=== PATIENT | female | born 1995 | race African-American/Black ===

== ENCOUNTER → 2016-09-18 | Outpatient (CLI) | payer OTHER ==
[~2016-09-18] MED LIST: ARIP1.3I INJ
[2016-09-18 14:09] LABS: PROLACTIN 14.59 ng/mL
== END | disposition home or self-care (01) ==
LOC: C.LAB1850 12:07
PROVIDERS: ATTEND Family Medicine
DX: N64.3 Galactorrhea not associated with childbirth (principal); Z20.2 Contact with and (suspected) exposure to infections with a predominantly sexual mode of transmission; F19.10 Other psychoactive substance abuse, uncomplicated

== ENCOUNTER → 2016-09-21 | Outpatient (CLI) | payer OTHER ==
[2016-09-25 12:10] LABS: CHLAMYDIA TRACH RNA*** NOT DETECTED (NOT DETECTED); GC (NEIS GONORRHOEAE)RNA** NOT DETECTED (NOT DETECTED)
== END | disposition home or self-care (01) ==
LOC: C.LABSPEC 11:08
PROVIDERS: ATTEND Family Medicine
DX: Z20.2 Contact with and (suspected) exposure to infections with a predominantly sexual mode of transmission (principal)

== ENCOUNTER → 2016-11-28 | Outpatient (CLI) | payer OTHER ==
[2016-11-28 13:26] LABS: BASO % 0.6 %; BASO ABS # 0.04 K/uL (0-0.2); COMPLETE YES; EOS % 1.7 %; HEMATOCRIT 43.1 % (37-47); IG% 0.2 %; LYMPH % 33.5 %; LYMPH ABS # 2.15 K/uL (1.2-3.4); MEAN CELL VOLUME 93.9 fL (80-100); MEAN CORPUSCULAR HEMOGLOBIN 32.2 pg (25-34); MEAN CORPUSCULAR HGB CONC 34.3 g/dl (32-36); MEAN PLATELET VOLUME 10.6 fL (7.4-10.4); MONO % 8.9 %; NEUT % 55.1 %; PLATELET COUNT 305 K/uL (130-400); RED BLOOD COUNT 4.59 M/uL (4.2-5.4); WHITE BLOOD COUNT 6.42 K/uL (4.8-10.8)
[2016-11-28 13:51] LABS: ALT/SGPT 20 U/L (12-78); AST/SGOT 12 U/L (15-37); BLOOD UREA NITROGEN 13 mg/dl (7-18); BUN/CREATININE RATIO 15.2 (10-20); CALCIUM 9.3 mg/dl (8.5-10.1); CARBON DIOXIDE 29 mmol/L (21-32); CHLORIDE 106 mmol/L (98-107); CREATININE 0.86 mg/dl (0.60-1.20); GLUCOSE 85 mg/dl (70-99); POTASSIUM 3.8 mmol/L (3.5-5.1); SODIUM 138 mmol/L (136-145)
[2016-11-28 13:54] LABS: ALB/GLOB RATIO 1.1 (0.9-2); ALKALINE PHOSPHATASE 78 U/L (45-117)
== END | disposition home or self-care (01) ==
LOC: C.LAB1850 12:27
PROVIDERS: ATTEND Student in an Organized Health Care Education/Training Program
DX: Z79.899 Other long term (current) drug therapy (principal)

== ENCOUNTER → 2017-01-26 | Outpatient (CLI) | payer OTHER ==
[2017-01-26 14:53] LABS: HEMATOCRIT 40.3 % (37-47); MEAN CELL VOLUME 95.7 fL (80-100); MEAN CORPUSCULAR HEMOGLOBIN 31.8 pg (25-34); MEAN CORPUSCULAR HGB CONC 33.3 g/dl (32-36); MEAN PLATELET VOLUME 11.1 fL (7.4-10.4); PLATELET COUNT 247 K/uL (130-400); RED BLOOD COUNT 4.21 M/uL (4.2-5.4); WHITE BLOOD COUNT 11.12 K/uL (4.8-10.8)
== END | disposition home or self-care (01) ==
LOC: C.LAB1850 13:26
PROVIDERS: ATTEND Student in an Organized Health Care Education/Training Program
DX: Z79.899 Other long term (current) drug therapy (principal)

== ENCOUNTER → 2017-04-10 | Outpatient (CLI) | payer OTHER ==
[~2017-04-10] MED LIST changes: +AMOX875T3 PO; +BCPILLS PO; +DIVA500T3 PO; +FLUT0.15 NAE; +NAPR1TAB48 PO; +ONDA4TAB10 SL; +OXYC1CAP5 PO
== END | disposition home or self-care (01) ==
LOC: C.LAB1850 14:17
PROVIDERS: ATTEND Student in an Organized Health Care Education/Training Program
DX: Z51.81 Encounter for therapeutic drug level monitoring (principal); Z79.899 Other long term (current) drug therapy

== ENCOUNTER → 2017-04-18 | Outpatient (CLI) | payer OTHER ==
[~2017-04-18] MED LIST changes: -AMOX875T3 PO; -BCPILLS PO; -DIVA500T3 PO; -FLUT0.15 NAE; -NAPR1TAB48 PO; -ONDA4TAB10 SL; -OXYC1CAP5 PO
[2017-04-18 17:15] LABS: FOLLICLE STIMULAT HORMONE 7.45 IU/L; LUTEINIZING HORMONE 12.09 IU/L
== END | disposition home or self-care (01) ==
LOC: C.LAB1850 15:07
PROVIDERS: ATTEND Neuromusculoskeletal Medicine & OMM
DX: N91.2 Amenorrhea, unspecified (principal); R63.5 Abnormal weight gain

== ENCOUNTER → 2017-04-27 | Outpatient (CLI) | payer OTHER | END | disposition home or self-care (01) | LOC: C.LABSPEC 13:41 | PROVIDERS: ATTEND Physician Assistant | DX: Z01.419 Encounter for gynecological examination (general) (routine) without abnormal findings (principal); N76.6 Ulceration of vulva ==

== ENCOUNTER → 2017-04-27 | Outpatient (CLI) | payer OTHER | END | disposition home or self-care (01) | LOC: C.PAPS 16:32 | PROVIDERS: ATTEND Physician Assistant | DX: Z01.419 Encounter for gynecological examination (general) (routine) without abnormal findings (principal) ==

== ENCOUNTER → 2017-05-17 | Outpatient (CLI) | payer OTHER | END | disposition home or self-care (01) | LOC: C.LABSPEC 15:58 | PROVIDERS: ATTEND Physician Assistant | DX: N91.2 Amenorrhea, unspecified (principal) ==

== ENCOUNTER → 2017-06-21 | Outpatient (CLI) | payer OTHER | END | disposition home or self-care (01) | LOC: C.LABSPEC 13:43 | PROVIDERS: ATTEND Physician Assistant | DX: Z20.2 Contact with and (suspected) exposure to infections with a predominantly sexual mode of transmission (principal); N91.2 Amenorrhea, unspecified ==

== ENCOUNTER → 2017-07-17 | Outpatient (CLI) | payer OTHER ==
[2017-07-17 15:14] LABS: ALBUMIN 3.5 gm/dl (3.4-5.0); ALKALINE PHOSPHATASE 66 U/L (45-117); ALT/SGPT 14 U/L (12-78); AST/SGOT 9 U/L (15-37); TOTAL PROTEIN 7.2 gm/dl (6.4-8.2)
== END | disposition home or self-care (01) ==
LOC: C.LAB1850 13:39
PROVIDERS: ATTEND Student in an Organized Health Care Education/Training Program
DX: Z51.81 Encounter for therapeutic drug level monitoring (principal); Z79.899 Other long term (current) drug therapy

== ENCOUNTER → 2017-11-19 | Outpatient (CLI) | payer OTHER ==
[~2017-11-19] MED LIST changes: -ARIP1.3I INJ; +BCPILLS PO; +DIVA500T3 PO; +FLUT0.15 NAE
== END | disposition home or self-care (01) ==
LOC: C.LABBC 14:55
PROVIDERS: ATTEND Neuromusculoskeletal Medicine & OMM
DX: Z72.51 High risk heterosexual behavior (principal); Z20.2 Contact with and (suspected) exposure to infections with a predominantly sexual mode of transmission

== ENCOUNTER 2019-06-05 19:20 | Inpatient (IN) ==
[2019-06-05] MEDS ORDERED: LORazepam 2 MG/ML VIAL (IM USE) IM STA (19:47)
[2019-06-05] MEDS ORDERED: HALOPERIDOL LACTATE 5 MG/ML 1 ML VIAL IM STA (19:47)
[2019-06-05] MEDS ORDERED: DiphenhydrAMINE HCL 50 MG/ML VIAL IM STA (19:47)
[2019-06-05] MEDS ORDERED: HALOPERIDOL LACTATE 5 MG/ML 1 ML VIAL IM PRN (20:11)
[2019-06-05] MEDS ORDERED: DiphenhydrAMINE HCL 50 MG/ML VIAL IM PRN (20:11)
[2019-06-05] MEDS ORDERED: LORazepam 2 MG/ML VIAL (IM USE) IM PRN (20:11)
[2019-06-05 21:10] LABS: Basophils # (auto) 0.02 K/uL (0-0.2); Basophils % (auto) 0.2 %; Eosinophils # (auto) 0.01 K/uL (0-0.5); Eosinophils % (auto) 0.1 %; Hematocrit (blood only) 41.6 % (37-47); Hemoglobin 14.2 g/dL (12.0-16.0); Immature Granulocytes # (auto) 0.02 K/uL (0.00-0.02); Immature Granulocytes % (auto) 0.2 %; Lymphocytes # (auto) 1.14 K/uL (1.2-3.4); Lymphocytes % (auto) 10.9 %; Mean Corpuscular Hemoglobin 32.9 pg (25-34); Mean Corpuscular Hgb Conc 34.1 g/dL (32-36); Mean Corpuscular Volume 96.3 fL (80-100); Mean Platelet Volume 10.4 fL (7.4-10.4); Monocytes # (auto) 0.74 K/uL (0.11-0.59); Monocytes % (auto) 7.1 %; Neutrophils # (auto) 8.55 K/uL (1.4-6.5); Neutrophils % (auto) 81.5 %; Platelet Count 296 K/uL (130-400); RDW Coefficient of Variation 12.6 % (11.5-14.5); Red Blood Count 4.32 M/uL (4.2-5.4); White Blood Count 10.48 K/uL (4.8-10.8)
[2019-06-05 21:26] LABS: Albumin Level 4.3 gm/dl (3.4-5.0); BUN Creatinine Ratio 7.1 (10-20); Calcium 9.8 mg/dl (8.5-10.1); Creatinine Clr Calc Pharmacy 62.4 ml/min; Est GFR (African American) 77.4; Est GFR (Non-African American) 66.8; Potassium 3.1 mmol/L (3.5-5.1)
[2019-06-05 21:37] LABS: Albumin Globulin Ratio 1.2 (0.9-2); Bilirubin,Total 0.4 mg/dl (0.2-1); Globulin 3.5 gm/dl (2.5-4.0); Thyroid Stimulating Hormone 0.515 uIu/ml (0.300-4.500); Total Protein 7.8 gm/dl (6.4-8.2)
[2019-06-05 21:42] LABS: Pregnancy Test, Serum Negative (Negative)
[2019-06-05 23:07] LABS: Appearance Urine Clear (Clear); Bacteria Urine Automated 1+ (Negative); Bilirubin Urine Negative (Negative); Blood Urine Trace (Negative); Color Urine Yellow; Epithelial Cell Urine Auto >30 /lpf (0-5); Glucose Urine UA Negative (Negative); Ketones Urine Trace (Negative); Leukocyte Esterase Urine Trace (Negative); Nitrite Urine Negative (Negative); Protein Urine Negative (Negative); RBC Urine Automated 0-4 /hpf (0-4); Specific Gravity Urine 1.012 (1.000-1.030); Urobilinogen Urine Negative (Negative); pH Urine 5.5 (4.5-7.5)
[2019-06-05 23:25] LABS: Amphetamines+Metham, Urine Neg (Neg); Barbiturates, Urine Neg (Neg); Benzodiazepine, Urine Neg (Neg); Cocaine, Urine Neg (Neg); MDMA (Ecstacy), Urine Neg (Neg); Methadone, Urine Neg (Neg); Opiate, Urine Neg (Neg); Phencyclidine, Urine Neg (Neg)
--- NOTE | 2019-06-06 01:31 | Emergency Department Note ---
Entered by Ny Negron acting as a scribe for Bob Rushing MD History of Present Illness General Chief complaint: Mental Health Evaluation Stated complaint: MENTAL HEALTH EVAL Time Seen by Provider: 06/05/19 19:30 Source: family (mom) History of Present Illness Onset (ago): week(s) (1) Location: head (general) Pain Consistency: + other (episodes) Quality: + other (paranoia) Associated symptoms: + other (christin, marijuana and methamphetamine use) The patient is a 24 year old female who presents to the Emergency Room for a mental health evaluation for episodes of paranoia occurring for the past week. The patient eloped prior to be seen. She was running without clothing through the parking lot. The [place] police department was called. The patient's mom reports the patient has had mental health problems including bipolar disorder since she was a child. She states the patient has been hospitalized numerous times. She notes the patient has been on a variety of medications, and notes Lamictal seemed to work best while she was compliant with it. The patient's mom reports the patient is currently off her medication, is not seeing a psychiatrist, and is using both marijuana and methamphetamines. She notes she went to crisis with the patient at the beginning of this week however the patient refused to sign the papers and ripped them up instead and walked out. The patient's mom states the patient has a history of cutting. She states she went to the patient's apartment [facility] to bring her her TV back which the patient had been paranoid about the previous night. She states there was blood all over the patient's sheets. She states she said she was not going to talk with the patient until the patient decided to get help. The patient's mom reports the patient stated she wanted to go to the [facility]. She states the patient then became manic on the way to the ER. Home Medications Home Medications Medication Instructions Recorded Confirmed Type trazodone 50 mg tablet 50 mg PO DAILY #30 tab 06/02/19 06/05/19 Rx Allergies Allergy/AdvReac Type Severity Reaction Status Date / Time No Known Allergies Allergy Unverified 06/05/19 23:26 Past Med/Surg History Medical History Bipolar disorder Lung nodule, solitary Surgical History No history of previous surgery Family History Aunt Breast cancer Mother Myocardial infarction Other Ovarian cancer Denies family history of Prostate cancer Colorectal cancer Social History Preferred Language: Singaporean Communication Ability: Effective Visual Impairment: No Limitations Hearing Ability: Normal marital status: Current Living Situation: Alone current occupational status: employed current occupation: [email or web address] Feels Safe at Home: Yes Smoking Status: Current every day smoker Cigarettes Per Day: 20 ; Hx Alcohol Use: Yes Alcohol type: beer Alcohol Intake Frequency: Daily Hx Substance Use: Yes substance use type: marijuana Last Used Substance: Hours (ago) Childhood Exposure to Second-Hand Smoke: Yes Dental Care, Regularly: Yes Physical Activity Frequency: Daily Seatbelt Use: always Sunscreen Use: No Review of Systems See HPI for pertinent positives & negatives. and A total of 10 systems reviewed and were otherwise negative Physical Exam Vital Signs Vital Signs - 24 hr 06/05/19 19:24 06/05/19 21:57 06/05/19 23:54 Temperature 36.9 C Temperature Source Oral Pulse Rate 141 H Pulse Rate [Finger] 73 Respiratory Rate 24 18 18 Respiratory Effort / Characteristics Non-Labored Spontaneous Respiratory Depth Normal Blood Pressure 150/85 H Blood Pressure [Right Arm] Blood Pressure Mean 106 Blood Pressure Mean [Right Arm] Pulse Oximetry 99 96 Oxygen Delivery Method Room Air Room Air Sepsis Action Taken by Nursing No Action Required 06/06/19 00:38 Temperature Temperature Source Pulse Rate Pulse Rate [Finger] Respiratory Rate Respiratory Effort / Characteristics Respiratory Depth Blood Pressure Blood Pressure [Right Arm] 123/70 Blood Pressure Mean Blood Pressure Mean [Right Arm] 87 Pulse Oximetry Oxygen Delivery Method Sepsis Action Taken by Nursing GENERAL: Sleeping comfortably. EYE EXAM: Normal conjunctiva. PERRL, no anisocoria and EOM's grossly intact w/o pain. OROPHARYNX: Moist mucous membranes. Grossly normal dentition. NECK: Supple, no nuchal rigidity, no adenopathy. No signs of meningismus. LUNGS: Bilateral wheezes. Normal chest wall mechanics. HEART: NSR, no MRG. ABDOMEN: Abdomen soft, normo-active bowel sounds, no masses, no rebound or guarding. BACK: No bruising, no obvious step-offs. SKIN: No rashes and no bruising. UPPER EXTREMITIES: Upper extremities are grossly normal. LOWER EXTREMITIES: No pitting edema. NEURO EXAM: Cranial nerves II-XII grossly intact, moves all 4 extremities on command w/o issue. Course Course 1944: Past medical records reviewed. The patient was evaluated in room A04B. The patient was combative and needed to be restrained. 2119: Upon reevaluation, the patient was prone and sleeping. 0130: The patient was signed out to Dr. Bliss. Administered Medications Discontinued Medications Diphenhydramine HCl (Benadryl) 25 mg IM NOW STA Stop: 06/05/19 19:48 Last Admin: 06/05/19 20:20 Dose: 25 mg Documented by: [id number] Haloperidol Lactate (Haldol) 10 mg IM NOW STA Stop: 06/05/19 19:48 Last Admin: 06/05/19 20:20 Dose: 10 mg Documented by: [id number] Lorazepam (Ativan) 1 mg IM NOW STA Stop: 06/05/19 19:48 Last Admin: 06/05/19 20:20 Dose: 1 mg Documented by: [id number] Critical Care Time Critical Care Time: Yes Total Critical Care Time: 35 I have personally spent 35 minutes of critical care time in the direct management of this patient. This includes bedside care, interpretation of diagnostic studies, and testing, discussion with consultants, patient, and family members, and other required patient management activities. This 35 minut es is in excess of all separately billable procedures. Medical Decision Making Differential Diagnosis Differential diagnoses considered include mood disorder, infection, hypoglycemia, electrolyte abnormalities, cardiac sources, intracerebral event, toxicologic, neurologic, as well as others. Medical Records Attestation: I reviewed the patient's medical records. Home Medications Current Medication List: was personally reviewed by me Laboratory Data Attestation: I reviewed the patient's lab results. Result diagrams: 06/05/19 20:53 06/05/19 20:53 Lab Results 06/05/19 06/05/19 06/05/19 Range/Units 20:53 20:53 20:53 WBC 10.48 (4.8-10.8) K/uL RBC 4.32 (4.2-5.4) M/uL Hgb 14.2 (12.0-16.0) g/dL Hct 41.6 (37-47) % MCV 96.3 (80-100) fL MCH 32.9 (25-34) pg MCHC 34.1 (32-36) g/dL RDW Std Deviation 44.0 (36.4-46.3) fL RDW Coeff of Conner 12.6 (11.5-14.5) % Plt Count 296 (130-400) K/uL MPV 10.4 (7.4-10.4) fL Immature Gran % (Auto) 0.2 % Neut % (Auto) 81.5 % Lymph % (Auto) 10.9 % [place] % (Auto) 7.1 % Eos % (Auto) 0.1 % Baso % (Auto) 0.2 % Immature Gran # (Auto) 0.02 (0.00-0.02) K/uL Neut # (Auto) 8.55 H (1.4-6.5) K/uL Lymph # (Auto) 1.14 L (1.2-3.4) K/uL [place] # (Auto) 0.74 H (0.11-0.59) K/uL Eos # (Auto) 0.01 (0-0.5) K/uL Baso # (Auto) 0.02 (0-0.2) K/uL Sodium 140 (136-145) mmol/L Potassium 3.1 L (3.5-5.1) mmol/L Chloride 108 H (98-107) mmol/L Carbon Dioxide 18 L (21-32) mmol/L Anion Gap 14.0 H (3-11) BUN 8 (7-18) mg/dl Creatinine 1.14 (0.6-1.2) mg/dl Est Cr Clr Drug Dosing 62.4 ml/min Est GFR ( Amer) 77.4 Est GFR (Non-Af Amer) 66.8 BUN/Creatinine Ratio 7.1 L (10-20) Glucose 146 H (70-99) mg/dl Calcium 9.8 (8.5-10.1) mg/dl Total Bilirubin 0.4 (0.2-1) mg/dl AST 16 (15-37) U/L ALT 20 (12-78) U/L Alkaline Phosphatase 80 (45-117) U/L Total Protein 7.8 (6.4-8.2) gm/dl Albumin 4.3 (3.4-5.0) gm/dl Globulin 3.5 (2.5-4.0) gm/dl Albumin/Globulin Ratio 1.2 (0.9-2) TSH 0.515 (0.300-4.500) uIu/ml HCG, Qual (Negative) Urine Color Urine Appearance (Clear) Urine pH (4.5-7.5) Ur Specific [place] (1.000-1.030) Urine Protein (Negative) Urine Glucose (UA) (Negative) Urine Ketones (Negative) Urine Blood (Negative) Urine Nitrite (Negative) Urine Bilirubin (Negative) Urine Urobilinogen (Negative) Ur Leukocyte Esterase (Negative) Urine WBC (Auto) (0-5) /hpf Urine RBC (Auto) (0-4) /hpf U Hyaline Cast (Auto) (0-5) /lpf U Epithel Cells (Auto) (0-5) /lpf Urine Bacteria (Auto) (Negative) Salicylates 5.0 (2.8-20) mg/dl Urine Opiates Screen (Neg) Ur Methadone, Qual (Neg) Acetaminophen 17 (10-30) ug/ml Urine Barbiturates (Neg) Ur Phencyclidine (PCP) (Neg) U Amphetamin/Meth Scrn (Neg) MDMA (Ecstasy) Screen (Neg) U Benzodiazepines Scrn (Neg) Ur Cocaine Metabolite (Neg) U Marijuana (THC) Screen (Neg) Ethyl Alcohol mg/dL (0-3) mg/dl 06/05/19 06/05/19 06/05/19 Range/Units 20:53 20:53 22:55 WBC (4.8-10.8) K/uL RBC (4.2-5.4) M/uL Hgb (12.0-16.0) g/dL Hct (37-47) % MCV (80-100) fL MCH (25-34) pg MCHC (32-36) g/dL RDW Std Deviation (36.4-46.3) fL RDW Coeff of Conner (11.5-14.5) % Plt Count (130-400) K/uL MPV (7.4-10.4) fL Immature Gran % (Auto) % Neut % (Auto) % Lymph % (Auto) % [place] % (Auto) % Eos % (Auto) % Baso % (Auto) % Immature Gran # (Auto) (0.00-0.02) K/uL Neut # (Auto) (1.4-6.5) K/uL Lymph # (Auto) (1.2-3.4) K/uL [place] # (Auto) (0.11-0.59) K/uL Eos # (Auto) (0-0.5) K/uL Baso # (Auto) (0-0.2) K/uL Sodium (136-145) mmol/L Potassium (3.5-5.1) mmol/L Chloride (98-107) mmol/L Carbon Dioxide (21-32) mmol/L Anion Gap (3-11) BUN (7-18) mg/dl Creatinine (0.6-1.2) mg/dl Est Cr Clr Drug Dosing ml/min Est GFR ( Amer) Est GFR (Non-Af Amer) BUN/Creatinine Ratio (10-20) Glucose (70-99) mg/dl Calcium (8.5-10.1) mg/dl Total Bilirubin (0.2-1) mg/dl AST (15-37) U/L ALT (12-78) U/L Alkaline Phosphatase (45-117) U/L Total Protein (6.4-8.2) gm/dl Albumin (3.4-5.0) gm/dl Globulin (2.5-4.0) gm/dl Albumin/Globulin Ratio (0.9-2) TSH (0.300-4.500) uIu/ml HCG, Qual Negative (Negative) Urine Color Urine Appearance (Clear) Urine pH (4.5-7.5) Ur Specific [place] (1.000-1.030) Urine Protein (Negative) Urine Glucose (UA) (Negative) Urine Ketones (Negative) Urine Blood (Negative) Urine Nitrite (Negative) Urine Bilirubin (Negative) Urine Urobilinogen (Negative) Ur Leukocyte Esterase (Negative) Urine WBC (Auto) (0-5) /hpf Urine RBC (Auto) (0-4) /hpf U Hyaline Cast (Auto) (0-5) /lpf U Epithel Cells (Auto) (0-5) /lpf Urine Bacteria (Auto) (Negative) Salicylates (2.8-20) mg/dl Urine Opiates Screen Neg (Neg) Ur Methadone, Qual Neg (Neg) Acetaminophen (10-30) ug/ml Urine Barbiturates Neg (Neg) Ur Phencyclidine (PCP) Neg (Neg) U Amphetamin/Meth Scrn Neg (Neg) MDMA (Ecstasy) Screen Neg (Neg) U Benzodiazepines Scrn Neg (Neg) Ur Cocaine Metabolite Neg (Neg) U Marijuana (THC) Screen Pos H (Neg) Ethyl Alcohol mg/dL < 3.0 (0-3) mg/dl 06/05/19 Range/Units 22:55 WBC (4.8-10.8) K/uL RBC (4.2-5.4) M/uL Hgb (12.0-16.0) g/dL Hct (37-47) % MCV (80-100) fL MCH (25-34) pg MCHC (32-36) g/dL RDW Std Deviation (36.4-46.3) fL RDW Coeff of Conner (11.5-14.5) % Plt Count (130-400) K/uL MPV (7.4-10.4) fL Immature Gran % (Auto) % Neut % (Auto) % Lymph % (Auto) % [place] % (Auto) % Eos % (Auto) % Baso % (Auto) % Immature Gran # (Auto) (0.00-0.02) K/uL Neut # (Auto) (1.4-6.5) K/uL Lymph # (Auto) (1.2-3.4) K/uL [place] # (Auto) (0.11-0.59) K/uL Eos # (Auto) (0-0.5) K/uL Baso # (Auto) (0-0.2) K/uL Sodium (136-145) mmol/L Potassium (3.5-5.1) mmol/L Chloride (98-107) mmol/L Carbon Dioxide (21-32) mmol/L Anion Gap (3-11) BUN (7-18) mg/dl Creatinine (0.6-1.2) mg/dl Est Cr Clr Drug Dosing ml/min Est GFR ( Amer) Est GFR (Non-Af Amer) BUN/Creatinine Ratio (10-20) Glucose (70-99) mg/dl Calcium (8.5-10.1) mg/dl Total Bilirubin (0.2-1) mg/dl AST (15-37) U/L ALT (12-78) U/L Alkaline Phosphatase (45-117) U/L Total Protein (6.4-8.2) gm/dl Albumin (3.4-5.0) gm/dl Globulin (2.5-4.0) gm/dl Albumin/Globulin Ratio (0.9-2) TSH (0.300-4.500) uIu/ml HCG, Qual (Negative) Urine Color Yellow Urine Appearance Clear (Clear) Urine pH 5.5 (4.5-7.5) Ur Specific [place] 1.012 (1.000-1.030) Urine Protein Negative (Negative) Urine Glucose (UA) Negative (Negative) Urine Ketones Trace H (Negative) Urine Blood Trace H (Negative) Urine Nitrite Negative (Negative) Urine Bilirubin Negative (Negative) Urine Urobilinogen Negative (Negative) Ur Leukocyte Esterase Trace H (Negative) Urine WBC (Auto) 1-5 (0-5) /hpf Urine RBC (Auto) 0-4 (0-4) /hpf U Hyaline Cast (Auto) 1-5 (0-5) /lpf U Epithel Cells (Auto) >30 H (0-5) /lpf Urine Bacteria (Auto) 1+ H (Negative) Salicylates (2.8-20) mg/dl Urine Opiates Screen (Neg) Ur Methadone, Qual (Neg) Acetaminophen (10-30) ug/ml Urine Barbiturates (Neg) Ur Phencyclidine (PCP) (Neg) U Amphetamin/Meth Scrn (Neg) MDMA (Ecstasy) Screen (Neg) U Benzodiazepines Scrn (Neg) Ur Cocaine Metabolite (Neg) U Marijuana (THC) Screen (Neg) Ethyl Alcohol mg/dL (0-3) mg/dl MDM Narrative The patient is a 24 year old female who presents to the Emergency Room for a mental health evaluation for episodes of paranoia occurring for the past week Prior to being seen the patient had eloped and was unclothed running around the parking lot. Please were called and the patient was brought back to the emergency department. Patient was seen and evaluated at the bedside. The patient was initially very combative and aggressive and after attempts to de-escalate the situation the patient would not respond to verbal de-escalation but the patient had to be physically restrained and chemically sedated for the safety of patient as well as staff. Once the patient was was agitated the patient's exam was completed. Patient did have some scant wheezes may be related to her chronic methamphetamine use which she did report using inhaled. His blood work does show a mild anion gap and slightly lower bicarb but I believe this is likely related to dehydration. Patient does have a normal white count H&H. The patient's potassium slightly low. This may be repleted in the diet with the patient is more awake and able to tolerate by mouth. The patient's urinalysis shows bacteria but does have epithelial cells. Do not believe she has a UTI. UDS does show positive for THC. Alcohol is negative. The patient does have positive but not elevated Tylenol and salicylates. PCP and meth are negative. Patient has normal LFTs. The patient's initial tachycardia did resolve with sedation. I believe her tachycardia was secondary to her agitation. Patient was signed out pending reevaluation and disposition. Impression & Plan Paranoia, Aggressive behavior, Dehydration, Hypokalemia Discharge Plan Visit Data Chief Complaint: Mental Health Evaluation Stated Complaint: MENTAL HEALTH EVAL ED Provider: Bob Rushing Discharge Problem: Paranoia, Aggressive behavior, Dehydration, Hypokalemia Forms Stand Alone Forms: My [facility], Suicide Prevention Resources Prescriptions Prescriptions: No Action trazodone 50 mg tablet 50 mg PO DAILY Qty: 30 RF: 5 Referrals Referrals: Jesse Pruett III, CRNP [Primary Care Provider] - The pauloibe's documentation has been prepared under my direction and personally reviewed by me in its entirety. I confirm that the note above accurately reflects all work, treatment, procedures, and medical decision making performed by me.
--- NOTE | 2019-06-06 03:13 | Emergency Department Note ---
ED Visit Note This case was signed out to me at change of shift awaiting mental health evaluation. 0230: The ED psychiatric pillowcase turner attempted to evaluate the patient around 2 AM but could not arouse her. 0405: The patient is hemodynamically stable at this time. She is sleeping. 0800: The case will be signed out to Dr. Gilbert at change of shift for further psychiatric evaluation. .
--- NOTE | 2019-06-06 12:26 | Emergency Department Note ---
ED Visit Note The patient was accepted to the [facility]. Secure transport arranged. .
--- NOTE | 2019-06-06 15:17 | Emergency Department Note ---
ED Visit Note Correction to the last note. The patient was accepted to [facility] [address] .
[2019-06-06] MEDS ORDERED: BISMUTH SUBSALICYLATE PER ML OMNICELL CHARGE PO PRN ×2 (16:23→17:02)
[2019-06-06] MEDS ORDERED: MAGNESIUM HYDROXIDE SUSP 30 ML UDC PO PRN ×2 (16:23→17:02)
[2019-06-06] MEDS ORDERED: ALUMINUM/MAGNESIUM SUSP 30 ML UDC PO PRN ×2 (16:23→17:02)
[2019-06-06] MEDS ORDERED: SODIUM CHLORIDE 0.65% NA SOLN 45 ML (OCEAN) PRN ×2 (16:23→17:02)
[2019-06-06] MEDS ORDERED: ACETAMINOPHEN 325 MG TAB PO PRN (16:23)
[2019-06-06] MEDS ORDERED: POTASSIUM CHLORIDE 20 MEQ TABCR PO STA (16:32)
--- NOTE | 2019-06-06 16:42 | History & Physical ---
Date of Service June 06, 2019 Impression / Recommendations Impression This 24-year-old woman was brought to the emergency room by her mother after she contacted her mother and reported that she felt that she was "spiraling" out of control. The patient's mother indicates that the patient has been "paranoid" and generally disturbed for much of the past week. 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 By the patient's family's report, as well as by the patient's own report, she has been nonadherent with psychiatric medications, and has not recently participated in any form of psychiatric treatment. She tells us that she has a known diagnosis of bipolar disorder, as well as a history of attention deficit hyperactivity disorder (although she has trouble telling us what the symptoms of that are in her case), and obsessive-compulsive disorder. As to obsessive-compulsive disorder, she says that she feels compelled to arrange objects in certain order and in certain ways, and often finds that she has to count or check items in a ritualized fashion as a way of avoiding increased anxiety. She notes that previously she had engaged in excessive handwashing, but notes that recently that behavior has been under fairly good control. The patient's behavior in the emergency room prior to her admission to the behavioral health unit, and prior to receiving a fairly large dose of haloperidol and lorazepam, was quite just controlled and agitated. Mechanical restraints were reportedly required in order to secure the patient's safety and the safety of others in the area. Currently, the patient is much more calm, but continues to tell us that she feels "paranoid" and very anxious. She reports that she does not have a history of suicide attempts (this will need to be verified through collateral information), but she does acknowledge a history of intentional self-injurious behaviors that include self cutting, superficially, such as on her forearm. Within this context, the patient's mother reports that when she recently went to the patient's residence she found evidence of blood on the patient's sheets, and the patient has several superficial abrasions on her forearm. According to the patient, she has not responded favorably to a number of psychiatric medications, including, but not limited to, lithium carbonate and Depakote. However, her mother reports that she seems to have done best on lamotrigine, and the patient agrees that this medication was helpful. She also tells us that she feels that aripiprazole was helpful in addressing her paranoia, reducing her anxiety, and stabilizing her mood. (1) Paranoia: 06/06/19 -The patient describes herself as being "paranoid." Although she has dif ficulty explaining what she means by the use of the word "paranoia," and while she does not reveal any tracie delusional believes, she does say that she has difficulty trusting other people, and often doubts the veracity and intentions of other people. -The patient adds that she feels that her paranoia is brought on by a chronic feeling of anxiety, which she describes as a sense that "something bad is about to happen," even though she is unable to recognize what that might be. -Because the patient has reported that her paranoia has responded favorably to aripiprazole in the past, we will begin the aripiprazole 10 mg daily and titrate as indicated. -The patient is also been referred for individual, group and activity therapies and will be encouraged to attend as a way of developing improved individual coping strategies. Present on Admission?: Yes (2) Aggressive behavior: 06/06 -The patient's behavior in the emergency room was extremely agitated and largely [id number]. At one point she required mechanical restraints in order to preserve her safety and the safety of others around her. She also acknowledges that, in the past, she has "defended herself" [physically] when necessary when threatened, and this is within the context of her telling us that she feels "paranoid." However, the patient also tells us that she is having no thoughts currently of causing physical harm to anyone and that she will let us know if she begins to feel unsafe or threatened on the unit. Present on Admission?: Yes (3) Dehydration: 06/06 -Patient acknowledges that her oral intake has been poor recently. We will encourage fluids and adequate nutrition during the stay. (4) Hypokalemia: 06/06 -We will encourage adequate nutrition during the stay. -Potassium chloride supplement 20 mEq has been ordered, and her serum potassium will be rechecked on 06/07/2019. -The patient is not exhibiting any symptoms of hypokalemia at present. Present on Admission?: Yes (5) Bipolar disorder: 06/06 -Both the patient and her mother report that she has a history of responding favorably to lamotrigine as a mood stabilizer, as well as to aripiprazole, also has a mood stabilizer and is an antipsychotic. The issue, as noted above has been that the patient is often nonadherent with her outpatient medications and other forms of treatment. -Lamotrigine 25 mg daily has been ordered. Material risks and anticipated benefits of lamotrigine have been reviewed with the patient. Specific risks reviewed with the patient included, but were not limited to, risk of Nicolas- Ismael syndrome and a rash. The patient tells us that she has no history of having any difficulty or side effects associated with lamotrigine in the past. The plan will be to titrate lamotrigine at the standard rate. -Aripiprazole 10 mg daily has been ordered and will be titrated as indicated. The patient reports that she has previously taken aripiprazole. Material risks and anticipated benefits of aripiprazole reviewed with the patient, and she indicates that she has had no problem or side effects with aripiprazole in the past. -Patient reports that she has difficulty sleeping, possibly as the result of her bipolar disorder or as a result of her anxiety. In the past, she has responded favorably to trazodone 50 mg at bedtime as needed for sleep, and this medication at this dose has been ordered. Present on Admission?: Yes Inventory Assets Strengths: Supportive family. Willing to accept treatment. Able to correctly state her given diagnoses. History of favorable response to psychiatric medications and other forms of treatment Needs: Improved adherence with medications. Improved mood regulation. Resolution of paranoia. Avoidance of dyscontrolled, agitated behaviors. Risk Factors Assessment History of multiple psychiatric hospitalizations. History of intentional self- harm. History of impulsive behaviors. Poorly regulated mood. Nonadherence with psychiatric treatment. Substance use disorders. Male: No : No Do You Have Access To A Gun?: No Mental Health Diagnoses: Yes Substance Use Disorders: Yes Previous Attempt: No (The patient tells us that she does not have any history of previous suicide attempts, but she does acknowledge a history of intentional self-injurious behaviors in the form of superficial self cutting.) Previous Psychiatric Hospitalization: Yes Hopelessness: No Smoker: Yes Protective Factors Assessment : No (The patient tells us that she is technically still , but is and in the process of filing for divorce. She lives alone.) Responsible for Young Children: No (The patient reports that she has never had children.) Employed: No (fired from job at [employer] yesterday) Stable Relationships: Yes Supportive Family: Yes Good Rapport with Provider: No Absence of Any Risk Factors Above: No Psychiatric History Identifying Data GARY YANES is a 24-year-old F who currently lives in alone in [place]. She reports that she has a history of bipolar disorder, ADHD, and OCD. There is also history of stimulant abuse. She was admitted on 06/06/19 12:59 on a 302 involuntary commitment because of agitated, dyscontrolled, and physically aggressive behavior coupled with reports of severe depression and paranoia. Chief Complaint "I got paranoid". History of Present Illness The patient is a 24 year old female who presented to the Emergency Room for a mental health evaluation for episodes of paranoia occurring for the past week. 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 The patient was brought to the emergency department, but eloped prior to be seen. Reportedly, was running without clothing through the parking lot in below freezing temperatures. The [place] police department was called and the patient was returned to the emergency department. Information provided by the patient's mother includes a report the patient has had mental health problems including bipolar disorder since she was a child. The mother states the patient has been hospitalized numerous times, most recently and most often at [facility]. The patient mother also notes that the patient has been on a variety of medications, and, of these, lamotrigine seemed to be the most effective, although adherence with medications reportedly has always been an issue. The patient, herself, says that she feels that lamotrigine was helpful, and that she also feels that aripiprazole was helpful in stabilizing her mood and addressing what she refers to as her "paranoia." The patient also acknowledges that she does stop taking her psychiatric medications and further acknowledges that she had been off her psychiatric medications for some time. She notes that she had been taking Depakote, but felt that it did not help and s he would prefer not to go back on that medication. The patient acknowledges that she is not currently seeing a mental health professional has not been in treatment recently. She also acknowledges that she has been using, and is using both marijuana and methamphetamines. She has variously reported her last use of methamphetamine is being 2 days ago, 4 days ago, and during her psychiatric admission assessment she said it had been 3 days ago. She has trouble estimating the use amount, and says that she usually uses it "when someone gives it to me or when I can afford it." The patient's mother adds that she went to a crisis center with the patient at the beginning of this week, but the patient refused to sign the patient not only refused to sign the necessary papers, she went on to rip them up and walked out. The patient's mom states the patient has a history of cutting, and the patient acknowledges that she sometimes superficially cuts herself with a sharp object in order to relieve stress. Very superficial abrasions on the patient's forearm are noted.. She states [facility] to [facility] her her TV back which the patient had been paranoid about the previous night. She states there was blood all over the patient's sheets. Past Psychiatric History Previous Psych History: Patient acknowledges that she has had multiple previous psychiatric hospitalizations, most often at [facility]. She tells us that she had originally expected to go to the [facility], but then decided that it might be best to "try a different place this time." Current Psychiatric Diagnosis: Bipolar Disorder Outpatient Services: None currently Previous Psych Admissions: History of multiple psychiatric hospitalizations, most often to [facility] in [place] Do You Have Access To A Gun?: No History of Previous Suicide Attempt: No (Patient had, "suicide attempts is not an issue for me.") Describe Attempts in the Past: Denies prior attempts Past Medication Trials: Patient reports that she has been on multiple different medications including lithium and Depakote. She reports that neither of these medications were particularly helpful. However, she agrees that lamotrigine and aripiprazole have been helpful in the past and indicates that they tend to help with her paranoia and help stabilize her mood. Patient also indicates that she feels the trazodone 50 mg at bedtime has been helpful with sleep. Nonadherence with medications has been an ongoing issue for the patient. Past Head Trauma/Neuro History History of Concussion/Seizure: No (The patient was not fully cooperative with the admission assessment, but does nonverbally indicate that she does not have a history of concussions or seizures.) Allergies Allergy/AdvReac Type Severity Reaction Status Date / Time No Known Allergies Allergy Unverified 06/05/19 23:26 Home Medications Home Medications Medication Instructions Recorded Confirmed Type trazodone 50 mg tablet 50 mg PO DAILY #30 tab 06/02/19 06/05/19 Rx Family History Family History of: Doesn't Know Family Mental Health History Comment: The patient reportedly was adopted at the age of 2. There is at least a suspicion that the patient's biological mother may have been abusing alcohol and/or other drugs during the , and the patient's mother says that she suspects that the patient may suffer from alcohol syndrome Alcohol History Hx of Alcohol Use Over the Past 12 Months: Yes (some) The patient is not particularly cooperative with her substance use history, but says that she drinks "not often" and that "alcohol is not my thing." Smoking Use Have You Smoked or Used Tobacco Products in the Last 30 Days: Yes tobacco type: cigarettes Smoking Status: Current every day smoker Smoking packs per day: 0.5 Substance History Hx of Prescription Med Misuse Over the Past 12 Months: No Hx of Over the Counter Med Misuse Over the Past 12 Months: No Hx of Inhalent Misuse Over the Past 12 Months: No Hx of Organic Substance Use Over the Past 12 Months: Yes (THC - occassional use) Hx of Illegal Substances/Street Drug Use Over Past 12 Months: Yes (Meth - occassional use - last use 2 days ago) Problems as a Result of Past Substance Use: Job Loss and Sustained Bodily Harm Personal History Living Arrangements: [employer] Beliefs That Will Affect Care: None Patient History Medical History Bipolar disorder Lung nodule, solitary Surgical History No history of previous surgery Family History Aunt Breast cancer Mother Myocardial infarction Other Ovarian cancer Denies family history of Prostate cancer Colorectal cancer Social History Preferred Language: Wolof Communication Ability: Effective Visual Impairment: No Limitations Hearing Ability: Normal Basic Sciences Professor Required: No Beliefs That Will Affect Care: None marital status: Current Living Situation: Alone current occupational status: employed current occupation: Assistant Guest Services Manager- [employer] Feels Safe at Home: Yes Smoking Status: Current every day smoker Tobacco Type: cigarettes ; Cigarettes Per Day: 20 ; Hx Alcohol Use: Yes Alcohol type: beer Alcohol Intake Frequency: Daily Hx Substance Use: Yes substance use type: marijuana Last Used Substance: Hours (ago) Childhood Exposure to Second-Hand Smoke: Yes Dental Care, Regularly: Yes Physical Activity Frequency: Daily Seatbelt Use: always Sunscreen Use: No Review of Systems Review of Systems: All systems reviewed & are unremarkable except as noted in HPI & below The admission somatic history, review of systems, and physical exam as approved by Dr. Bob Rushing MD of the emergency department has been reviewed and is excepted for purposes of medical clearance to the behavioral health unit. Physical Exam Psychiatric: Orientation: oriented x 3 The patient is not fully alert. She received haloperidol and lorazepam in the emergency department on an emergency basis, and she is able to cooperate with the interview, but acknowledges that she feels "pretty sleepy." Her behavior on the unit has been substantially more appropriate than that behavior which occurred in the emergency room prior to admission. Apperance: + disheveled and appeared stated age Eye Contact: + poor eye contact Motor Behavior: + psychomotor retardation The patient's speech is somewhat slow and sparse. She offers little information spontaneously Affect: + irritable affect The patient periodically responded to questions by snapping "that is not relevant," or "that does not have anything to do with why I am here." Mood: + depressed mood and + anxious mood Patient tells me that she feels that her anxiety is often overwhelming. Interferes with her s leep and causes her to have great difficulty trusting the motives of other people. Thought Process: + concrete thought process No systematized delus ional beliefs were elicited. The patient regularly refers to herself as being "paranoid," and has some difficulty explaining what she means by the use of this term. She does say, however, that she has difficulty trusting the motives of other people and often does not feel safe. Suicidal Thoughts: denies suicidal thoughts Homicidal Thoughts: denies homicidal thoughts Although she denies homicidal thoughts, she says that she has a history of "defending herself" [physically] when she needs to. Hallucinations: no auditory hallucinations, no visual hallucinations and no tactile hallucinations It was somewhat difficult to assess the patient's memory. As noted above, she was still somewhat sedated during the admission assessment, and was not cooperative with formal cognitive testing. Estimated Intelligence: average estimated intelligence The patient says that she is a high school graduate and briefly attended college, but was not able to keep up with the work and dropped out. Insight: + limited insight Judgement: + poor judgement Vital Signs (Past 24 Hours): Last Vital Signs Temp 36.9 C 06/06/19 14:00 Pulse 58 L 06/06/19 14:00 Resp 18 06/06/19 14:00 BP 118/85 06/06/19 14:00 Pulse Ox 99 06/06/19 13:29 Results & Data ([facility]) Laboratory Results Laboratory Results - last 24 hr 06/05/19 06/05/19 06/05/19 20:53 20:53 20:53 WBC 10.48 RBC 4.32 Hgb 14.2 Hct 41.6 MCV 96.3 MCH 32.9 MCHC 34.1 RDW Std Deviation 44.0 RDW Coeff of Conner 12.6 Plt Count 296 MPV 10.4 Immature Gran % (Auto) 0.2 Neut % (Auto) 81.5 Lymph % (Auto) 10.9 Ripley % (Auto) 7.1 Eos % (Auto) 0.1 Baso % (Auto) 0.2 Immature Gran # (Auto) 0.02 Neut # (Auto) 8.55 H Lymph # (Auto) 1.14 L Ripley # (Auto) 0.74 H Eos # (Auto) 0.01 Baso # (Auto) 0.02 Sodium 140 Potassium 3.1 L Chloride 108 H Carbon Dioxide 18 L Anion Gap 14.0 H BUN 8 Creatinine 1.14 Est Cr Clr Drug Dosing 62.4 Est GFR ( Amer) 77.4 Est GFR (Non-Af Amer) 66.8 BUN/Creatinine Ratio 7.1 L Glucose 146 H Calcium 9.8 Total Bilirubin 0.4 AST 16 ALT 20 Alkaline Phosphatase 80 Total Protein 7.8 Albumin 4.3 Globulin 3.5 Albumin/Globulin Ratio 1.2 TSH 0.515 HCG, Qual Urine Color Urine Appearance Urine pH Ur Specific [place] Urine Protein Urine Glucose (UA) Urine Ketones Urine Blood Urine Nitrite Urine Bilirubin Urine Urobilinogen Ur Leukocyte Esterase Urine WBC (Auto) Urine RBC (Auto) U Hyaline Cast (Auto) U Epithel Cells (Auto) Urine Bacteria (Auto) Salicylates 5.0 Urine Opiates Screen Ur Methadone, Qual Acetaminophen 17 Urine Barbiturates Ur Phencyclidine (PCP) U Amphetamin/Meth Scrn MDMA (Ecstasy) Screen U Benzodiazepines Scrn Ur Cocaine Metabolite U Marijuana (THC) Screen U Marijuana THC Carboxy Drug Screen Comment Ethyl Alcohol mg/dL 06/05/19 06/05/19 06/05/19 20:53 20:53 22:55 WBC RBC Hgb Hct MCV MCH MCHC RDW Std Deviation RDW Coeff of Conner Plt Count MPV Immature Gran % (Auto) Neut % (Auto) Lymph % (Auto) [place] % (Auto) Eos % (Auto) Baso % (Auto) Immature Gran # (Auto) Neut # (Auto) Lymph # (Auto) [place] # (Auto) Eos # (Auto) Baso # (Auto) Sodium Potassium Chloride Carbon Dioxide Anion Gap BUN Creatinine Est Cr Clr Drug Dosing Est GFR ( Amer) Est GFR (Non-Af Amer) BUN/Creatinine Ratio Glucose Calcium Total Bilirubin AST ALT Alkaline Phosphatase Total Protein Albumin Globulin Albumin/Globulin Ratio TSH HCG, Qual Negative Urine Color Urine Appearance Urine pH Ur Specific [place] Urine Protein Urine Glucose (UA) Urine Ketones Urine Blood Urine Nitrite Urine Bilirubin Urine Urobilinogen Ur Leukocyte Esterase Urine WBC (Auto) Urine RBC (Auto) U Hyaline Cast (Auto) U Epithel Cells (Auto) Urine Bacteria (Auto) Salicylates Urine Opiates Screen Neg Ur Methadone, Qual Neg Acetaminophen Urine Barbiturates Neg Ur Phencyclidine (PCP) Neg U Amphetamin/Meth Scrn Neg MDMA (Ecstasy) Screen Neg U Benzodiazepines Scrn Neg Ur Cocaine Metabolite Neg U Marijuana (THC) Screen Pos H U Marijuana THC Carboxy Drug Screen Comment Ethyl Alcohol mg/dL < 3.0 06/05/19 06/05/19 22:55 22:55 WBC RBC Hgb Hct MCV MCH MCHC RDW Std Deviation RDW Coeff of Conner Plt Count MPV Immature Gran % (Auto) Neut % (Auto) Lymph % (Auto) [place] % (Auto) Eos % (Auto) Baso % (Auto) Immature Gran # (Auto) Neut # (Auto) Lymph # (Auto) [place] # (Auto) Eos # (Auto) Baso # (Auto) Sodium Potassium Chloride Carbon Dioxide Anion Gap BUN Creatinine Est Cr Clr Drug Dosing Est GFR ( Amer) Est GFR (Non-Af Amer) BUN/Creatinine Ratio Glucose Calcium Total Bilirubin AST ALT Alkaline Phosphatase Total Protein Albumin Globulin Albumin/Globulin Ratio TSH HCG, Qual Urine Color Yellow Urine Appearance Clear Urine pH 5.5 Ur Specific [place] 1.012 Urine Protein Negative Urine Glucose (UA) Negative Urine Ketones Trace H Urine Blood Trace H Urine Nitrite Negative Urine Bilirubin Negative Urine Urobilinogen Negative Ur Leukocyte Esterase Trace H Urine WBC (Auto) 1-5 Urine RBC (Auto) 0-4 U Hyaline Cast (Auto) 1-5 U Epithel Cells (Auto) >30 H Urine Bacteria (Auto) 1+ H Salicylates Urine Opiates Screen Ur Methadone, Qual Acetaminophen Urine Barbiturates Ur Phencyclidine (PCP) U Amphetamin/Meth Scrn MDMA (Ecstasy) Screen U Benzodiazepines Scrn Ur Cocaine Metabolite U Marijuana (THC) Screen U Marijuana THC Carboxy Pending Drug Screen Comment Pending Ethyl Alcohol mg/dL Current Inpatient Medications Current Inpatient Medications: Current Inpatient Medications Acetaminophen (Tylenol) 650 mg PO Q4H PRN PRN Reason: Headache or Minor Fever Stop: 07/06/19 16:22 Al Hydrox/Mg Hydrox/Simethicone (Maalox) 30 ml PO Q4H PRN PRN Reason: GI Upset Stop: 07/06/19 16:22 Aripiprazole (Abilify) 10 mg PO QAM JENNIFER Stop: 07/07/19 08:59 Bismuth Subsalicylate (Kaopectate) 15 ml PO PRN PRN PRN Reason: Loose Stool Stop: 07/06/19 16:22 Diphenhydramine HCl (Benadryl) 25 mg IM ONE PRN PRN Reason: Agitation Stop: 07/05/19 20:10 Haloperidol Lactate (Haldol) 5 mg IM NOW PRN PRN Reason: Agitation Stop: 07/05/19 20:10 Hydroxyzine HCl (Vistaril) 50 mg PO HSZ PRN PRN Reason: Insomnia Stop: 07/06/19 16:22 Hydroxyzine HCl (Vistaril) 25 mg PO Q4H PRN PRN Reason: Anxiety Stop: 07/06/19 16:22 Lamotrigine (Lamictal) 25 mg PO QAM JENNIFER Stop: 07/07/19 08:59 Lorazepam (Ativan) 1 mg IM NOW PRN PRN Reason: Agitation Stop: 07/05/19 20:10 Magnesium Hydroxide (Milk Of Magnesia) 30 ml PO DAILY PRN PRN Reason: Constipation Stop: 07/06/19 16:22 Potassium Chloride (Klor-Con M20) 20 meq PO NOW STA Stop: 06/06/19 16:33 Sodium Chloride ([place] Nasal) 1 - 2 sprays NA PRN PRN PRN Reason: Nasal Dryness/Congestion Stop: 07/06/19 16:22
[2019-06-06] MEDS ORDERED: BENZTROPINE MESYLATE 1 MG TAB PO PRN (16:44)
[2019-06-06] MEDS ORDERED: BENZTROPINE MESYLATE 1 MG/ML 2 ML AMP IM PRN (16:45)
[2019-06-06] MEDS ORDERED: NICOTINE POLACRILEX 2 MG GUM MT PRN (17:02)
[2019-06-06] MEDS ORDERED: TRAZODONE HCL 50 MG TAB PO PRN (17:05)
[2019-06-06] MEDS: NICOTINE 14 MG/24 HR PATCH TD SCH (19:29)
[2019-06-07] MEDS: ARIPiprazole 10 MG TAB PO SCH (08:52)
[2019-06-07] MEDS ORDERED: lamoTRIgine 25 MG TAB PO SCH (09:00)
--- NOTE | 2019-06-07 16:06 | Psychiatric Progress Note ---
Date of Service June 07, 2019 Impression / Recommendations Impression 24-year-old woman brought to the emergency room by her mother for paranoid and disorganized behavior due to presumed med non compliance for bipolar disorder. She has denied SI but mother reports that when she recently went to the patient's residence she found evidence of blood on the patient's sheets, and the patient has several superficial abrasions on her forearm. A retrial of Abilify and Lamictal was recommended, only agreeable to Abihayleyfy at this time. (1) Paranoia: 06/06/19 -The patient describes herself as being "paranoid." Although she has difficulty explaining what she means by the use of the word "paranoia," and while she does not reveal any tracie delusional believes, she does say that she has difficulty trusting other people, and often doubts the veracity and intentions of other people. -The patient adds that she feels that her paranoia is brought on by a chronic feeling of anxiety, which she describes as a sense that "something bad is about to happen," even though she is unable to recognize what that might be. -Because the patient has reported that her paranoia has responded favorably to aripiprazole in the past, we will begin the aripiprazole 10 mg daily and titrate as indicated. -The patient is also been referred for individual, group and activity therapies and will be encouraged to attend as a way of developing improved individual coping strategies. 06/07/19--continue Abilify 10 mg today, may require additional Haldol prn. Consider MCCLAIN. (2) Aggressive behavior: 06/06 -The patient's behavior in the emergency room was extremely agitated and largely oan-eu-soxeutd. At one point she required mechanical restraints in order to preserve her safety and the safety of others around her. She also acknowledges that, in the past, she has "defended herself" [physically] when necessary when threatened, and this is within the context of her telling us that she feels "paranoid." However, the patient also tells us that she is having no thoughts currently of causing physical harm to anyone and that she will let us know if she begins to feel unsafe or threatened on the unit. --continue medically necessary private room due to lability. (3) Dehydration: 06/06 -Patient acknowledges that her oral intake has been poor recently. We will encourage fluids and adequate nutrition during the stay. --resolved. (4) Hypokalemia: 06/06 -We will encourage adequate nutrition during the stay. -Potassium chloride supplement 20 mEq has been ordered, and her serum potassium will be rechecked on 06/07/2019. -The patient is not exhibiting any symptoms of hypokalemia at present. resolved (5) Bipolar disorder: 06/06 -Both the patient and her mother report that she has a history of responding favorably to lamotrigine as a mood stabilizer, as well as to aripiprazole, also has a mood stabilizer and is an antipsychotic. The issue, as noted above has been that the patient is often nonadherent with her outpatient medications and other forms of treatment. -Lamotrigine 25 mg daily has been ordered. Material risks and anticipated benefits of lamotrigine have been reviewed with the patient. Specific risks reviewed with the patient included, but were not limited to, risk of Nicolas- Ismael syndrome and a rash. The patient tells us that she has no history of having any difficulty or side effects associated with lamotrigine in the past. The plan will be to titrate lamotrigine at the standard rate. -Aripiprazole 10 mg daily has been ordered and will be titrated as indicated. The patient reports that she has previously taken aripiprazole. Material risks and anticipated benefits of aripiprazole reviewed with the patient, and she indicates that she has had no problem or side effects with aripiprazole in the past. -Patient reports that she has difficulty sleeping, possibly as the result of her bipolar disorder or as a result of her anxiety. In the past, she has responded favorably to trazodone 50 mg at bedtime as needed for sleep, and this medication at this dose has been ordered. Inventory Assets Strengths: Supportive family. Willing to accept treatment. Able to correctly state her given diagnoses. History of favorable response to psychiatric medications and other forms of treatment Needs: Improved adherence with medications. Improved mood regulation. Resolution of paranoia. Avoidance of dyscontrolled, agitated behaviors. Risk Factors Assessment Male: No : No Do You Have Access To A Gun?: No Mental Health Diagnoses: Yes Substance Use Disorders: Yes Previous Attempt: No (The patient tells us that she does not have any history of previous suicide attempts, but she does acknowledge a history of intentional self-injurious behaviors in the form of superficial self cutting.) Previous Psychiatric Hospitalization: Yes Hopelessness: No Smoker: Yes Protective Factors Assessment : No (The patient tells us that she is technically still , but is and in the process of filing for divorce. She lives alone.) Responsible for Young Children: No (The patient reports that she has never had children.) Employed: No (fired from job at [employer] yesterday) Stable Relationships: Yes Supportive Family: Yes Good Rapport with Provider: No Absence of Any Risk Factors Above: No Interval History Chief Complaint "Of course I remember what brought me here but I'll do what I have to but I'm not taking anything but Abilify". Review of Systems Sleep Information Total Hours of Sleep: 8 Meal Information Percent Meal Consumed - Breakfast: 100 Percent Meal Consumed - Lunch: 20 Percent Meal Consumed - Dinner: 0 Nutrition Comment: allowed to rest Subjective Subjective Patient was seen & assessed and interval progress reviewed with nursing and social work. Patient was somewhat sedated from prns in ED yesterday around meeting with MD and family visits. She is now retracking her consent for Lamictal, refused it this am. Family report and her report of med benefit don't align as well as on initial H&P. She was not willing to discuss/own symptoms that brought to ED and unclear how much was memory related vs resistance. Staff later contacted me that seemed increasingly paranoid during family visit, made some comment about staff trying to give her HIV. Physical Exam Psychiatric Orientation: oriented x 3 Apperance: + disheveled and appeared stated age Eye Contact: + poor eye contact Affect: + irritable affect Mood: + depressed mood Thought Process: + concrete thought process Suicidal Thoughts: denies suicidal thoughts Homicidal Thoughts: denies homicidal thoughts Hallucinations: no auditory hallucinations, no visual hallucinations and no tactile hallucinations Estimated Intelligence: average estimated intelligence Insight: + poor insight Judgement: + poor judgement Vital Signs (Past 24 Hours) Last Vital Signs Temp 37.1 C 06/07/19 06:53 Pulse 71 06/07/19 06:53 Resp 16 06/07/19 06:53 BP 119/45 L 06/07/19 06:53 Pulse Ox 99 06/06/19 13:29 Results & Data ([facility]) Laboratory Results Laboratory Results - last 24 hr 06/07/19 07:00 Potassium 3.6 D Current Inpatient Medications Current Inpatient Medications: Current Inpatient Medications Acetaminophen (Tylenol) 650 mg PO Q4H PRN PRN Reason: Headache or Minor Fever Stop: 07/06/19 17:01 Al Hydrox/Mg Hydrox/Simethicone (Maalox) 30 ml PO Q4H PRN PRN Reason: GI Upset Stop: 07/06/19 17:01 Aripiprazole (Abilify) 10 mg PO QAM JENNIFER Stop: 07/07/19 08:59 Last Admin: 06/07/19 08:52 Dose: 10 mg Documented by: Benztropine Mesylate (Cogentin) 2 mg PO BID PRN PRN Reason: EPS Stop: 07/06/19 16:43 Benztropine Mesylate (Cogentin) 2 mg IM BID PRN PRN Reason: dystonic Reaction Stop: 07/06/19 16:44 Bismuth Subsalicylate (Kaopectate) 15 ml PO PRN PRN PRN Reason: Loose Stool Stop: 07/06/19 17:01 Hydroxyzine HCl (Vistaril) 50 mg PO HSZ PRN PRN Reason: Insomnia Stop: 07/06/19 17:01 Hydroxyzine HCl (Vistaril) 25 mg PO Q4H PRN PRN Reason: Anxiety Stop: 07/06/19 17:01 Magnesium Hydroxide (Milk Of Magnesia) 30 ml PO DAILY PRN PRN Reason: Constipation Stop: 07/06/19 17:01 Miscellaneous (Remove Nicoderm Patch) 1 ea N/A DAILY@1759 [facility] Stop: 07/07/19 17:58 Nicotine (Nicoderm Cq) 14 mg TD DAILY@1800 [facility] Stop: 07/06/19 17:59 Last Admin: 06/06/19 19:29 Dose: Not Given Documented by: Nicotine Polacrilex (Nicorette 2mg) 1 piece MT PRN PRN PRN Reason: Nicotine Withdrawal Stop: 07/06/19 17:01 Sodium Chloride ([place] Nasal) 1 - 2 sprays NA PRN PRN PRN Reason: Nasal Dryness/Congestion Stop: 07/06/19 17:01 Trazodone HCl (Desyrel) 50 mg PO HS PRN PRN Reason: Sleep Stop: 07/06/19 17:04 Mental Health & Subst Abuse Tx Therapist Name of Therapist: None Spray Mixer Name of Spray Mixer: None Post Discharge Appointments Primary Care Physician Name Of Family Doctor: DEJAN Pruett Primary Care Provider Appointment Comment: [address], [address], [place] Contact Information Discharge Discharge Address: [address] [place] [address], [facility], [place], [place] [address]
[2019-06-07] MEDS ORDERED: haloperidoL 1 MG TAB PO PRN (16:07)
[2019-06-07] MEDS ORDERED: OLANZAPINE ZYDIS 5 MG ORALLY DIS. TAB PO PRN (16:08)
[2019-06-07] MEDS: NICOTINE 14 MG/24 HR PATCH TD SCH (19:26)
[2019-06-08] MEDS: ARIPiprazole 10 MG TAB PO SCH (08:02)
--- NOTE | 2019-06-08 10:22 | Psychiatric Progress Note ---
Date of Service June 08, 2019 Impression / Recommendations Impression 24-year-old woman brought to the emergency room by her mother for paranoid and disorganized behavior due to presumed med non compliance for bipolar disorder. Initially agreed to retrial of Abilify (hx of maintenna) and Lamcital, now only wanting hs mood stabilizer and starting Seroquel trial 06/07. Patient is disorganized and underreporting, mainly expressing paranoid thoughts to mother during visits. (1) Paranoia: 06/06/19 -The patient describes herself as being "paranoid." Although she has difficulty explaining what she means by the use of the word "paranoia," and w zaira she does not reveal any tracie delusional believes, she does say that she has difficulty trusting other people, and often doubts the veracity and intentions of other people. -The patient adds that she feels that her paranoia is brought on by a chronic feeling of anxiety, which she describes as a sense that "something bad is about to happen," even though she is unable to recognize what that might be. -Because the patient has reported that her paranoia has responded favorably to aripiprazole in the past, we will begin the aripiprazole 10 mg daily and titrate as indicated. -The patient is also been referred for individual, group and activity therapies and will be encouraged to attend as a way of developing improved individual coping strategies. 06/07/19--continue Abilify 10 mg today, may require additional Haldol prn. Consider MCCLAIN. 06/07--d/c Abilify, Seroquel 50 mg po qhs with plan to titrate, Zyprexa prn as ordered in interim. (2) Aggressive behavior: 06/06 -The patient's behavior in the emergency room was extremely agitated and largely [id number]. At one point she required mechanical restraints in order to preserve her safety and the safety of others around her. She also acknowledges that, in the past, she has "defended herself" [physically] when necessary when threatened, and this is within the context of her telling us that she feels "paranoid." However, the patient also tells us that she is having no thoughts currently of causing physical harm to anyone and that she will let us know if she begins to feel unsafe or threatened on the unit. --continue medically necessary private room due to lability. (3) Dehydration: 06/06 -Patient acknowledges that her oral intake has been poor recently. We will encourage fluids and adequate nutrition during the stay. --resolved. (4) Hypokalemia: 06/06 -We will encourage adequate nutrition during the stay. -Potassium chloride supplement 20 mEq has been ordered, and her serum potassium will be rechecked on 06/07/2019. -The patient is not exhibiting any symptoms of hypokalemia at present. resolved (5) Bipolar disorder: 06/06 -Both the patient and her mother report that she has a history of responding favorably to lamotrigine as a mood stabilizer, as well as to aripiprazole, also has a mood stabilizer and is an antipsychotic. The issue, as noted above has been that the patient is often nonadherent with her outpatient medications and other forms of treatment. -Lamotrigine 25 mg daily has been ordered. Material risks and anticipated benefits of lamotrigine have been reviewed with the patient. Specific risks reviewed with the patient included, but were not limited to, risk of Nicolas- Ismael syndrome and a rash. The patient tells us that she has no history of having any difficulty or side effects associated with lamotrigine in the past. The plan will be to titrate lamotrigine at the standard rate. -Aripiprazole 10 mg daily has been ordered and will be titrated as indicated. The patient reports that she has previously taken aripiprazole. Material risks and anticipated benefits of aripiprazole reviewed with the patient, and she indicates that she has had no problem or side effects with aripiprazole in the past. -Patient reports that she has difficulty sleeping, possibly as the result of her bipolar disorder or as a result of her anxiety. In the past, she has responded favorably to trazodone 50 mg at bedtime as needed for sleep, and this medication at this dose has been ordered. Inventory Assets Strengths: Supportive family. Willing to accept treatment. Able to correctly state her given diagnoses. History of favorable response to psychiatric medications and other forms of treatment Needs: Improved adherence with medications. Improved mood regulation. Resolution of paranoia. Avoidance of dyscontrolled, agitated behaviors. Risk Factors Assessment Male: No : No Do You Have Access To A Gun?: No Mental Health Diagnoses: Yes Substance Use Disorders: Yes Previous Attempt: No (The patient tells us that she does not have any history of previous suicide attempts, but she does acknowledge a history of intentional self-injurious behaviors in the form of superficial self cutting.) Previous Psychiatric Hospitalization: Yes Hopelessness: No Smoker: Yes Protective Factors Assessment : No (The patient tells us that she is technically still , but is and in the process of filing for divorce. She lives alone.) Responsible for Young Children: No (The patient reports that she has never had children.) Employed: No (fired from job at [employer] yesterday) Stable Relationships: Yes Supportive Family: Yes Good Rapport with Provider: No Absence of Any Risk Factors Above: No Interval History Chief Complaint "wanna get my meds right". Review of Systems Sleep Information Total Hours of Sleep: 9 Meal Information Percent Meal Consumed - Breakfast: 10 Percent Meal Consumed - Lunch: 20 Percent Meal Consumed - Dinner: 20 Nutrition Comment: allowed to rest Subjective Subjective Patient was seen & assessed and interval progress reviewed with nursing and social work. She has been irritable, seemingly paranoid about staff. Denies that this today even when asked about her comments re: HIV. She appears have racing thoughts and then deny. Again reversing her wishes with regards to medication, initially refusing Abilify. Has used prn Zyprexa zydis effectively soon after 1-on-1 session. Is described as irritable, paranoid, labile per staff but denies all symptoms to MD. States she is willing to take a mood stabilizer at bedtime. 20+ min spent on phone with mother to review progress and treatment plan as very inconsistent reports about med trials, shifting med consent, and limited availability of records though did sign release for [facility] this am. Mother relayed additional info re: course of treatment with [facility] (Dr. Corrales), mother confirmed scheduled with [place] as reportedly declined by multiple clinics given dual diagnosis. Her wish is that patient would agree to a longer term residential dual dx program but admits has no idea quantity or quality of drug use leading up to stay and not currently in any D&A services. Patient denies D&A use today. She does admit to cutting self, denies it was a suicide attempt. Mother expressed concerns that patient cannot process number of prns and would like them limited, specifically trazodone as antidepressant and manic. Reviewed dosing ranges for trazodone for sleep vs depression but also that prns are often given as options for PO vs dissolvable as paranoid patients sometimes more likely to take one over another but agreed that since plan for tonight is Seroquel trial and has Zyprexa prn would d/c Vistaril and trazadone prn orders. Risks/benefits/alternatives reviewed re: Seroquel with patient and mother separately, patient voiced understanding same class of Abilify so similar risk TD/metabolic, being chosen over Zyprexa as lower longer term metabolic risk through Zyprexa remains option as some response to prn. Mother added that best patient did was 1.5 years after return home from [facility] when taking lamictal consistently and once off of that she started using drugs which "complicated picture". Family supports filing for 303 hearing. Mother related a biological sister who has similar symptoms to patient responded well to Seroquel but also had some affective blunting. Physical Exam Psychiatric Orientation: oriented x 3 and + guarded Apperance: + disheveled and appeared stated age Eye Contact: + poor eye contact speech not fully spontaneous Affect: + irritable affect Mood: + depressed mood and + anxious mood Thought Process: + concrete thought process; + thought process not linear or logical Thought Content: no delusions Suicidal Thoughts: denies suicidal thoughts Homicidal Thoughts: denies homicidal thoughts Hallucinations: no auditory hallucinations and no visual hallucinations Estimated Intelligence: average estimated intelligence Insight: + poor insight Judgement: + poor judgement Vital Signs (Past 24 Hours) Last Vital Signs Temp 36.9 C 06/08/19 07:06 Pulse 80 06/08/19 07:06 Resp 16 06/08/19 07:06 BP 122/70 06/08/19 07:06 Pulse Ox 99 06/06/19 13:29 Results & Data ([facility]) Current Inpatient Medications Current Inpatient Medications: Current Inpatient Medications Acetaminophen (Tylenol) 650 mg PO Q4H PRN PRN Reason: Headache or Minor Fever Stop: 07/06/19 17:01 Al Hydrox/Mg Hydrox/Simethicone (Maalox) 30 ml PO Q4H PRN PRN Reason: GI Upset Stop: 07/06/19 17:01 Aripiprazole (Abilify) 10 mg PO QAM [facility] Stop: 07/07/19 08:59 Last Admin: 06/08/19 08:02 Dose: 10 mg Documented by: Benztropine Mesylate (Cogentin) 2 mg PO BID PRN PRN Reason: EPS Stop: 07/06/19 16:43 Benztropine Mesylate (Cogentin) 2 mg IM BID PRN PRN Reason: dystonic Reaction Stop: 07/06/19 16:44 Benztropine Mesylate (Cogentin) 0.5 mg PO Q4 PRN PRN Reason: Muscle Spasm Stop: 07/07/19 16:06 Bismuth Subsalicylate (Kaopectate) 15 ml PO PRN PRN PRN Reason: Loose Stool Stop: 07/06/19 17:01 Haloperidol (Haldol) 2 mg PO Q4 PRN PRN Reason: Anxiety/Agitation Stop: 07/07/19 16:06 Hydroxyzine HCl (Vistaril) 50 mg PO HSZ PRN PRN Reason: Insomnia Stop: 07/06/19 17:01 Hydroxyzine HCl (Vistaril) 25 mg PO Q4H PRN PRN Reason: Anxiety Stop: 07/06/19 17:01 Magnesium Hydroxide (Milk Of Magnesia) 30 ml PO DAILY PRN PRN Reason: Constipation Stop: 07/06/19 17:01 Miscellaneous (Remove Nicoderm Patch) 1 ea N/A DAILY@1759 [facility] Stop: 07/07/19 17:58 Last Admin: 06/07/19 16:57 Dose: Not Given Documented by: Nicotine (Nicoderm Cq) 14 mg TD DAILY@1800 [facility] Stop: 07/06/19 17:59 Last Admin: 06/07/19 19:26 Dose: Not Given Documented by: Nicotine Polacrilex (Nicorette 2mg) 1 piece MT PRN PRN PRN Reason: Nicotine Withdrawal Stop: 07/06/19 17:01 Olanzapine (Zyprexa Zydis Od) 5 mg PO BID PRN PRN Reason: Agitation Stop: 07/07/19 20:59 Sodium Chloride ([place] Nasal) 1 - 2 sprays NA PRN PRN PRN Reason: Nasal Dryness/Congestion Stop: 07/06/19 17:01 Trazodone HCl (Desyrel) 50 mg PO HS PRN PRN Reason: Sleep Stop: 07/06/19 17:04 Last Admin: 06/07/19 19:12 Dose: 50 mg Documented by: Mental Health & Subst Abuse Tx Therapist Name of Therapist: None Retail Equipment Associate Name of Retail Equipment Associate: None Post Discharge Appointments Primary Care Physician Name Of Family Doctor: DEJAN Pruett Primary Care Provider Appointment Comment: [address] [facility], [address], [place] Contact Information Discharge Discharge Address: [address] [place] [address], [facility], [place] [address]
[2019-06-08] MEDS: NICOTINE 14 MG/24 HR PATCH TD SCH (18:27)
[2019-06-08] MEDS ORDERED: QUETIAPINE FUMARATE 25 MG TABLET PO SCH (22:00)
[2019-06-08 23:40] LABS: Marijuana Quant, GCMS Urine 448 ng/mL (<5)
[2019-06-09] MEDS ORDERED: OLANZapine 10 MG/2.1 ML SDV IM PRN (12:46)
--- NOTE | 2019-06-09 13:02 | Psychiatric Progress Note ---
Date of Service June 09, 2019 Impression / Recommendations Impression 24-year-old woman brought to the emergency room by her mother for paranoid and disorganized behavior due to presumed med non compliance for bipolar disorder. Initially agreed to retrial of Abilify (hx of maintenna) and Lamcital, now only wanting hs mood stabilizer and started Seroquel trial 06/07. Patient appears worse 06/08 likely due to amount IM's got in ED wearing off and her resistant to consistently engage in any medication plan for her current stay. 303 hearing 06/09. (1) Paranoia: 06/06/19 -The patient describes herself as being "paranoid." Although she has difficu lty explaining what she means by the use of the word "paranoia," and while she does not reveal any tracie delusional believes, she does say that she has difficulty trusting other people, and often doubts the veracity and intentions of other people. -The patient adds that she feels that her paranoia is brought on by a chronic feeling of anxiety, which she describes as a sense that "something bad is about to happen," even though she is unable to recognize what that might be. -Because the patient has reported that her paranoia has responded favorably to aripiprazole in the past, we will begin the aripiprazole 10 mg daily and titrate as indicated. -The patient is also been referred for individual, group and activity therapies and will be encouraged to attend as a way of developing improved i ndividual coping strategies. 06/07/19--continue Abilify 10 mg today, may require additional Haldol prn. Consider MCCLAIN. 06/07--d/c Abilify, Seroquel 50 mg po qhs with plan to titrate, Zyprexa prn as ordered in interim. 06/08--Seroquel to 100 mg this hs, currently states she will refuse, Zyprexa dissolvable PO prn as ordered. Given level of agitation this am feel elopement precautions are warranted and will order Zyprexa 10 mg IM in case of emergency restraint and ultimately this may need to be given in place of PO meds if starts refusing consistently. Given presentation to ED and hospital course thus far, it is my medical opinion that she will fail to show improvement without forced antipsychotic medication for mood stabilization. She is unable to care for basic needs and has exhibited significant level of impulsivity that or serious physical disability would likely occur within 30 days without these interventions. Case discussed with insulation power unit tender Dr. Murray who will do second opinion as needed. (2) Aggressive behavior: 06/06 -The patient's behavior in the emergency room was extremely agitated and largely [id number]. At one point she required mechanical restraints in order to preserve her safety and the safety of others around her. She also acknowledges that, in the past, she has "defended herself" [physically] when necessary when threatened, and this is within the context of her telling us that she feels "paranoid." However, the patient also tells us that she is having no thoughts currently of causing physical harm to anyone and that she will let us know if she begins to feel unsafe or threatened on the unit. --continue medically necessary private room due to lability. 06/08--elopement precautions and MNPR (3) Dehydration: 06/06 -Patient acknowledges that her oral intake has been poor recently. We will encourage fluids and adequate nutrition during the stay. --resolved. (4) Hypokalemia: 06/06 -We will encourage adequate nutrition during the stay. -Potassium chloride supplement 20 mEq has been ordered, and her serum pot assium will be rechecked on 06/07/2019. -The patient is not exhibiting any symptoms of hypokalemia at present. resolved (5) Bipolar disorder: 06/06 -Both the patient and her mother report that she has a history of responding favorably to lamotrigine as a mood stabilizer, as well as to aripiprazole, also has a mood stabilizer and is an antipsychotic. The issue, as noted above has been that the patient is often nonadherent with her outpatient medications and other forms of treatment. -Lamotrigine 25 mg daily has been ordered. Material risks and anticipated benefits of lamotrigine have been reviewed with the patient. Specific risks reviewed with the patient included, but were not limited to, risk of Nicolas- Ismael syndrome and a rash. The patient tells us that she has no history of having any difficulty or side effects associated with lamotrigine in the past. The plan will be to titrate lamotrigine at the standard rate. -Aripiprazole 10 mg daily has been ordered and will be titrated as indicated. The patient reports that she has previously taken aripiprazole. Material risks and anticipated benefits of aripiprazole reviewed with the patient, and she indicates that she has had no problem or side effects with aripiprazole in the past. -Patient reports that she has difficulty sleeping, possibly as the result of her bipolar disorder or as a result of her anxiety. In the past, she has responded favorably to trazodone 50 mg at bedtime as needed for sleep, and this medication at this dose has been ordered. Inventory Assets Strengths: Supportive family. Willing to accept treatment. Able to correctly state her given diagnoses. History of favorable response to psychiatric medications and other forms of treatment Needs: Improved adherence with medications. Improved mood regulation. Resolution of paranoia. Avoidance of dyscontrolled, agitated behaviors. Risk Factors Assessment Male: No : No Do You Have Access To A Gun?: No Mental Health Diagnoses: Yes Substance Use Disorders: Yes Previous Attempt: No (The patient tells us that she does not have any history of previous suicide attempts, but she does acknowledge a history of intentional self-injurious behaviors in the form of superficial self cutting.) Previous Psychiatric Hospitalization: Yes Hopelessness: No Smoker: Yes Protective Factors Assessment : No (The patient tells us that she is technically still , but is and in the process of filing for divorce. She lives alone.) Responsible for Young Children: No (The patient reports that she has never had children.) Employed: No (fired from job at [employer] yesterday) Stable Relationships: Yes Supportive Family: Yes Good Rapport with Provider: No Absence of Any Risk Factors Above: No Interval History Chief Complaint "I signed those papers, what you going to do about that light Android". Review of Systems Sleep Information Total Hours of Sleep: 7 Meal Information Percent Meal Consumed - Breakfast: 80 Percent Meal Consumed - Lunch: 70 Percent Meal Consumed - Dinner: 50 Nutrition Comment: allowed to rest Subjective Subjective Patient was seen & assessed and interval progress reviewed with treatment team. Patient denied that Zyprexa prns are helpful but staff note significantly less restless, less intrussive after. Did accept Seroquel as ordered last pm but today seems more agitated, mother somewhat predicted given history of honeymooning. We also needed to discuss plan for ongoing care as currently on 302. She was not able to engage is discussion around commitments as disorganized, tangential, paranoid with regards to prescribers and nursing. "I'm here for not taking meds but not going to take meds from you guys, only my mom." when tried to reality focus she just said "exactly" and became distracted by the light. Refused labs this am. Refusing to discuss Seroquel dosing range for treatment of Bipolar disorder. Got up and lunged forward during interview as if to leave then settled, then repeatedly pacing halls and knocking on door to be seen and walking off. Did not tolerate reading of rights due to short attention span due to christin/psychosis. Physical Exam Psychiatric Orientation: alert; + uncooperative Apperance: + disheveled Eye Contact: + poor eye contact Motor Behavior: + psychomotor agitation Speech: + pressured speech Affect: + labile affect Mood: + irritable mood Thought Process: + tangential thought process Thought Content: + paranoid Suicidal Thoughts: denies suicidal thoughts Homicidal Thoughts: denies homicidal thoughts Hallucinations: no auditory hallucinations and no visual hallucinations Cognition: + attention not intact Estimated Intelligence: + below average estimated intelligence Insight: + severely impaired insight Judgement: + severely impaired judgement Vital Signs (Past 24 Hours) Last Vital Signs Temp 36.8 C 06/09/19 06:00 Pulse 111 H 06/09/19 06:00 Resp 14 06/09/19 06:00 BP 136/69 06/09/19 06:00 Pulse Ox 99 06/06/19 13:29 Results & Data ([facility]) Laboratory Results Laboratory Results - last 24 hr 06/05/19 22:55 U Marijuana THC Carboxy 448 H Drug Screen Comment SEE NOTE Current Inpatient Medications Current Inpatient Medications: Current Inpatient Medications Acetaminophen (Tylenol) 650 mg PO Q4H PRN PRN Reason: Headache or Minor Fever Stop: 07/06/19 17:01 Al Hydrox/Mg Hydrox/Simethicone (Maalox) 30 ml PO Q4H PRN PRN Reason: GI Upset Stop: 07/06/19 17:01 Benztropine Mesylate (Cogentin) 0.5 mg PO Q4 PRN PRN Reason: Muscle Spasm Stop: 07/07/19 16:06 Bismuth Subsalicylate (Kaopectate) 15 ml PO PRN PRN PRN Reason: Loose Stool Stop: 07/06/19 17:01 Magnesium Hydroxide (Milk Of Magnesia) 30 ml PO DAILY PRN PRN Reason: Constipation Stop: 07/06/19 17:01 Miscellaneous (Remove Nicoderm Patch) 1 ea N/A DAILY@1759 [facility] Stop: 07/07/19 17:58 Last Admin: 06/08/19 17:05 Dose: Not Given Documented by: Nicotine (Nicoderm Cq) 14 mg TD DAILY@1800 JENNIFER Stop: 07/06/19 17:59 Last Admin: 06/08/19 18:27 Dose: Not Given Documented by: Nicotine Polacrilex (Nicorette 2mg) 1 piece MT PRN PRN PRN Reason: Nicotine Withdrawal Stop: 07/06/19 17:01 Olanzapine (Zyprexa Zydis Od) 5 mg PO Q6 PRN PRN Reason: Anxiety/Agitation Stop: 07/07/19 16:07 Quetiapine Fumarate (Seroquel) 100 mg PO HS [facility] Stop: 07/09/19 21:59 Sodium Chloride ([place] Nasal) 1 - 2 sprays NA PRN PRN PRN Reason: Nasal Dryness/Congestion Stop: 07/06/19 17:01 Mental Health & Subst Abuse Tx Therapist Name of Therapist: None Planning Coordinator Name of Planning Coordinator: None Post Discharge Appointments Primary Care Physician Name Of Family Doctor: DEJAN Pruett Primary Care Provider Appointment Comment: [address] [facility], [address], [place] Contact Information Discharge Discharge Address: [address] [place] [address], [facility], [place] [address]
[2019-06-09] MEDS: NICOTINE 14 MG/24 HR PATCH TD SCH (18:35)
[2019-06-09] MEDS ORDERED: QUETIAPINE FUMARATE 100 MG TABLET PO SCH (22:00)
[2019-06-10 05:53] LABS: Glucose Fasting 91 mg/dl (70-99)
[2019-06-10 05:59] LABS: Chol HDL Ratio 2; Cholesterol 144 mg/dl (0-200); HDL Cholesterol 67 mg/dl; LDL Cholesterol Calculated 63 mg/dl; Triglycerides 72 mg/dl (0-150); VLDL Cholesterol 14 mg/dl
--- NOTE | 2019-06-10 07:46 | Psychiatric Progress Note ---
Date of Service June 10, 2019 Impression / Recommendations Impression 24-year-old single female with a history of bipolar disorder, borderline personality disorder, substance abuse (methamphetamine and cannabis), treatment noncompliance, and remote history of ODD, IED, and ADHD who was brought to the emergency room by her mother for paranoid and disorganized behavior and self injury, having cut both wrists on the day of presentation. She eloped from the ER, was running in the parking lot naked, and was so agitated that she required restraints and IM medications. She is disorganized, paranoid, and hallucinating, has been extremely restless and unable to tolerate groups or assessments, and although she initially agreed to retrial of Abilify (hx of Maintena) and Lamictal, she only accepted 2 doses before refusing to continue, then agreed to a Seroquel trial 06/07, but is still refusing medication on a regular basis. She had a 303 hearing today which was granted, and we will initiate medications over objection due to the severity of her symptoms and inability to maintain behavioral control or participate in treatment. (1) Psychosis: 06/06/19 -The patient describes herself as being "paranoid." Although she has difficulty explaining what she means by the use of the word "paranoia," and while she does not reveal any tracie delusional believes, she does say that she has difficulty trusting other people, and often doubts the veracity and intentions of other people. -The patient adds that she feels that her paranoia is brought on by a chronic feeling of anxiety, which she describes as a sense that "something bad is about to happen," even though she is unable to recognize what that might be. -Because the patient has reported that her paranoia has responded favorably to aripiprazole in the past, we will begin the aripiprazole 10 mg daily and titrate as indicated. -The patient is also been referred for individual, group and activity therapies and will be encouraged to attend as a way of developing improved individual coping strategies. 06/07/19--continue Abilify 10 mg today, may require additional Haldol prn. Consider MCCLAIN. 06/07--d/c Abilify, Seroquel 50 mg po qhs with plan to titrate, Zyprexa prn as ordered in interim. 06/08--Seroquel to 100 mg this hs, currently states she will refuse, Zyprexa dissolvable PO prn as ordered. Given level of agitation this am feel elopement precautions are warranted and will order Zyprexa 10 mg IM in case of emergency restraint and ultimately this may need to be given in place of PO meds if starts refusing consistently. Given presentation to ED and hospital course thus far, it is my medical opinion that she will fail to show improvement without forced antipsychotic medication for mood stabilization. She is unable to care for basic needs and has exhibited significant level of impulsivity that or serious physical disability would likely occur within 30 days without these interventions. Case discussed with air conditioning unit assembler Dr. Murray who will do second opinion as needed. 06/09 -patient refusing all antipsychotic medication yesterday, although eventually accepted a lower dose of quetiapine (50 mg). Unfortunately, this is not an antipsychotic dose and is insufficient to manage her psychotic symptoms, and she is not willing to take oral medications regularly. I agree with medications over objection, as she has a history of bipolar disorder with mood and psychotic symptoms requiring mood stabilizing and antipsychotic medication, and her symptoms are unlikely to improve without medication. Ongoing symptoms place her at risk of harm to both herself and others due to her psychosis, self injury, inability to obtain adequate nutrition and hydration without the care and assistance of others, and agitation/erratic behavior. She did demonstrate some improvement after receiving haloperidol in the ER. Discontinue quetiapine, as she is not allowing dose escalation to antipsychotic doses that would adequately treat symptoms. Start olanzapine 5 mg twice daily with IM backup for refusal, as she has received this medication during this hospitalization and tolerated it. -Reviewed fasting labs for monitoring on an atypical antipsychotic: Cholesterol levels and fasting glucose within normal limits. (2) Aggressive behavior: 06/06 -The patient's behavior in the emergency room was extremely agitated and largely [id number]. At one point she required mechanical restraints in order to preserve her safety and the safety of others around her. She also acknowledges that, in the past, she has "defended herself" [physically] when necessary when threatened, and this is within the context of her telling us that she feels "paranoid." However, the patient also tells us that she is having no thoughts currently of causing physical harm to anyone and that she will let us know if she begins to feel unsafe or threatened on the unit. --continue medically necessary private room due to lability. 06/08--elopement precautions and MNPR 06/09--continue private room and elopement precautions. Start medications over objection as above. Excuse from groups until she is in better behavioral control. (3) Bipolar disorder: 06/06 -Both the patient and her mother report that she has a history of responding favorably to lamotrigine as a mood stabilizer, as well as to aripiprazole, also has a mood stabilizer and is an antipsychotic. The issue, as noted above has been that the patient is often nonadherent with her outpatient medications and other forms of treatment. -Lamotrigine 25 mg daily has been ordered. Material risks and anticipated benefits of lamotrigine have been reviewed with the patient. Specific risks reviewed with the patient included, but were not limited to, risk of Nicolas- Ismael syndrome and a rash. The patient tells us that she has no history of having any difficulty or side effects associated with lamotrigine in the past. The plan will be to titrate lamotrigine at the standard rate. -Aripiprazole 10 mg daily has been ordered and will be titrated as indicated. The patient reports that she has previously taken aripiprazole. Material risks and anticipated benefits of aripiprazole reviewed with the patient, and she indicates that she has had no problem or side effects with aripiprazole in the past. -Patient reports that she has difficulty sleeping, possibly as the result of her bipolar disorder or as a result of her anxiety. In the past, she has responded favorably to trazodone 50 mg at bedtime as needed for sleep, and this medication at this dose has been ordered. 06/09 -Patient has been unwilling to sign releases to get previous records. -Family meeting once she is in better behavioral control. -She will need referrals for outpatient treatment. (4) Dehydration: 06/06-Patient acknowledges that her oral intake has been poor recently. We will encourage fluids and adequate nutrition during the stay. --resolved. (5) Hypokalemia: 06/06 -We will encourage adequate nutrition during the stay. -Potassium chloride supplement 20 mEq has been ordered, and her serum potassium will be rechecked on 06/07/2019. -The patient is not exhibiting any symptoms of hypokalemia at present. - resolved (6) Cannabis abuse: 06/09 -as patient psychosis improves, provide psychoeducation regarding the risks of hallucinogen use, including destabilization of bipolar illness and worsening of psychotic symptoms. -Avoid prescription of controlled substances given the high risk of abuse/misuse/negative outcomes. -Refer for outpatient dual diagnosis treatment. (7) Methamphetamine abuse: 06/09 -as above, continue to provide education and review recommendations for abstinence from controlled substances and dual diagnosis treatment after discharge from the hospital. Inventory Assets Strengths: Supportive family. Willing to accept treatment. Able to correctly state her given diagnoses. History of favorable response to psychiatric medications and other forms of treatment Needs: Improved adherence with medications. Improved mood regulation. Resolution of paranoia. Avoidance of dyscontrolled, agitated behaviors. Risk Factors Assessment Male: No : No Do You Have Access To A Gun?: No Mental Health Diagnoses: Yes Substance Use Disorders: Yes Previous Attempt: No (The patient tells us that she does not have any history of previous suicide attempts, but she does acknowledge a history of intentional self-injurious behaviors in the form of cutting, and cut both wrists prior to presentation.) Previous Psychiatric Hospitalization: Yes Hopelessness: No Smoker: Yes Protective Factors Assessment : No (The patient tells us that she is technically still , but is and in the process of filing for divorce. She lives alone.) Responsible for Young Children: No (The patient reports that she has never had children.) Employed: No (fired from job at [employer] yesterday) Stable Relationships: Yes Supportive Family: Yes Good Rapport with Provider: No Absence of Any Risk Factors Above: No Interval History Identifying Information GARY STALEYMACARIO is a 24-year-old F who currently lives in alone in [place]. She reports that she has a history of bipolar disorder, ADHD, and OCD. There is also history of stimulant abuse. She was admitted on 06/06/19 12:59 on a 302 involuntary commitment because of agitated, dyscontrolled, and physically aggressive behavior coupled with reports of severe depression and paranoia. Chief Complaint " I got my period". Review of Systems Notes Patient unable to participate in review of systems due to disorganized thinking and behavior. Sleep Information Total Hours of Sleep: 7 Meal Information Percent Meal Consumed - Breakfast: 80 Percent Meal Consumed - Lunch: 25 Percent Meal Consumed - Dinner: 100 Nutrition Comment: allowed to rest Subjective Subjective Patient was seen & assessed and interval progress reviewed with nursing and social work. Case also reviewed with Dr. Quiroz who has been on service the past 3 days, and participated in treatment team yesterday. Staff report the patient has been psychotic, paranoid, restless, and confused. She is repeatedly demanding to leave, and is on elopement precautions as she has been watching the unit doors. She was unable to tolerate assessment or discussion with staff, pacing and going in and out of the office, reported feeling paranoid and that she didn't trust them, and was unable to answer basic questions. She refused antipsychotic medication yesterday, despite encouragement from staff. Later in the evening, she agreed to take a lower dose of quetiapine (50 mg rather than 100 mg dose that was ordered), but appeared paranoid about the medication. She was only able to attend brief groups, and was inappropriate at times, confrontational and aggressive with staff and peers. She was focused on her menstrual period and whether she will ever be able to become , and accused appear of being a lesbian because the [place] offered her a feminine pad. Her speech was disorganized, taking her sheets off the bed and using them to prop her door open, then putting them back on the bed, and was difficult to follow in conversation. She was intrusive, interrupted staff when they were reviewing another patient's treatment plan, and grabbed the treatment plan and ripped it. She did not appear to understand the involuntary commitment when informed of the 303 hearing, insisting that she signed in voluntarily. She accused staff of taking her period from her, and came out of her room wearing only a bra. She did tolerate a visit from her mother last evening. On review of records, she was initially started on aripiprazole, as she reported that had previously been effective, but symptoms did not respond, so she was switched to quetiapine, but refused to increase the dose and was only willing to take 50 mg. She has olanzapine as needed ordered, but has only accepted 1 dose despite it being recommended multiple times. On my assessment today, she was observed walking laps rapidly around the unit, at times skipping and jumping, frequently disrobing (taking her shirt off, wearing a bra only) despite staff intervention and redirection to remain clothed. During the assessment, she lay down on her bed, but was restless, frequently sitting up, taking items of clothing off, shifting around on the bed, and then putting clothing back on. She was generally sarcastic, irritable, and poorly cooperative with the assessment, often refusing to answer questions. She initially stated she did not know why she was hospitalized, "apparently everybody thinks I'm crazy." She later says she came in to the hospital because she cut both of her wrists. She would not discuss her state of mind at the time of her reasons for doing so, stating "just life." When asked about reports from the ER that she said she had been fired from her job that day, she says "maroon, it's a color, I just keep hearing things, so I said it, I fixed it. I like your boots." She frequently contradicts herself, for example reports hearing a voice saying "maroon," but later denies hearing voices other than mine. She denies that she has struggled with paranoia, but cannot reconcile this report with her own earlier reports that she is paranoid. She agrees that she has a mental illness, stating she has "a bunch of things, but I was fine, on medicine." She then admits that she has not been in treatment for "a year or 2, maybe 3," and has not been on medication during that time period. She admits to intentionally cutting both wrists the day of presentation, and denies suicidality now, but cannot state what has changed or how she would cope with urges to harm herself if she were discharged. She states she does not need to be in the hospital, and will find her own outpatient care because "I don't like that social worker palliative care." She refuses to say what drugs she had been using, stating "I was on something else, but I'm not gonna to say it, it is in my chart." When advised that her chart lists methamphetamine and marijuana as drugs she had recently use, she says "yeah, that" and indicates she used both of them the day of presentation. She will not answer questions about how often she was using meth, or and what quantity. She does not appear to understand the recommended treatment, is argumentative about the medications when attempted to review what medication she has tried while here, and insist that she signed herself in voluntarily and can leave. Reviewed that she has a 303 commitment hearing today, and that we are recommending antipsychotic mood stabilizing medication. She is unable to indicate a choice for medication, initially stating she wants to take Abilify, but when advised that that was her choice on admission, and then she she refused to continue taking it so it was changed, she states she does not want to take Abilify. She says that if she were discharged she would "go home and look for a job, eventually I'll pay for it." She is unable to give any kind of safety plan or plan to get outpatient treatment. She initially stated she wasn't going to attend her 303 hearing, but wanted to stand outside the room and watch the proceedings through the window. Shortly after the hearing started, she came into the room, was disruptive and disorganized, picking up items, moving them around, propping the door open with a puzzle, and then opening the door widely. Her insurance attorney advised her to shut the door to maintain privacy, but she refused, stating she was not worried about it. She then proceeded to hover around me while testifying, with coming very close and attempting to read things over my shoulder on the computer. She interrupted testimony at times, interjecting and making inappropriate statements, at one point repeated her full name loudly multiple times saying "that's my name!" She then abruptly left the room partway through the proceedings, but later returned. Physical Exam Psychiatric Orientation: alert, oriented to person and oriented to place; + uncooperative Apperance: + inappropriately dressed Well-nourished well-developed female appearing her stated age. Dressed all in black, with stretch pants, bra, and tank top. Repeatedly takes clothes off and then puts them back on during the assessment. Eye Contact: + poor eye contact Motor Behavior: + psychomotor agitation Extremely restless, getting up and down, taking clothes on and off, shifting her position frequently on the bed. Irritable, sarcastic tone. Affect: + labile affect Vacillates from expansive to irritable "I am fine." Thought Process: + tangential thought process and + incoherent thought process Thought Content: + paranoid and + ideas of reference Disorganized, frequently contradicts herself. Suicidal Thoughts: denies suicidal thoughts But admits to cutting both wrists intentionally prior to admission. Homicidal Thoughts: denies homicidal thoughts Hallucinations: + auditory hallucinations (Actively responding to auditory hallucinations of voices during the assessment.) Cognition: + recent memory not intact and + attention not intact Insight: + severely impaired insight Judgement: + severely impaired judgement Vital Signs (Past 24 Hours) Last Vital Signs Temp 36.8 C 06/10/19 06:55 Pulse 144 H 06/10/19 06:55 Resp 16 06/10/19 06:55 BP 134/84 06/10/19 06:55 Pulse Ox 99 06/06/19 13:29 Results & Data ([facility]) Laboratory Results Laboratory Results - last 24 hr 06/10/19 05:23 Fasting Glucose 91 Triglycerides 72 Cholesterol 144 LDL Cholesterol, Calc 63 VLDL Cholesterol, Calc 14 HDL Cholesterol 67 Cholesterol/HDL Ratio 2 Current Inpatient Medications Current Inpatient Medications: Current Inpatient Medications Acetaminophen (Tylenol) 650 mg PO Q4H PRN PRN Reason: Headache or Minor Fever Stop: 07/06/19 17:01 Al Hydrox/Mg Hydrox/Simethicone (Maalox) 30 ml PO Q4H PRN PRN Reason: GI Upset Stop: 07/06/19 17:01 Benztropine Mesylate (Cogentin) 0.5 mg PO Q4 PRN PRN Reason: Muscle Spasm Stop: 07/07/19 16:06 Bismuth Subsalicylate (Kaopectate) 15 ml PO PRN PRN PRN Reason: Loose Stool Stop: 07/06/19 17:01 Magnesium Hydroxide (Milk Of Magnesia) 30 ml PO DAILY PRN PRN Reason: Constipation Stop: 07/06/19 17:01 Miscellaneous (Remove Nicoderm Patch) 1 ea N/A DAILY@1759 [facility] Stop: 07/07/19 17:58 Last Admin: 06/09/19 18:35 Dose: Not Given Documented by: Nicotine (Nicoderm Cq) 14 mg TD DAILY@1800 JENNIFER Stop: 07/06/19 17:59 Last Admin: 06/09/19 18:35 Dose: Not Given Documented by: Nicotine Polacrilex (Nicorette 2mg) 1 piece MT PRN PRN PRN Reason: Nicotine Withdrawal Stop: 07/06/19 17:01 Olanzapine (Zyprexa Zydis Od) 5 mg PO Q6 PRN PRN Reason: Anxiety/Agitation Stop: 07/07/19 16:07 Olanzapine (Zyprexa) 10 mg IM Q6 PRN PRN Reason: Agitation Stop: 07/09/19 17:59 Quetiapine Fumarate (Seroquel) 100 mg PO HS JENNIFER Stop: 07/09/19 21:59 Last Admin: 06/09/19 19:45 Dose: 50 mg Documented by: Sodium Chloride (Spalding Nasal) 1 - 2 sprays NA PRN PRN PRN Reason: Nasal Dryness/Congestion Stop: 07/06/19 17:01 Mental Health & Subst Abuse Tx Therapist Name of Therapist: None Pharmacy Clinical Specialist Name of Pharmacy Clinical Specialist: None Post Discharge Appointments Primary Care Physician Name Of Family Doctor: DEJAN Pruett Primary Care Provider Appointment Comment: [id number] [facility], [address], [place] Contact Information Discharge Discharge [address]: [address] [place] [address], [address] [place] [address] (1) Psychosis Psychosis type: unspecified psychosis type Qualified Code(s): F29 - Unspecified psychosis not due to a substance or known physiological condition
[2019-06-10] MEDS ORDERED: OLANZapine 10 MG/2.1 ML SDV IM PRN (12:30)
[2019-06-10] MEDS: QUETIAPINE FUMARATE 25 MG TABLET PO PRN (12:44)
[2019-06-10] MEDS: OLANZAPINE ZYDIS 5 MG ORALLY DIS. TAB PO SCH ×2 (13:56→20:09)
[2019-06-10] MEDS: NICOTINE 14 MG/24 HR PATCH TD SCH (20:08)
[2019-06-10] MEDS: BENZTROPINE MESYLATE 0.5 MG TAB PO PRN (20:10)
[2019-06-10] MEDS: ACETAMINOPHEN 325 MG TAB PO PRN (21:04)
[2019-06-11] MEDS: OLANZAPINE ZYDIS 5 MG ORALLY DIS. TAB PO SCH (08:05)
[2019-06-11] MEDS: ACETAMINOPHEN 325 MG TAB PO PRN (08:05)
[2019-06-11] MEDS: BENZTROPINE MESYLATE 0.5 MG TAB PO PRN ×2 (10:40→21:26)
--- NOTE | 2019-06-11 13:28 | Psychiatric Progress Note ---
Date of Service June 11, 2019 Impression / Recommendations Impression 24-year-old single female with a history of bipolar disorder, borderline personality disorder, substance abuse (methamphetamine and cannabis), treatment noncompliance, and remote history of ODD, IED, and ADHD who was brought to the emergency room by her mother for paranoid and disorganized behavior and self injury, having cut both wrists on the day of presentation. She eloped from the ER, was running in the parking lot naked, and was so agitated that she required restraints and IM medications. She is disorganized, paranoid, and hallucinating, has been extremely restless and unable to tolerate groups or assessments, and although she initially agreed to retrial of Abilify (hx of Maintena) and Lamictal, she only accepted 2 doses before refusing to continue, then agreed to a Seroquel trial 06/07, but refused titration of the medication to appropriate doses. 303 was granted on 06/10/2019 and patient was started on olanzapine 5mg BID. 2-physician opinions for medications over objection were rendered, due to the severity of her symptoms and inability to maintain behavioral control or participate in treatment. Since her hearing, patient has been agreeable with taking her prescribed olanzapine by mouth. Pt was agreeable with titrating olanzapine over the course of her admission. (1) Psychosis: 06/06/19 -The patient describes herself as being "paranoid." Although she has difficulty explaining what she means by the use of the word "paranoia," and while she does not reveal any tracie delusional believes, she does say that she has difficulty trusting other people, and often doubts the veracity and intentions of other people. -The patient adds that she feels that her paranoia is brought on by a chronic feeling of anxiety, which she describes as a sense that "something bad is about to happen," even though she is unable to recognize what that might be. -Because the patient has reported that her paranoia has responded favorably to aripiprazole in the past, we will begin the aripiprazole 10 mg daily and titrate as indicated. -The patient is also been referred for individual, group and activity therapies and will be encouraged to attend as a way of developing improved individual coping strategies. 06/07/19--continue Abilify 10 mg today, may require additional Haldol prn. Consider MCCLAIN. 06/07--d/c Orion, Seroquel 50 mg po qhs with plan to titrate, Zyprexa prn as ordered in interim. 06/08--Seroquel to 100 mg this hs, currently states she will refuse, Zyprexa dissolvable PO prn as ordered. Given level of agitation this am feel elopement precautions are warranted and will order Zyprexa 10 mg IM in case of emergency restraint and ultimately this may need to be given in place of PO meds if starts refusing consistently. Given presentation to ED and hospital course thus far, it is my medical opinion that she will fail to show improvement without forced antipsychotic medication for mood stabilization. She is unable to care for basic needs and has exhibited significant level of impulsivity that or serious physical disability would likely occur within 30 days without these interventions. Case discussed with ammunition assembly laborer Dr. Murray who will do second opinion as needed. 3 -patient refusing all antipsychotic medication yesterday, although eventually accepted a lower dose of quetiapine (50 mg). Unfortunately, this is not an antipsychotic dose and is insufficient to manage her psychotic symptoms, and she is not willing to take oral medications regularly. I agree with medications over objection, as she has a history of bipolar disorder with mood and psychotic symptoms requiring mood stabilizing and antipsychotic medication, and her symptoms are unlikely to improve without medication. Ongoing symptoms place her at risk of harm to both herself and others due to her psychosis, self injury, inability to obtain adequate nutrition and hydration without the care and assistance of others, and agitation/erratic behavior. She did demonstrate some improvement after receiving haloperidol in the ER. Discontinue quetiapine, as she is not allowing dose escalation to antipsychotic doses that would adequately treat symptoms. Start olanzapine 5 mg twice daily with IM backup for refusal, as she has received this medication during this hospitalization and tolerated it. -Reviewed fasting labs for monitoring on an atypical antipsychotic: Cholesterol levels and fasting glucose within normal limits. 3/4 - Pt has been compliant with scheduled oral olanzapine as offered. She is interested in further titration and will be ordered 5mg qAM and 10mg qHS starting this evening. She does appear to be responding rather well to the medication. - 2-physician opinions have been rendered for medications over objection should this be required - Involve parents in a family meeting when patient is appropriate - pt verbalizing request to wait a few more days for this as she does not yet feel ready - Refer for outpatient psychiatric treatment (2) Aggressive behavior: 06/06 -The patient's behavior in the emergency room was extremely agitated and largely [id number]. At one point she required mechanical restraints in order to preserve her safety and the safety of others around her. She also acknowledges that, in the past, she has "defended herself" [physically] when necessary when threatened, and this is within the context of her telling us that she feels "paranoid." However, the patient also tells us that she is having no thoughts currently of causing physical harm to anyone and that she will let us know if she begins to feel unsafe or threatened on the unit. --continue medically necessary private room due to lability. 06/08--elopement precautions and MNPR 06/09--continue private room and elopement precautions. Start medications over objection as above. Excuse from groups until she is in better behavioral control. 06/10--will continue MNPR for now, though patient has demonstrated a rather significant improvement in behavior today (3) Bipolar disorder: 06/06 -Both the patient and her mother report that she has a history of responding favorably to lamotrigine as a mood stabilizer, as well as to aripiprazole, also has a mood stabilizer and is an antipsychotic. The issue, as noted above has been that the patient is often nonadherent with her outpatient medications and other forms of treatment. -Lamotrigine 25 mg daily has been ordered. Material risks and anticipated benefits of lamotrigine have been reviewed with the patient. Specific risks reviewed with the patient included, but were not limited to, risk of Nicolas- Ismael syndrome and a rash. The patient tells us that she has no history of having any difficulty or side effects associated with lamotrigine in the past. The plan will be to titrate lamotrigine at the standard rate. -Aripiprazole 10 mg daily has been ordered and will be titrated as indicated. The patient reports that she has previously taken aripiprazole. Material risks and anticipated benefits of aripiprazole reviewed with the patient, and she indicates that she has had no problem or side effects with aripiprazole in the past. -Patient reports that she has difficulty sleeping, possibly as the result of her bipolar disorder or as a result of her anxiety. In the past, she has responded favorably to trazodone 50 mg at bedtime as needed for sleep, and this medication at this dose has been ordered. 06/09 -Patient has been unwilling to sign releases to get previous records. -Family meeting once she is in better behavioral control. -She will need referrals for outpatient treatment. 06/10 - Treatment as above - pt reports identifying with the diagnosis of bipolar disorder as it relates to her mood patterns in the past - Continue olanzapine 5mg qAM and 10mg qHS at this time - Continue to offer education on the diagnosis and need for ongoing outpatient treatment (4) Dehydration: 06/06-Patient acknowledges that her oral intake has been poor recently. We will encourage fluids and adequate nutrition during the stay. --resolved. (5) Hypokalemia: 06/06 -We will encourage adequate nutrition during the stay. -Potassium chloride supplement 20 mEq has been ordered, and her serum potassium will be rechecked on 06/07/2019. -The patient is not exhibiting any symptoms of hypokalemia at present. - resolved (6) Cannabis abuse: 06/09 -as patient psychosis improves, provide psychoeducation regarding the risks of hallucinogen use, including destabilization of bipolar illness and worsening of psychotic symptoms. -Avoid prescription of controlled substances given the high risk of abuse/misuse/negative outcomes. -Refer for outpatient dual diagnosis treatment. (7) Methamphetamine abuse: 06/09 -as above, continue to provide education and review recommendations for abstinence from controlled substances and dual diagnosis treatment after discharge from the hospital. Inventory Assets Strengths: Supportive family. Willing to accept treatment. Able to correctly state her given diagnoses. History of favorable response to psychiatric medications and other forms of treatment Needs: Improved adherence with medications. Improved mood regulation. Resolution of paranoia. Avoidance of dyscontrolled, agitated behaviors. Risk Factors Assessment Male: No : No Do You Have Access To A Gun?: No Mental Health Diagnoses: Yes Substance Use Disorders: Yes Previous Attempt: No (The patient tells us that she does not have any history of previous suicide attempts, but she does acknowledge a history of intentional self-injurious behaviors in the form of cutting, and cut both wrists prior to presentation.) Previous Psychiatric Hospitalization: Yes Hopelessness: No Smoker: Yes Protective Factors Assessment : No (The patient tells us that she is technically still , but is and in the process of filing for divorce. She lives alone.) Responsible for Young Children: No (The patient reports that she has never had children.) Employed: No (fired from job at [employer] yesterday) Stable Relationships: Yes Supportive Family: Yes Good Rapport with Provider: No Absence of Any Risk Factors Above: No Interval History Identifying Information GARY YANES is a 24-year-old F who currently lives in alone in [place]. She reports that she has a history of bipolar disorder, ADHD, and OCD. There is also history of stimulant abuse. She was admitted on 06/06/19 12:59 on a 302 involuntary commitment because of agitated, dyscontrolled, and physically aggressive behavior coupled with reports of severe depression and paranoia. Chief Complaint "Oh my gosh...Much Better!" Review of Systems Notes Constitutional: denied Cardiovascular: denied Respiratory: denied Gastrointestinal: denied Neurological: denied Musculoskeletal: reports "tightness and looseness at the same time" in legs bilaterally (concern for possible dystonia) Psychiatric: denies symptoms other than stated above Total of at least 10 systems reviewed, pertinent positives as above and in HPI. Sleep Information Total Hours of Sleep: 7.5 Meal Information Percent Meal Consumed - Breakfast: 75 Percent Meal Consumed - Lunch: 50 Percent Meal Consumed - Dinner: 100 Nutrition Comment: allowed to rest Subjective Subjective Patient was seen & assessed and interval progress reviewed with treatment team. Staff report the patient did take her scheduled doses of oral olanzapine dose last evening in this morning. Staff states that she has been very pleasant this morning, and is seemingly more organized. Plan is to explore patient's readiness to schedule a meeting with her parents to discuss safety and discharge planning. Patient was seen today to assess progress since admission. She reports to this provider that she is feeling "much better." When asked what patient feels has improved for her, she states "my way of thinking, all of it. When I would first came in, I was thinking Ventura Potter all the time. I was finding clues in things. I kept thinking there was a green screen around me, and that I was wearing cheetah print so you guys would shoot me. That I was realizing I was wearing blue, but some people wearing red. I thought I had to wear green to fit in with the green screen. Man, there is a lot going on." Patient states that she is better able at this time to recognize that those things were not actually happening, but rather disorganized and "delusional, yeah that is it!" thoughts. Patient states that her thoughts are becoming more reality based, though does admit to some intermittent episodes of questioning her thoughts. Patient states "the television, for a while it was saying my name. Like it was sending me messages." After explaining her perception of her thought process for the past several days, patient was actually able to participate in a rather insightful conversation regarding possible diagnoses at this time. Patient begins the conversation by inquiring from this provider "do I have schizophrenia?" We discussed various situations in which hallucinations, disorganized thoughts, and delusions may be present. Patient appreciated reviewing diagnostic criteria for schizophrenia versus bipolar 1 disorder, and verbalized understanding that additional information may be necessary to solidify a clear diagnosis. During this conversation, patient continued to identify strongly with a bipolar disorder in regard to her patterns of mood changes. Patient even states "I hate the word manic. When I am manic, I know t hat things are not good." Even without prompting, patient was able to recognize that her meth use prior to admission clouds her diagnostic picture as well. Patient does believe that the olanzapine has been helpful for her, and is agreeable to continuing the medication. Patient does report willingness to eventually pursue another long-acting injectable antipsychotic, as she states she appreciated not being responsible for taking her medication every day. Patient denies suicidal and homicidal ideation. She does verbalize willingness to increase her dose of olanzapine to 5 mg every morning and 10 mg at bedtime starting this evening. Patient denies other needs or concerns at this time. Physical Exam Psychiatric Orientation: alert, oriented x 3 and cooperative (And pleasant) Apperance: appropriately dressed, appropriately groomed and appeared stated age Eye Contact: good eye contact Motor Behavior: steady gait and station and no abnormal motor movements (Mildly restless) Speech: normal rate/rhythm/volume of speech Affect: euthymic affect and mood congruent with affect Mood: no depressed mood ("Much better") Thought Process: + circumstantial thought process While significantly improved, patient's thought process is still somewhat disorganized and circumstantial. Thought Content: + preoccupation (with her love for Ventura Licona) and + ideas of reference (improving, though likey not entirely resolved); not paranoid Suicidal Thoughts: denies suicidal thoughts Homicidal Thoughts: denies homicidal thoughts Hallucinations: no auditory hallucinations and no visual hallucinations No clear auditory hallucinations, though patient did admit to thinking she was hearing people on the television saying her name Cognition: attention grossly intact and language grossly intact Insight: + impaired insight (though seemingly improved today with use of olanzapine) Judgement: + limited judgement Vital Signs (Past 24 Hours) Last Vital Signs Temp 37.2 C 06/11/19 06:51 Pulse 73 06/11/19 06:51 Resp 16 06/11/19 06:51 BP 120/79 06/11/19 06:51 Pulse Ox 99 06/06/19 13:29 Results & Data ([facility]) Current Inpatient Medications Current Inpatient Medications: Current Inpatient Medications Acetaminophen (Tylenol) 650 mg PO Q4H PRN PRN Reason: Headache or Minor Fever Stop: 07/06/19 17:01 Last Admin: 06/11/19 08:05 Dose: 650 mg Documented by: Al Hydrox/Mg Hydrox/Simethicone (Maalox) 30 ml PO Q4H PRN PRN Reason: GI Upset Stop: 07/06/19 17:01 Benztropine Mesylate (Cogentin) 0.5 mg PO Q4 PRN PRN Reason: Muscle Spasm Stop: 07/07/19 16:06 Last Admin: 06/11/19 10:40 Dose: 0.5 mg Documented by: Bismuth Subsalicylate (Kaopectate) 15 ml PO PRN PRN PRN Reason: Loose Stool Stop: 07/06/19 17:01 Hydroxyzine HCl (Vistaril) 25 mg PO Q6H PRN PRN Reason: Anxiety Stop: 07/10/19 12:28 Magnesium Hydroxide (Milk Of Magnesia) 30 ml PO DAILY PRN PRN Reason: Constipation Stop: 07/06/19 17:01 Nicotine Polacrilex (Nicorette 2mg) 1 piece MT PRN PRN PRN Reason: Nicotine Withdrawal Stop: 07/06/19 17:01 Olanzapine (Zyprexa Zydis Od) 5 mg PO Q6 PRN PRN Reason: Anxiety/Agitation Stop: 07/07/19 16:07 Olanzapine (Zyprexa Zydis Od) 5 mg PO BID JENNIFER Stop: 07/10/19 12:29 Last Admin: 06/11/19 08:05 Dose: 5 mg Documented by: Olanzapine (Zyprexa) 10 mg IM Q6 PRN PRN Reason: psychosis or refusal of PO med Stop: 07/09/19 17:59 Quetiapine Fumarate (Seroquel) 50 mg PO Q4H PRN PRN Reason: psychosis Stop: 07/10/19 12:27 Last Admin: 06/10/19 12:44 Dose: 50 mg Documented by: Sodium Chloride ([place]field Nasal) 1 - 2 sprays NA PRN PRN PRN Reason: Nasal Dryness/Congestion Stop: 07/06/19 17:01 Mental Health & Subst Abuse Tx Therapist Name of Therapist: None Loss Control Manager Name of Loss Control Manager: None Post Discharge Appointments Primary Care Physician Name Of Family Doctor: DEJAN Pruett Primary Care Provider Appointment Comment: [id number] [facility], [address], [place] Contact Information Discharge Discharge [address]: [address] [place] [address], [address] [place] [address] (1) Psychosis Psychosis type: unspecified psychosis type Qualified Code(s): F29 - Unspecified psychosis not due to a substance or known physiological condition
[2019-06-11] MEDS: OLANZAPINE ZYDIS 10 MG ORALLY DIS. TAB PO SCH (21:26)
[2019-06-11] MEDS: OLANZAPINE ZYDIS 5 MG ORALLY DIS. TAB PO PRN (22:27)
[2019-06-12] MEDS: ACETAMINOPHEN 325 MG TAB PO PRN ×2 (07:10→13:31)
[2019-06-12] MEDS: OLANZAPINE ZYDIS 5 MG ORALLY DIS. TAB PO SCH (08:55)
[2019-06-12] MEDS: BENZTROPINE MESYLATE 0.5 MG TAB PO PRN (08:58)
--- NOTE | 2019-06-12 09:40 | Psychiatric Progress Note ---
Date of Service June 12, 2019 Impression / Recommendations Impression 24-year-old single female with a history of bipolar disorder, borderline personality disorder, substance abuse (methamphetamine and cannabis), treatment noncompliance, and remote history of ODD, IED, and ADHD who was brought to the emergency room by her mother for paranoid and disorganized behavior and self injury, having cut both wrists on the day of presentation. She eloped from the ER, was running in the parking lot naked, and was so agitated that she required restraints and IM medications. She is disorganized, paranoid, and hallucinating, has been extremely restless and unable to tolerate groups or assessments, and although she initially agreed to retrial of Abilify (hx of Maintena) and Lamictal, she only accepted 2 doses before refusing to continue, then agreed to a Seroquel trial 06/07, but refused titration of the medication to appropriate doses. 303 was granted on 06/10/2019 and patient was started on olanzapine. 2-physician opinions for medications over objection were rendered, due to the severity of her symptoms and inability to maintain behavioral control or participate in treatment - though patient has been compliant with scheduled oral medications. Patient has been agreeable with taking her prescribed olanzapine and has been much more appropriate during group and in her interactions with peers. Pt still requires a family meeting with parents to discuss aftercare and safety planning. She will need referrals for outpatient psychiatric providers prior to discharge. (1) Psychosis: 06/06/19 -The patient describes herself as being "paranoid." Although she has difficulty explaining what she means by the use of the word "paranoia," and while she does not reveal any tracie delusional believes, she does say that she has difficulty trusting other people, and often doubts the veracity and intentions of other people. -The patient adds that she feels that her paranoia is brought on by a chronic feeling of anxiety, which she describes as a sense that "something bad is about to happen," even though she is unable to recognize what that might be. -Because the patient has reported that her paranoia has responded favorably to aripiprazole in the past, we will begin the aripiprazole 10 mg daily and titrate as indicated. -The patient is also been referred for individual, group and activity therapies and will be encouraged to attend as a way of developing improved individual coping strategies. 06/07/19--continue Abilify 10 mg today, may require additional Haldol prn. Consider MCCLAIN. 06/07--d/c Abilify, Seroquel 50 mg po qhs with plan to titrate, Zyprexa prn as ordered in interim. 06/08--Seroquel to 100 mg this hs, currently states she will refuse, Zyprexa dissolvable PO prn as ordered. Given level of agitation this am feel elopement precautions are warranted and will order Zyprexa 10 mg IM in case of emergency restraint and ultimately this may need to be given in place of PO meds if starts refusing consistently. Given presentation to ED and hospital course thus far, it is my medical opinion that she will fail to show improvement without forced antipsychotic medication for mood stabilization. She is unable to care for basic needs and has exhibited significant level of impulsivity that or serious physical disability would likely occur within 30 days without these interventions. Case discussed with cardiac care unit nurse Dr. Murray who will do second opinion as needed. 06/09 -patient refusing all antipsychotic medication yesterday, although eventually accepted a lower dose of quetiapine (50 mg). Unfortunately, this is not an antipsychotic dose and is insufficient to manage her psychotic symptoms, and she is not willing to take oral medications regularly. I agree with medications over objection, as she has a history of bipolar disorder with mood and psychotic symptoms requiring mood stabilizing and antipsychotic medication, and her symptoms are unlikely to improve without medication. Ongoing symptoms place her at risk of harm to both herself and others due to her psychosis, self injury, inability to obtain adequate nutrition and hydration without the care and assistance of others, and agitation/erratic behavior. She did demonstrate some improvement after receiving haloperidol in the ER. Discontinue quetiapine, as she is not allowing dose escalation to antipsychotic doses that would adequately treat symptoms. Start olanzapine 5 mg twice daily with IM backup for refusal, as she has received this medication during this hospitalization and tolerated it. -Reviewed fasting labs for monitoring on an atypical antipsychotic: Cholesterol levels and fasting glucose within normal limits. 06/10 - Pt has been compliant with scheduled oral olanzapine as offered. She is interested in further titration and will be ordered 5mg qAM and 10mg qHS starting this evening. She does appear to be responding rather well to the medication. - 2-physician opinions have been rendered for medications over objection should this be required - Involve parents in a family meeting when patient is appropriate - pt verbalizing request to wait a few more days for this as she does not yet feel ready - Refer for outpatient psychiatric treatment 06/11 - Continue current dosage of olanzapine - pt did receive total of 20mg yesterday (as she requested a 5mg prn dose) - consider need for further titration of scheduled dosing - Will need to schedule family meeting with parents in order to discuss safety and discharge planning - Pt declining recommendation for inpatient D&A rehabilitation at discharge - she is agreeable with outpatient dual diagnosis therapy and referral for a psychiatric prescriber and vocational case manager (2) Aggressive behavior: 06/06 -The patient's behavior in the emergency room was extremely agitated and largely [id number]. At one point she required mechanical restraints in order to preserve her safety and the safety of others around her. She also ack nowledges that, in the past, she has "defended herself" [physically] when necessary when threatened, and this is within the context of her telling us that she feels "paranoid." However, the patient also tells us that she is having no thoughts currently of causing physical harm to anyone and that she will let us know if she begins to feel unsafe or threatened on the unit. --continue medically necessary private room due to lability. 06/08--elopement precautions and MNPR 06/09--continue private room and elopement precautions. Start medications over objection as above. Excuse from groups until she is in better behavioral control. 06/10--will continue MNPR for now, though patient has demonstrated a rather significant improvement in behavior today (3) Bipolar disorder: 06/06 -Both the patient and her mother report that she has a history of responding favorably to lamotrigine as a mood stabilizer, as well as to aripiprazole, also has a mood stabilizer and is an antipsychotic. The issue, as noted above has been that the patient is often nonadherent with her outpatient medications and other forms of treatment. -Lamotrigine 25 mg daily has been ordered. Material risks and anticipated benefits of lamotrigine have been reviewed with the patient. Specific risks reviewed with the patient included, but were not limited to, risk of Nicolas-Garry nson syndrome and a rash. The patient tells us that she has no history of having any difficulty or side effects associated with lamotrigine in the past. The plan will be to titrate lamotrigine at the standard rate. -Aripiprazole 10 mg daily has been ordered and will be titrated as indicated. The patient reports that she has previously taken aripiprazole. Material risks and anticipated benefits of aripiprazole reviewed with the patient, and she indicates that she has had no problem or side effects with aripiprazole in the past. -Patient reports that she has difficulty sleeping, possibly as the result of her bipolar disorder or as a result of her anxiety. In the past, she has responded favorably to trazodone 50 mg at bedtime as needed for sleep, and this medication at this dose has been ordered. 06/09 -Patient has been unwilling to sign releases to get previous records. -Family meeting once she is in better behavioral control. -She will need referrals for outpatient treatment. 06/10 - 06/11 - Treatment as above - pt reports identifying with the diagnosis of bipolar disorder as it relates to her mood patterns in the past - Continue olanzapine 5mg qAM and 10mg qHS at this time - Continue to offer education on the diagnosis and need for ongoing outpatient treatment (4) Dehydration: 06/06-Patient acknowledges that her oral intake has been poor recently. We will encourage fluids and adequate nutrition during the stay. --resolved. (5) Hypokalemia: 06/06 -We will encourage adequate nutrition during the stay. -Potassium chloride supplement 20 mEq has been ordered, and her serum potassium will be rechecked on 06/07/2019. -The patient is not exhibiting any symptoms of hypokalemia at present. - resolved (6) Cannabis abuse: 06/09 -as patient psychosis improves, provide psychoeducation regarding the risks of hallucinogen use, including destabilization of bipolar illness and worsening of psychotic symptoms. -Avoid prescription of controlled substances given the high risk of abuse/misuse/negative outcomes. -Refer for outpatient dual diagnosis treatment. 06/11 -Brief intervention was offered and accepted. Intervention was greater than 5 min in length. - Pt is agreeable to outpatient D&A counseling, but unwilling to consider inar tient rehab or an [facility] Brief interventions include: 1. Assess Readiness to Quit, 2. Advise: Help Patient to Reduce or Abstain from abusable substances, 3. Agree: Set Specific, Feasible Goals, 4. Assist: Anticipate barriers, Problem-Solving Solutions. Social work to 5. Arrange: Referrals to appropriate treatment. Summary of intervention: The patient is in contemplation stage with regards to transtheoretical model of change. The patient is advised to decrease substance abuse due to mood altering effects and risk of interactions with prescription medications. The patient was advised of recommendations for abstinence from abusable substance and to attend substance abuse treatment at discharge, and will be provided with recovery materials to continue to education self on how to cope with their condition without drinking. (7) Methamphetamine abuse: 06/09 -as above, continue to provide education and review recommendations for abstinence from controlled substances and dual diagnosis treatment after discharge from the hospital. 06/11 - Substance abuse intervention using motivational interviewing as above - Pt is interested in D&A counseling on an outpatient basis Inventory Assets Strengths: Supportive family. Willing to accept treatment. Able to correctly state her given diagnoses. History of favorable response to psychiatric medications and other forms of treatment Needs: Improved adherence with medications. Improved mood regulation. Resolution of paranoia. Avoidance of dyscontrolled, agitated behaviors. Risk Factors Assessment Male: No : No Do You Have Access To A Gun?: No Mental Health Diagnoses: Yes Substance Use Disorders: Yes Previous Attempt: No (The patient tells us that she does not have any history of previous suicide attempts, but she does acknowledge a history of intentional self-injurious behaviors in the form of cutting, and cut both wrists prior to presentation.) Previous Psychiatric Hospitalization: Yes Hopelessness: No Smoker: Yes Protective Factors Assessment : No (The patient tells us that she is technically still , but is and in the process of filing for divorce. She lives alone.) Responsible for Young Children: No (The patient reports that she has never had children.) Employed: No (fired from job at [employer] yesterday) Stable Relationships: Yes Supportive Family: Yes Good Rapport with Provider: No Absence of Any Risk Factors Above: No Interval History Identifying Information GARY DOVERAXEL is a 24-year-old F who currently lives in alone in [place]. She reports that she has a history of bipolar disorder, ADHD, and OCD. There is also history of stimulant abuse. She was admitted on 06/06/19 12:59 on a 302 involuntary commitment because of agitated, dyscontrolled, and physically aggressive behavior coupled with reports of severe depression and paranoia. Chief Complaint "Yeah, I had to take the extra medication. I was really amped to keep learning, so I wasn't tired." Review of Systems Notes Constitutional: denied Cardiovascular: denied Respiratory: denied Gastrointestinal: denied Neurological: denied Psychiatric: denies symptoms other than stated above Total of at least 10 systems reviewed, pertinent positives as above and in HPI. Sleep Information Total Hours of Sleep: 7 Meal Information Percent Meal Consumed - Breakfast: 75 Percent Meal Consumed - Lunch: 100 Percent Meal Consumed - Dinner: 50 Nutrition Comment: allowed to rest Subjective Subjective Patient was seen & assessed and interval progress reviewed with nursing and social work. Staff report the patient has been doing well, is considerably more appropriate in interactions with peers, and has been far less irritable. While she continues to be a bit restless and pressured at times, she has been attending groups regularly and her thought process is reported to be more organized. Pt was seen today to assess progress since admission. Pt states that she is doing well, and continues to find the olanzapine helpful for keeping her thoughts clear. Pt states that she did request a prn dose last evening as she was not feeling tired, and continued to be "amped to keep learning. I had a pile of papers in my room that I was just reading through over and over. It was almost lights out, but I wasn't really tired." Pt states that the prn was effective for slowing her thoughts and allowing her to fall asleep. Pt does report to this provider that she is ready for a meeting with her parents, and feels her biggest goal will be to ask her parents "to check-up on me more. I would really appreciate if they checked in more regularly, to see if I'm ok." She states that her friends are often not aware of her mental health struggles, and that they are also the ones to encourage her to use substances. She states "it would be really helpful to have my parents around a little more often." Pt states that she was rather proud of what she had accomplished in the last two years: living semi-independently, cooking/caring for herself, working a job, and still having time for her friends. She states "and I did all that off medications." We discussed that continuing her medications will allow her to get back to that situation more rapidly, and likely allow her to sustain it even longer. We discussed patient's wishes for aftercare. Pt did verbalize a desire to stop using substances "except for cigarettes", but is declining recommendation for inpatient rehab. She would be willing for a substance abuse counselor on an outpatient basis as - "I want to keep working while I do that, and I don't want to be confined anywhere." Pt denies SI and any considerable mood concerns at this time. Pt denies other needs or concerns from this provider. Physical Exam Psychiatric Orientation: alert, oriented x 3 and cooperative (and pleasant) Apperance: appropriately dressed, appropriately groomed and appeared stated age Pt wearing short-sleeve shirt which exposes numerous scars to arms bilaterally - seeming to be consistent with a history of SIB by cutting Eye Contact: good eye contact Motor Behavior: steady gait and station (no longer limping, reporting legs feel less stiff), no abnormal motor movements and + psychomotor agitation (continues to present as restless/hyperactive) Speech: normal rate/rhythm/volume of speech (speech remains rapid, but not as pressured) Affect: euthymic affect (bright, interactive) Mood: no depressed mood and no anxious mood Thought Process: goal directed thought process and clear/coherent thought process (thought it seems thought continue to be rapid/racing) Thought Content: reality based without delusions; not paranoid, no hopelessness and no worthlessness Suicidal Thoughts: denies suicidal thoughts and denies suicidal intent Homicidal Thoughts: denies homicidal thoughts Hallucinations: no auditory hallucinations and no visual hallucinations Cognition: attention grossly intact and language grossly intact Insight: + fair insight Judgement: + fair judgement Vital Signs (Past 24 Hours) Last Vital Signs Temp 36.7 C 06/12/19 06:48 Pulse 102 H 06/12/19 06:48 Resp 16 06/12/19 06:48 BP 117/69 06/12/19 06:48 Pulse Ox 99 06/06/19 13:29 Results & Data ([facility]) Current Inpatient Medications Current Inpatient Medications: Current Inpatient Medications Acetaminophen (Tylenol) 650 mg PO Q4H PRN PRN Reason: Headache or Minor Fever Stop: 07/06/19 17:01 Last Admin: 06/12/19 07:10 Dose: 650 mg Documented by: Al Hydrox/Mg Hydrox/Simethicone (Maalox) 30 ml PO Q4H PRN PRN Reason: GI Upset Stop: 07/06/19 17:01 Benztropine Mesylate (Cogentin) 0.5 mg PO Q4 PRN PRN Reason: Muscle Spasm Stop: 07/07/19 16:06 Last Admin: 06/12/19 08:58 Dose: 0.5 mg Documented by: Bismuth Subsalicylate (Kaopectate) 15 ml PO PRN PRN PRN Reason: Loose Stool Stop: 07/06/19 17:01 Hydroxyzine HCl (Vistaril) 25 mg PO Q6H PRN PRN Reason: Anxiety Stop: 07/10/19 12:28 Magnesium Hydroxide (Milk Of Magnesia) 30 ml PO DAILY PRN PRN Reason: Constipation Stop: 07/06/19 17:01 Nicotine Polacrilex (Nicorette 2mg) 1 piece MT PRN PRN PRN Reason: Nicotine Withdrawal Stop: 07/06/19 17:01 Olanzapine (Zyprexa Zydis Od) 5 mg PO Q6 PRN PRN Reason: Anxiety/Agitation Stop: 07/07/19 16:07 Last Admin: 06/11/19 22:27 Dose: 5 mg Documented by: Olanzapine (Zyprexa) 10 mg IM Q6 PRN PRN Reason: psychosis or refusal of PO med Stop: 07/09/19 17:59 Olanzapine (Zyprexa Zydis Od) 5 mg PO QAM JENNIFER Stop: 07/12/19 08:59 Last Admin: 06/12/19 08:55 Dose: 5 mg Documented by: Olanzapine (Zyprexa Zydis Od) 10 mg PO HS JENNIFER Stop: 07/11/19 21:59 Last Admin: 06/11/19 21:26 Dose: 10 mg Documented by: Quetiapine Fumarate (Seroquel) 50 mg PO Q4H PRN PRN Reason: psychosis Stop: 07/10/19 12:27 Last Admin: 06/10/19 12:44 Dose: 50 mg Documented by: Sodium Chloride (Mikes Nasal) 1 - 2 sprays NA PRN PRN PRN Reason: Nasal Dryness/Congestion Stop: 07/06/19 17:01 Mental Health & Subst Abuse Tx Therapist Name of Therapist: None Computer Drafter Name of Computer Drafter: None Post Discharge Appointments Primary Care Physician Name Of Family Doctor: DEJAN Pruett Primary Care Provider Appointment Comment: [address] [employer] [address], [address], [place] Contact Information Discharge Discharge Address: [address] [place] [address], [facility], [place] [address] (1) Psychosis Psychosis type: unspecified psychosis type Qualified Code(s): F29 - Unspecified psychosis not due to a substance or known physiological condition
[2019-06-12] MEDS: OLANZAPINE ZYDIS 5 MG ORALLY DIS. TAB PO PRN (17:24)
[2019-06-12] MEDS: OLANZAPINE ZYDIS 10 MG ORALLY DIS. TAB PO SCH (19:22)
[2019-06-13] MEDS: OLANZAPINE ZYDIS 5 MG ORALLY DIS. TAB PO SCH (09:20)
[2019-06-13] MEDS: ACETAMINOPHEN 325 MG TAB PO PRN ×2 (09:33→20:00)
--- NOTE | 2019-06-13 12:00 | Psychiatric Progress Note ---
Date of Service June 13, 2019 Impression / Recommendations Impression 24-year-old single female with a history of bipolar disorder, borderline personality disorder, substance abuse (methamphetamine and cannabis), treatment noncompliance, and remote history of ODD, IED, and ADHD who was brought to the emergency room by her mother for paranoid and disorganized behavior and self injury, having cut both wrists on the day of presentation. She eloped from the ER, was running in the parking lot naked, and was so agitated that she required restraints and IM medications. She is disorganized, paranoid, and hallucinating, has been extremely restless and unable to tolerate groups or assessments, and although she initially agreed to retrial of Abilify (hx of [facility]) and Lamictal, she only accepted 2 doses before refusing to continue, then agreed to a Seroquel trial 06/07, but refused titration of the medication to appropriate doses. 303 was granted on 06/10/2019 and patient was started on olanzapine. 2-physician opinions for medications over objection were rendered, due to the severity of her symptoms and inability to maintain behavioral control or participate in treatment - though patient has been compliant with scheduled oral medications. Patient has been agreeable with taking her prescribed olanzapine and has been much more appropriate during group and in her interactions with peers. Pt still requires a family meeting with parents to discuss aftercare and safety planning, and such a meeting is scheduled for 06/14/2019. The patient seems to have enjoyed a remarkable improvement coincident with the addition of olanzapine, and the patient agrees that olanzapine has been extremely helpful to her in stabilizing her mood and improving her overall ability to think clearly. Also is reporting that it is helping with her sleep, and that she feels that she is now ready to continue her treatment on an outpatient basis following further coordination of outpatient care with her family and outpatient providers, given the substantial risk associated with the stress of community reentry and her frequent history of both psychiatric and chemical dependency relapses. (1) Psychosis: 06/06/19 -The patient describes herself as being "paranoid." Although she has difficulty explaining what she means by the use of the word "paranoia," and while she does not reveal any tracie delusional believes, she does say that she has difficulty trusting other people, and often doubts the veracity and intentions of other people. -The patient adds that she feels that her paranoia is brought on by a chronic feeling of anxiety, which she describes as a sense that "something bad is about to happen," even though she is unable to recognize what that might be. -Because the patient has reported that her paranoia has responded favorably to aripiprazole in the past, we will begin the aripiprazole 10 mg daily and titrate as indicated. -The patient is also been referred for individual, group and activity therapies and will be encouraged to attend as a way of developing improved individual coping strategies. 06/07/19--continue Abilify 10 mg today, may require additional Haldol prn. Consider MCCLAIN. 06/07--d/c Abilify, Seroquel 50 mg po qhs with plan to titrate, Zyprexa prn as ordered in interim. 06/08--Seroquel to 100 mg this hs, currently states she will refuse, Zyprexa dissolvable PO prn as ordered. Given level of agitation this am feel elopement precautions are warranted and will order Zyprexa 10 mg IM in case of emergency restraint and ultimately this may need to be given in place of PO meds if starts refusing consistently. Given presentation to ED and hospital course thus far, it is my medical opinion that she will fail to show improvement without forced antipsychotic medication for mood stabilization. She is unable to care for basic needs and has exhibited significant level of impulsivity that or serious physical disability would likely occur within 30 days without these interventions. Case discussed with microfilm duplicating unit supervisor Dr. Murray who will do second opinion as needed. 06/09 -patient refusing all antipsychotic medication yesterday, although eventually accepted a lower dose of quetiapine (50 mg). Unfortunately, this is not an antipsychotic dose and is insufficient to manage her psychotic symptoms, and she is not willing to take oral medications regularly. I agree with medications over objection, as she has a history of bipolar disorder with mood and psychotic symptoms requiring mood stabilizing and antipsychotic medication, and her symptoms are unlikely to improve without medication. Ongoing symptoms place her at risk of harm to both herself and others due to her psychosis, self injury, inability to obtain adequate nutrition and hydration without the care and assistance of others, and agitation/erratic behavior. She did demonstrate some improvement after receiving haloperidol in the ER. Discontinue quetiapine, as she is not allowing dose escalation to antipsychotic doses that would adequately treat symptoms. Start olanzapine 5 mg twice daily with IM backup for refusal, as she has received this medication during this hospitalization and tolerated it. -Reviewed fasting labs for monitoring on an atypical antipsychotic: Cholesterol levels and fasting glucose within normal limits. 06/10 - Pt has been compliant with scheduled oral olanzapine as offered. She is interested in further titration and will be ordered 5mg qAM and 10mg qHS starting this evening. She does appear to be responding rather well to the medication. - 2-physician opinions have been rendered for medications over objection s hould this be required - Involve parents in a family meeting when patient is appropriate - pt verbalizing request to wait a few more days for this as she does not yet feel ready - Refer for outpatient psychiatric treatment 06/11 - Continue current dosage of olanzapine - pt did receive total of 20mg yesterday (as she requested a 5mg prn dose) - consider need for further titration of scheduled dosing - Will need to schedule family meeting with parents in order to discuss safety and discharge planning - Pt declining recommendation for inpatient D&A rehabilitation at discharge - she is agreeable with outpatient dual diagnosis therapy and referral for a psychiatric prescriber and community case manager 06/12 -The patient seems to be responding quite well to the olanzapine. She notes that she feels that she is tolerating it well, notes no significant side effects, and agrees that this is "a very good medicine for [her]." -There is no further evidence of any psychotic features. Of note today is the fact the patient says that she is aware that she was experiencing symptoms of paranoia prior to admission and during the initial portion of the stay. However, she says that, at least in part, the symptoms were probably attributable to the abuse of, and withdrawal from, methamphetamine. She notes that, in the past, she has had similar symptoms while using or withdrawing from stimulants. (2) Aggressive behavior: 06/06 -The patient's behavior in the emergency room was extremely agitated and largely [id number]. At one point she required mechanical restraints in order to preserve her safety and the safety of others around her. She also acknowledges that, in the past, she has "defended herself" [physically] when necessary when threatened, and this is within the context of her telling us that she feels "paranoid." However, the patient also tells us that she is having no thoughts currently of causing physical harm to anyone and that she will let us know if she begins to feel unsafe or threatened on the unit. --continue medically necessary private room due to lability. 06/08--elopement precautions and MNPR 06/09--continue private room and elopement precautions. Start medications over objection as above. Excuse from groups until she is in better behavioral control. 06/10--will continue MNPR for now, though patient has demonstrated a rather significant improvement in behavior today 06/12 --the patient's behavior is now pleasant and appropriate. There is been no further aggressive behaviors. (3) Bipolar disorder: 06/06 -Both the patient and her mother report that she has a history of responding favorably to lamotrigine as a mood stabilizer, as well as to aripiprazole, also has a mood stabilizer and is an antipsychotic. The issue, as noted above has been that the patient is often nonadherent with her outpatient medications and other forms of treatment. -Lamotrigine 25 mg daily has been ordered. Material risks and anticipated benefits of lamotrigine have been reviewed with the patient. Specific risks reviewed with the patient included, but were not limited to, risk of Nicolas- Ismael syndrome and a rash. The patient tells us that she has no history of having any difficulty or side effects associated with lamotrigine in the past. The plan will be to titrate lamotrigine at the standard rate. -Aripiprazole 10 mg daily has been ordered and will be titrated as indicated. The patient reports that she has previously taken aripiprazole. Material risks and anticipated benefits of aripiprazole reviewed with the patient, and she indicates that she has had no problem or side effects with aripiprazole in the past. -Patient reports that she has difficulty sleeping, possibly as the result of her bipolar disorder or as a result of her anxiety. In the past, she has responded favorably to trazodone 50 mg at bedtime as needed for sleep, and this medication at this dose has been ordered. 06/09 -Patient has been unwilling to sign releases to get previous records. -Family meeting once she is in better behavioral control. -She will need referrals for outpatient treatment. 06/10 - 06/11 - Treatment as above - pt reports identifying with the diagnosis of bipolar disorder as it relates to her mood patterns in the past - Continue olanzapine 5mg qAM and 10mg qHS at this time - Continue to offer education on the diagnosis and need for ongoing outpatient treatment 06/12 -The patient's considerable improvement in mood stabilization is noted. Because of the patient's history of frequent psychiatric and drug relapses, with a co-occurring history of multiple psychiatric hospitalizations, we are placing special effort in coordinating aftercare with the patient, her parents (her primary support persons), and her outpatient providers in order to help assure that the patient is able to tolerate the stress of community reentry and is able to enjoy continued and sustained progress towards full recovery. -A meeting to coordinate care with the patient's parents has been scheduled for tomorrow. (4) Dehydration: 06/06-Patient acknowledges that her oral intake has been poor recently. We will encourage fluids and adequate nutrition during the stay. --resolved. (5) Hypokalemia: 06/06 -We will encourage adequate nutrition during the stay. -Potassium chloride supplement 20 mEq has been ordered, and her serum potassium will be rechecked on 06/07/2019. -The patient is not exhibiting any symptoms of hypokalemia at present. - resolved (6) Cannabis abuse: 06/09 -as patient psychosis improves, provide psychoeducation regarding the risks of hallucinogen use, including destabilization of bipolar illness and worsening of psychotic symptoms. -Avoid prescription of controlled substances given the high risk of abuse/misuse/negative outcomes. -Refer for outpatient dual diagnosis treatment. 06/11 -Brief intervention was offered and accepted. Intervention was greater than 5 min in length. - Pt is agreeable to outpatient D&A counseling, but unwilling to consider inpatient rehab or an IOP Brief interventions include: 1. Assess Readiness to Quit, 2. Advise: Help Patient to Reduce or Abstain from abusable substances, 3. Agree: Set Specific, Feasible Goals, 4. Assist: Anticipate barriers, Problem-Solving Solutions. Social work to 5. Arrange: Referrals to appropriate treatment. Summary of intervention: The patient is in contemplation stage with regards to transtheoretical model of change. The patient is advised to decrease substance abuse due to mood altering effects and risk of interactions with prescription medications. The patient was advised of recommendations for abstinence from abusable substance and to attend substance abuse treatment at discharge, and will be provided with recovery materials to continue to education self on how to cope with their condition without drinking. (7) Methamphetamine abuse: 06/09 -as above, continue to provide education and review recommendations for abstinence from controlled substances and dual diagnosis treatment after discharge from the hospital. 06/11 - Substance abuse intervention using motivational interviewing as above - Pt is interested in D&A counseling on an outpatient basis 06/12 -As above, today we focused primarily on considering the patient's various relapse triggers and in further developing and reinforcing her plan for maintaining abstinence from all drugs in the community. Inventory Assets Strengths: Supportive family. Willing to accept treatment. Able to correctly state her given diagnoses. History of favorable response to psychiatric medications and other forms of treatment Needs: Improved adherence with medications. Improved mood regulation. Resolution of paranoia. Avoidance of dyscontrolled, agitated behaviors. Risk Factors Assessment Male: No : No Do You Have Access To A Gun?: No Mental Health Diagnoses: Yes Substance Use Disorders: Yes Previous Attempt: No (The patient tells us that she does not have any history of previous suicide attempts, but she does acknowledge a history of intentional self-injurious behaviors in the form of cutting, and cut both wrists prior to presentation.) Previous Psychiatric Hospitalization: Yes Hopelessness: No Smoker: Yes Protective Factors Assessment : No (The patient tells us that she is technically still , but is and in the process of filing for divorce. She lives alone.) Responsible for Young Children: No (The patient reports that she has never had children.) Employed: No (fired from job at [employer] yesterday) Stable Relationships: Yes Supportive Family: Yes Good Rapport with Provider: No Absence of Any Risk Factors Above: No Interval History Identifying Information GARY DOVERAXEL is a 24-year-old F who currently lives in alone in [place]. She reports that she has a history of bipolar disorder, ADHD, and OCD. There is also history of stimulant abuse. She was admitted on 06/06/19 12:59 on a 302 involuntary commitment because of agitated, dyscontrolled, and physically aggressive behavior coupled with reports of severe depression and paranoia. Chief Complaint " I am a lot better". Review of Systems Sleep Information Total Hours of Sleep: 9 Meal Information Percent Meal Consumed - Breakfast: 90 Percent Meal Consumed - Lunch: 50 Percent Meal Consumed - Dinner: 100 Nutrition Comment: allowed to rest Subjective Subjective Patient was seen & assessed and interval progress reviewed with treatment team. I met with the patient individually in order to assess her current mental status, evaluate her response to treatment, make any necessary changes in the patient's treatment regimen and coordination with the patient, and address issues, questions and concerns that may arise. At the beginning of the encounter, I commented that the patient appears to be "much better," and the patient smiled broadly and said, "I definitely am." She attributes the improvement to the following 2 factors: She is no longer using, nor is she withdrawing from methamphetamine, and she is responding favorably to olanzapine. We discussed the circumstances that had led to the admission, and the patient says ", "yes, I know I was paranoid. But, also, I was withdrawing from meth. That is something happens to me when I withdraw." For most of today's encounter we focused on identifying her triggers for methamphetamine use, and on her strategies for avoiding relapse. The patient tells me that she feels that using methamphetamine for her is a self-destructive act because even before she relapses she is fully aware that using methamphetamine will only make her psychiatric condition worse and resulted in negative personal consequences and induced paranoia. The patient also notes, quite frankly, that a drug relapse trigger is simply the availability of methamphetamine, and often she uses or relapses when someone offers her the drug. Accordingly, she recognizes that it will be very important for her to avoid contact with persons who are likely to provide her with methamphetamine, or encourage her to take it. She also says that she knows that it will be very important for her to adhere to her medication regimen and attend her outpatient appointments as scheduled. The patient has, "A big mistake I make is in thinking that I am "okay" and I do not need the medication anymore or I do not need to go for my appointments." The patient adds, "I actually do know better than that, and my parents are pretty good at helping me remember what happens when I go off my medicationmaybe not right away, but eventually." Patient reports that she feels that she is sleeping well, her mood has stabilized, she is no longer feeling depressed, and she convincingly reports that she is not having any thoughts of self-harm, nor she having any thoughts of causing physical harm to the person or property of others. Further, the patient reports that she feels that she is tolerating olanzapine well and that it is helping by stabilizing her mood, and, also, by helping her sleep at night. Physical Exam Psychiatric Orientation: alert, oriented x 3 and cooperative Apperance: appropriately dressed Eye Contact: good eye contact Motor Behavior: steady gait and station Speech: normal rate/rhythm/volume of speech Affect: euthymic affect The patient's affect is fairly bright today. She smiles frequently and is animated and engaging. "Not depressed. I am actually in a good mood." Thought Process: goal directed thought process, linear/logical thought process and clear/coherent thought process Thought Content: reality based without delusions Suicidal Thoughts: denies suicidal thoughts The patient is future oriented at this point and talks about her plans to avoid chemical misuse in the community, her plan to continue outpatient treatment, her plan to allow her parents to continue to help her and her struggle to achieve and maintain psychiatric recovery and avoidance of chemical dependency. She also notes that her long-term plan is to be able to find and keep a job through which she can financially support herself independently. Homicidal Thoughts: denies homicidal thoughts Hallucinations: no auditory hallucinations Cognition: recent memory grossly intact, remote memory grossly intact, attention grossly intact and language grossly intact Somewhat surprisingly, the patient recalls details of our conversation from last week. At the time, the patient had been up much of the night and had received several large doses of tranquilizing medications. Estimated Intelligence: + above average estimated intelligence Insight: + fair insight Judgement: good judgement Vital Signs (Past 24 Hours) Last Vital Signs Temp 36.8 C 06/13/19 06:32 Pulse 71 06/13/19 06:32 Resp 16 06/13/19 06:32 BP 113/72 06/13/19 06:32 Pulse Ox 99 06/06/19 13:29 Results & Data ([facility]) Current Inpatient Medications Current Inpatient Medications: Current Inpatient Medications Acetaminophen (Tylenol) 650 mg PO Q4H PRN PRN Reason: Headache or Minor Fever Stop: 07/06/19 17:01 Last Admin: 06/13/19 09:33 Dose: 650 mg Documented by: Al Hydrox/Mg Hydrox/Simethicone (Maalox) 30 ml PO Q4H PRN PRN Reason: GI Upset Stop: 07/06/19 17:01 Benztropine Mesylate (Cogentin) 0.5 mg PO Q4 PRN PRN Reason: Muscle Spasm Stop: 07/07/19 16:06 Last Admin: 06/12/19 08:58 Dose: 0.5 mg Documented by: Bismuth Subsalicylate (Kaopectate) 15 ml PO PRN PRN PRN Reason: Loose Stool Stop: 07/06/19 17:01 Last Admin: 06/13/19 10:08 Dose: 15 ml Documented by: Hydroxyzine HCl (Vistaril) 25 mg PO Q6H PRN PRN Reason: Anxiety Stop: 07/10/19 12:28 Last Admin: 06/12/19 19:22 Dose: 25 mg Documented by: Magnesium Hydroxide (Milk Of Magnesia) 30 ml PO DAILY PRN PRN Reason: Constipation Stop: 07/06/19 17:01 Nicotine Polacrilex (Nicorette 2mg) 1 piece MT PRN PRN PRN Reason: Nicotine Withdrawal Stop: 07/06/19 17:01 Olanzapine (Zyprexa Zydis Od) 5 mg PO Q6 PRN PRN Reason: Anxiety/Agitation Stop: 07/07/19 16:07 Last Admin: 06/12/19 17:24 Dose: 5 mg Documented by: Olanzapine (Zyprexa) 10 mg IM Q6 PRN PRN Reason: psychosis or refusal of PO med Stop: 07/09/19 17:59 Olanzapine (Zyprexa Zydis Od) 5 mg PO QAM JENNIFER Stop: 07/12/19 08:59 Last Admin: 06/13/19 09:20 Dose: 5 mg Documented by: Olanzapine (Zyprexa Zydis Od) 10 mg PO HS JENNIFER Stop: 07/11/19 21:59 Last Admin: 06/12/19 19:22 Dose: 10 mg Documented by: Quetiapine Fumarate (Seroquel) 50 mg PO Q4H PRN PRN Reason: psychosis Stop: 07/10/19 12:27 Last Admin: 06/10/19 12:44 Dose: 50 mg Documented by: Sodium Chloride (Plummer Nasal) 1 - 2 sprays NA PRN PRN PRN Reason: Nasal Dryness/Congestion Stop: 07/06/19 17:01 Mental Health & Subst Abuse Tx Psychiatrist Name of Psychiatrist: Bryson Ray Psychiatrist's Date of Appointment with Psychiatrist: 07/04/19 Time of Appointment with Psychiatrist: 1:00 p.m. Psychiatric Appointment Comment: [address] [place] [address] Therapist Name of Therapist: [facility] - Lashonda Ramirez LCSW Therapist's Date of Therapist Appointment: 06/18/19 Time of Therapist Appointment: 12:00 p.m. Therapy Appointment Comment: [address], [address], [place] Refractory Products Supervisor Name of Refractory Products Supervisor: Choco Lopez Phone Number for Refractory Products Supervisor: [phone] Case Management Appointment Comment: Will call you Sunday to assign a community case manager Post Discharge Appointments Primary Care Physician Name Of Family Doctor: DEJAN Pruett Primary Care Provider Appointment Comment: [address], [address], [place] Contact Information Discharge Discharge [address] [address] [place] [address], [address] [place] [address] (1) Psychosis Psychosis type: unspecified psychosis type Qualified Code(s): F29 - Unspecified psychosis not due to a substance or known physiological condition
[2019-06-13] MEDS: OLANZAPINE ZYDIS 10 MG ORALLY DIS. TAB PO SCH (19:59)
[2019-06-14] MEDS: OLANZAPINE ZYDIS 5 MG ORALLY DIS. TAB PO SCH (07:44)
--- NOTE | 2019-06-14 08:32 | Psychiatric Progress Note ---
Date of Service June 14, 2019 Impression / Recommendations Impression 24-year-old single female with a history of bipolar disorder, borderline personality disorder, substance abuse (methamphetamine and cannabis), treatment noncompliance, and remote history of ODD, IED, and ADHD who was brought to the emergency room by her mother for paranoid and disorganized behavior and self injury, having cut both wrists on the day of presentation. She eloped from the ER, was running in the parking lot naked, and was so agitated that she required restraints and IM medications. She is disorganized, paranoid, and hallucinating, has been extremely restless and unable to tolerate groups or assessments, and although she initially agreed to retrial of Abilify (hx of Maintena) and Lamictal, she only accepted 2 doses before refusing to continue, then agreed to a Seroquel trial 06/07, but refused titration of the medication to appropriate doses. 303 was granted on 06/10/2019 and patient was started on olanzapine. 2-physician opinions for medications over objection were rendered, due to the severity of her symptoms and inability to maintain behavioral control or participate in treatment - though patient has been compliant with scheduled oral medications. Patient has been agreeable with taking her prescribed olanzapine and has been much more appropriate during group and in her interactions with peers. Family meeting scheduled this morning to discuss aftercare and safety planning. Will further evaluate discharge timeline after family meeting, as without adequate outpatient supports the patient remains at high risk of harm to self or others or relapse back to detrimental substance ab use habits. (1) Psychosis: 06/06/19 -The patient describes herself as being "paranoid." Although she has difficulty explaining what she means by the use of the word "paranoia," and while she does not reveal any tracie delusional believes, she does say that she has difficulty trusting other people, and often doubts the veracity and intentions of other people. -The patient adds that she feels that her paranoia is brought on by a chronic feeling of anxiety, which she describes as a sense that "something bad is about to happen," even though she is unable to recognize what that might be. -Because the patient has reported that her paranoia has responded favorably to aripiprazole in the past, we will begin the aripiprazole 10 mg daily and titrate as indicated. -The patient is also been referred for individual, group and activity therapies and will be encouraged to attend as a way of developing improved individual coping strategies. 06/07/19--continue Abilify 10 mg today, may require additional Haldol prn. Consider MCCLAIN. 06/07--d/c Abilify, Seroquel 50 mg po qhs with plan to titrate, Zyprexa prn as ordered in interim. 06/08--Seroquel to 100 mg this hs, currently states she will refuse, Zyprexa dissolvable PO prn as ordered. Given level of agitation this am feel elopement precautions are warranted and will order Zyprexa 10 mg IM in case of emergency restraint and ultimately this may need to be given in place of PO meds if starts refusing consistently. Given presentation to ED and hospital course thus far, it is my medical opinion that she will fail to show improvement without forced antipsychotic medication for mood stabilization. She is unable to care for basic needs and has exhibited significant level of impulsivity that or serious physical disability would likely occur within 30 days without these interventions. Case discussed with community development aide Dr. Murray who will do second opinion as needed. 06/09 -patient refusing all antipsychotic medication yesterday, although eventually accepted a lower dose of quetiapine (50 mg). Unfortunately, this is not an antipsychotic dose and is insufficient to manage her psychotic symptoms, and she is not willing to take oral medications regularly. I agree with medications over objection, as she has a history of bipolar disorder with mood and psychotic symptoms requiring mood stabilizing and antipsychotic medication, and her symptoms are unlikely to improve without medication. Ongoing symptoms place her at risk of harm to both herself and others due to her psychosis, self injury, inability to obtain adequate nutrition and hydration without the care and assistance of others, and agitation/erratic behavior. She did demonstrate some improvement after receiving haloperidol in the ER. Discontinue quetiapine, as she is not allowing dose escalation to antipsychotic doses that would adequately treat symptoms. Start olanzapine 5 mg twice daily with IM backup for refusal, as she has received this medication during this hospitalization and tolerated it. -Reviewed fasting labs for monitoring on an atypical antipsychotic: Cholesterol levels and fasting glucose within normal limits. 06/10 - Pt has been compliant with scheduled oral olanzapine as offered. She is interested in further titration and will be ordered 5mg qAM and 10mg qHS starting this evening. She does appear to be responding rather well to the medication. - 2-physician opinions have been rendered for medications over objection should this be required - Involve parents in a family meeting when patient is appropriate - pt verbalizing request to wait a few more days for this as she does not yet feel ready - Refer for outpatient psychiatric treatment 06/11 - Continue current dosage of olanzapine - pt did receive total of 20mg yesterday (as she requested a 5mg prn dose) - consider need for further titration of scheduled dosing - Will need to schedule family meeting with parents in order to discuss saf ety and discharge planning - Pt declining recommendation for inpatient D&A rehabilitation at discharge - she is agreeable with outpatient dual diagnosis therapy and referral for a psychiatric prescriber and case consultant 06/12 -The patient seems to be responding quite well to the olanzapine. She notes that she feels that she is tolerating it well, notes no significant side effects, and agrees that this is "a very good medicine for [her]." -There is no further evidence of any psychotic features. Of note today is the fact the patient says that she is aware that she was experiencing symptoms o f paranoia prior to admission and during the initial portion of the stay. However, she says that, at least in part, the symptoms were probably attributable to the abuse of, and withdrawal from, methamphetamine. She notes that, in the past, she has had similar symptoms while using or withdrawing from stimulants. 06/13 - Psychosis continues to resolve with ongoing use of olanzapine - no present delusions, hallucinations or significant paranoia. Pt does present with continued irritability though this may be better explained by her bipolar disorder diagnosis at this time - See treatment plan for bipolar disorder for ongoing treatment considerations (2) Aggressive behavior: 06/06 -The patient's behavior in the emergency room was extremely agitated and largely [id number]. At one point she required mechanical restraints in order to preserve her safety and the safety of others around her. She also acknowledges that, in the past, she has "defended herself" [physically] when necessary when threatened, and this is within the context of her telling us that she feels "paranoid." However, the patient also tells us that she is having no thoughts currently of causing physical harm to anyone and that she will let us know if she begins to feel unsafe or threatened on the unit. --continue medically necessary private room due to lability. 06/08--elopement precautions and MNPR 06/09--continue private room and elopement precautions. Start medications over objection as above. Excuse from groups until she is in better behavioral control. 06/10--will continue MNPR for now, though patient has demonstrated a rather significant improvement in behavior today 06/12 --the patient's behavior is now pleasant and appropriate. There is been no further aggressive behaviors. (3) Bipolar disorder: 06/06 -Both the patient and her mother report that she has a history of responding favorably to lamotrigine as a mood stabilizer, as well as to aripiprazole, also has a mood stabilizer and is an antipsychotic. The issue, as noted above has been that the patient is often nonadherent with her outpatient medications and other forms of treatment. -Lamotrigine 25 mg daily has been ordered. Material risks and anticipated benefits of lamotrigine have been reviewed with the patient. Specific risks reviewed with the patient included, but were not limited to, risk of Nicolas- Ismael syndrome and a rash. The patient tells us that she has no history of having any difficulty or side effects associated with lamotrigine in the past. The plan will be to titrate lamotrigine at the standard rate. -Aripiprazole 10 mg daily has been ordered and will be titrated as indicated. The patient reports that she has previously taken aripiprazole. Material risks and anticipated benefits of aripiprazole reviewed with the patient, and she indicates that she has had no problem or side effects with aripiprazole in t he past. -Patient reports that she has difficulty sleeping, possibly as the result of her bipolar disorder or as a result of her anxiety. In the past, she has responded favorably to trazodone 50 mg at bedtime as needed for sleep, and this medication at this dose has been ordered. 06/09 -Patient has been unwilling to sign releases to get previous records. -Family meeting once she is in better behavioral control. -She will need referrals for outpatient treatment. 06/10 - 06/11 - Treatment as above - pt reports identifying with the diagnosis of bipolar disorder as it relates to her mood patterns in the past - Continue olanzapine 5mg qAM and 10mg qHS at this time - Continue to offer education on the diagnosis and need for ongoing outpatient treatment 06/12 -The patient's considerable improvement in mood stabilization is noted. Because of the patient's history of frequent psychiatric and drug relapses, with a co-occurring history of multiple psychiatric hospitalizations, we are placing special effort in coordinating aftercare with the patient, her parents (her primary support persons), and her outpatient providers in order to help assure that the patient is able to tolerate the stress of community reentry and is able to enjoy continued and sustained progress towards full recovery. -A meeting to coordinate care with the patient's parents has been scheduled for tomorrow. 06/13 - Continue treatment plan as outlined above - prn olanzapine 5mg remains available, patient declining to increase her scheduled dose of the medication - Family meeting scheduled for this morning with parents - will need to discuss housing plans, treatment compliance, and proximity to baseline (4) Dehydration: 06/06-Patient acknowledges that her oral intake has been poor recently. We will encourage fluids and adequate nutrition during the stay. --resolved. (5) Hypokalemia: 06/06 -We will encourage adequate nutrition during the stay. -Potassium chloride supplement 20 mEq has been ordered, and her serum potassium will be rechecked on 06/07/2019. -The patient is not exhibiting any symptoms of hypokalemia at present. - resolved (6) Cannabis abuse: 06/09 -as patient psychosis improves, provide psychoeducation regarding the risks of hallucinogen use, including destabilization of bipolar illness and worsening of psychotic symptoms. -Avoid prescription of controlled substances given the high risk of abuse/misuse/negative outcomes. -Refer for outpatient dual diagnosis treatment. 06/11 -Brief intervention was offered and accepted. Intervention was greater than 5 min in length. - Pt is agreeable to outpatient D&A counseling, but unwilling to consider inpatient rehab or an IOP Brief interventions include: 1. Assess Readiness to Quit, 2. Advise: Help Patient to Reduce or Abstain from abusable substances, 3. Agree: Set Specific, Feasible Goals, 4. Assist: Anticipate barriers, Problem-Solving Solutions. Social work to 5. Arrange: Referrals to appropriate treatment. Summary of intervention: The patient is in contemplation stage with regards to transtheoretical model of change. The patient is advised to decrease substance abuse due to mood altering effects and risk of interactions with prescription medications. The patient was advised of recommendations for abstinence from abusable substance and to attend substance abuse treatment at discharge, and will be provided with recovery materials to continue to education self on how to cope with their condition without drinking. (7) Methamphetamine abuse: 06/09 -as above, continue to provide education and review recommendations for abstinence from controlled substances and dual diagnosis treatment after discharge from the hospital. 06/11 - Substance abuse intervention using motivational interviewing as above - Pt is interested in D&A counseling on an outpatient basis 06/12 -As above, today we focused primarily on considering the patient's various relapse triggers and in further developing and reinforcing her plan for maintaining abstinence from all drugs in the community. Inventory Assets Strengths: Supportive family. Willing to accept treatment. Able to correctly state her given diagnoses. History of favorable response to psychiatric medications and other forms of treatment Needs: Improved adherence with medications. Improved mood regulation. Resolution of paranoia. Avoidance of dyscontrolled, agitated behaviors. Risk Factors Assessment Male: No : No Do You Have Access To A Gun?: No Mental Health Diagnoses: Yes Substance Use Disorders: Yes Previous Attempt: No (The patient tells us that she does not have any history of previous suicide attempts, but she does acknowledge a history of intentional self-injurious behaviors in the form of cutting, and cut both wrists prior to presentation.) Previous Psychiatric Hospitalization: Yes Hopelessness: No Smoker: Yes Protective Factors Assessment : No (The patient tells us that she is technically still , but is and in the process of filing for divorce. She lives alone.) Responsible for Young Children: No (The patient reports that she has never had children.) Employed: No (fired from job at [employer] yesterday) Stable Relationships: Yes Supportive Family: Yes Good Rapport with Provider: No Absence of Any Risk Factors Above: No Interval History Identifying Information GARY DOVERAXEL is a 24-year-old F who currently lives in alone in [place]. She reports that she has a history of bipolar disorder, ADHD, and OCD. There is also history of stimulant abuse. She was admitted on 0 12:59 on a 302 involuntary commitment because of agitated, dyscontrolled, and physically aggressive behavior coupled with reports of severe depression and paranoia. Chief Complaint "Oh, I'm ok." Review of Systems Notes Constitutional: reports fatigue, though admittedly improved from yesterday Cardiovascular: denied Respiratory: denied Gastrointestinal: denied Neurological: denied Psychiatric: denies symptoms other than stated above Total of at least 10 systems reviewed, pertinent positives as above and in HPI. Sleep Information Total Hours of Sleep: 7.5 Meal Information Percent Meal Consumed - Breakfast: 90 Percent Meal Consumed - Lunch: 75 Percent Meal Consumed - Dinner: 100 Nutrition Comment: allowed to rest Subjective Subjective Patient was seen & assessed and interval progress reviewed with nursing and social work. Staff report the patient was more irritable last evening, refusing groups without clear explanation. She also demonstrated limited motivation to meet with her case consultant and only participated in a brief conversation. Pt was seen today to assess progress since admission. Pt states she is "ok" this morning. She admits that she is not feeling as tired today. She reports motivation for her family meeting this morning and is hopeful to discuss with her parents ways to ensure she can get to her appointments with regard to transportation and scheduling. Pt states she will set an alarm to remind her to take her medications, and feels she will not need support with this at this time. Pt states she was unwilling to meet with her case consultant as she reports she told him she preferred to work with a female. Pt does verbalize willingness to work with the male case consultant until they are able to make this rearrangement. Pt reports ongoing satisfaction with olanzapine - declining further titration as she prefers to have the prn available if/when she needs it. Pt reports she was irritable last evening as her nap lasted longer than intended. She is denying other needs or concerns today. Physical Exam Psychiatric Orientation: alert, oriented x 3 and cooperative (though with an irritable edge) Apperance: appropriately dressed and appropriately groomed Eye Contact: good eye contact Motor Behavior: no abnormal motor movements (observed while laying in bed) Speech: normal rate/rhythm/volume of speech Affect: euthymic affect (though with a mildly irritable edge - no directed anywhere specificially) and mood congruent with affect Mood: no depressed mood and no anxious mood "I'm ok" Thought Process: goal directed thought process, clear/coherent thought process and thought association intact Thought Content: reality based without delusions; no hopelessness Suicidal Thoughts: denies suicidal thoughts and denies suicidal intent Homicidal Thoughts: denies homicidal thoughts Hallucinations: no auditory hallucinations and no visual hallucinations Cognition: attention grossly intact and language grossly intact Insight: + fair insight Judgement: + fair judgement Vital Signs (Past 24 Hours) Last Vital Signs Temp 36.8 C 06/14/19 06:54 Pulse 70 06/14/19 06:55 Resp 16 06/14/19 06:54 BP 115/77 06/14/19 06:55 Pulse Ox 99 06/06/19 13:29 Results & Data ([facility]) Current Inpatient Medications Current Inpatient Medications: Current Inpatient Medications Acetaminophen (Tylenol) 650 mg PO Q4H PRN PRN Reason: Headache or Minor Fever Stop: 07/06/19 17:01 Last Admin: 06/13/19 20:00 Dose: 650 mg Documented by: Al Hydrox/Mg Hydrox/Simethicone (Maalox) 30 ml PO Q4H PRN PRN Reason: GI Upset Stop: 07/06/19 17:01 Benztropine Mesylate (Cogentin) 0.5 mg PO Q4 PRN PRN Reason: Muscle Spasm Stop: 07/07/19 16:06 Last Admin: 06/12/19 08:58 Dose: 0.5 mg Documented by: Bismuth Subsalicylate (Kaopectate) 15 ml PO PRN PRN PRN Reason: Loose Stool Stop: 07/06/19 17:01 Last Admin: 06/13/19 10:08 Dose: 15 ml Documented by: Hydroxyzine HCl (Vistaril) 25 mg PO Q6H PRN PRN Reason: Anxiety Stop: 07/10/19 12:28 Last Admin: 06/12/19 19:22 Dose: 25 mg Documented by: Magnesium Hydroxide (Milk Of Magnesia) 30 ml PO DAILY PRN PRN Reason: Constipation Stop: 07/06/19 17:01 Nicotine Polacrilex (Nicorette 2mg) 1 piece MT PRN PRN PRN Reason: Nicotine Withdrawal Stop: 07/06/19 17:01 Olanzapine (Zyprexa Zydis Od) 5 mg PO Q6 PRN PRN Reason: Anxiety/Agitation Stop: 07/07/19 16:07 Last Admin: 06/12/19 17:24 Dose: 5 mg Documented by: Olanzapine (Zyprexa) 10 mg IM Q6 PRN PRN Reason: psychosis or refusal of PO med Stop: 07/09/19 17:59 Olanzapine (Zyprexa Zydis Od) 5 mg PO QAM JENNIFER Stop: 07/12/19 08:59 Last Admin: 06/14/19 07:44 Dose: 5 mg Documented by: Olanzapine (Zyprexa Zydis Od) 10 mg PO HS JENNIFER Stop: 07/11/19 21:59 Last Admin: 06/13/19 19:59 Dose: 10 mg Documented by: Quetiapine Fumarate (Seroquel) 50 mg PO Q4H PRN PRN Reason: psychosis Stop: 07/10/19 12:27 Last Admin: 06/10/19 12:44 Dose: 50 mg Documented by: Sodium Chloride (Riley Nasal) 1 - 2 sprays NA PRN PRN PRN Reason: Nasal Dryness/Congestion Stop: 07/06/19 17:01 Mental Health & Subst Abuse Tx Psychiatrist [facility] Date of Appointment with Psychiatrist: 07/04/19 Time of Appointment with Psychiatrist: 1:00 p.m. Psychiatric Appointment Comment: [phone] [place] [address] Therapist Name of Therapist: [facility] Alisa Ramirez LCSW Therapist's Date of Therapist Appointment: 06/18/19 Time of Therapist Appointment: 12:00 p.m. Therapy Appointment Comment: [phone], [facility] [address], [place] Molecular Biology Professor Name of Molecular Biology Professor: Choco Lopez Phone Number for Molecular Biology Professor: [phone] Case Management Appointment Comment: Pablo will call you Sunday to touch base Post Discharge Appointments Primary Care Physician Name Of Family Doctor: [facility] Time of Appointment with PCP: Please follow up as needed Provider Appointment Comment: [phone], [facility] [address], [place] Contact Information Discharge Discharge Address: [address] [place] [address], [place] [address] (1) Psychosis Psychosis type: unspecified psychosis type Qualified Code(s): F29 - Unspecified psychosis not due to a substance or known physiological condition
[2019-06-14] MEDS: ACETAMINOPHEN 325 MG TAB PO PRN (09:09)
[2019-06-14] MEDS: OLANZAPINE ZYDIS 10 MG ORALLY DIS. TAB PO SCH (19:57)
[2019-06-14] MEDS: lamoTRIgine 25 MG TAB PO SCH (19:58)
--- NOTE | 2019-06-15 08:10 | Psychiatric Progress Note ---
Date of Service June 15, 2019 Impression / Recommendations Impression 24-year-old single female with a history of bipolar disorder, borderline personality disorder, substance abuse (methamphetamine and cannabis), treatment noncompliance, and remote history of ODD, IED, and ADHD who was brought to the emergency room by her mother for paranoid and disorganized behavior and self injury, having cut both wrists on the day of presentation. She eloped from the ER, was running in the parking lot naked, and was so agitated that she required restraints and IM medications. She is disorganized, paranoid, and hallucinating, has been extremely restless and unable to tolerate groups or assessments, and although she initially agreed to retrial of Abilify (hx of Maintena) and Lamictal, she only accepted 2 doses before refusing to continue, then agreed to a Seroquel trial 06/07, but refused titration of the medication to appropriate doses. 303 was granted on 06/10/2019 and patient was started on olanzapine. 2-physician opinions for medications over objection were rendered, due to the severity of her symptoms and inability to maintain behavioral control or participate in treatment - though patient has been compliant with scheduled oral medications. Patient has been agreeable with taking her prescribed olanzapine, even requesting prn dosing at times. Pt has been more irritable and labile in the last 1-2 days. Family meeting was held with parents to discuss aftercare and safety planning. Without adequate outpatient supports and discharge plan the patient remains at high risk of harm to self or others or relapse back to detrimental substance abuse habits. (1) Psychosis: 06/06/19 -The patient describes herself as being "paranoid." Although she has difficulty explaining what she means by the use of the word "paranoia," and while she does not reveal any tracie delusional believes, she does say that she has difficulty trusting other people, and often doubts the veracity and intentions of other people. -The patient adds that she feels that her paranoia is brought on by a chronic feeling of anxiety, which she describes as a sense that "something bad is about to happen," even though she is unable to recognize what that might be. -Because the patient has reported that her paranoia has responded favorably to aripiprazole in the past, we will begin the aripiprazole 10 mg daily and titrate as indicated. -The patient is also been referred for individual, group and activity therapies and will be encouraged to attend as a way of developing improved individual coping strategies. 06/07/19--continue Abilify 10 mg today, may require additional Haldol prn. Consider MCCLAIN. 06/07--d/c Abilify, Seroquel 50 mg po qhs with plan to titrate, Zyprexa prn as ordered in interim. 06/08--Seroquel to 100 mg this hs, currently states she will refuse, Zyprexa dissolvable PO prn as ordered. Given level of agitation this am feel elopement precautions are warranted and will order Zyprexa 10 mg IM in case of emergency restraint and ultimately this may need to be given in place of PO meds if starts refusing consistently. Given presentation to ED and hospital course thus far, it is my medical opinion that she will fail to show improvement without forced antipsychotic medication for mood stabilization. She is unable to care for basic needs and has exhibited significant level of impulsivity that or serious physical disability would likely occur within 30 days without these interventions. Case discussed with head gauge unit operator Dr. Murray who will do second opinion as needed. 06/09 -patient refusing all antipsychotic medication yesterday, although eventually accepted a lower dose of quetiapine (50 mg). Unfortunately, this is not an antipsychotic dose and is insufficient to manage her psychotic symptoms, and she is not willing to take oral medications regularly. I agree with medications over objection, as she has a history of bipolar disorder with mood and psychotic symptoms requiring mood stabilizing and antipsychotic medication, and her symptoms are unlikely to improve without medication. Ongoing symptoms place her at risk of harm to both herself and others due to her psychosis, self injury, inability to obtain adequate nutrition and hydration without the care and assistance of others, and agitation/erratic behavior. She did demonstrate some improvement after receiving haloperidol in the ER. Discontinue quetiapine, as she is not allowing dose escalation to antipsychotic doses that would adequately treat symptoms. Start olanzapine 5 mg twice daily with IM backup for refusal, as she has received this medication during this hospitalization and tolerated it. -Reviewed fasting labs for monitoring on an atypical antipsychotic: Cholesterol levels and fasting glucose within normal limits. 06/10 - Pt has been compliant with scheduled oral olanzapine as offered. She is interested in further titration and will be ordered 5mg qAM and 10mg qHS starting this evening. She does appear to be responding rather well to the medication. - 2-physician opinions have been rendered for medications over objection should this be required - Involve parents in a family meeting when patient is appropriate - pt verbalizing request to wait a few more days for this as she does not yet feel ready - Refer for outpatient psychiatric treatment 06/11 - Continue current dosage of olanzapine - pt did receive total of 20mg yesterday (as she requested a 5mg prn dose) - consider need for further titration of scheduled dosing - Will need to schedule family meeting with parents in order to discuss safety and discharge planning - Pt declining recommendation for inpatient D&A rehabilitation at discharge - she is agreeable with outpatient dual diagnosis therapy and referral for a psychiatric prescriber and employment evaluator/case manager 06/12 -The patient seems to be responding quite well to the olanzapine. She notes that she feels that she is tolerating it well, notes no significant side effects, and agrees that this is "a very good medicine for [her]." -There is no further evidence of any psychotic features. Of note today is the fact the patient says that she is aware that she was experiencing symptoms of paranoia prior to admission and during the initial portion of the stay. However, she says that, at least in part, the symptoms were probably attributable to the abuse of, and withdrawal from, methamphetamine. She notes that, in the past, she has had similar symptoms while using or withdrawing from stimulants. 06/13 - Psychosis continues to resolve with ongoing use of olanzapine - no present delusions, hallucinations or significant paranoia. Pt does present with continued irritability though this may be better explained by her bipolar disorder diagnosis at this time - See treatment plan for bipolar disorder for ongoing treatment considerations (2) Aggressive behavior: 06/06 -The patient's behavior in the emergency room was extremely agitated and largely [id number]. At one point she required mechanical restraints in order to preserve her safety and the safety of others around her. She also acknowledges that, in the past, she has "defended herself" [physically] when necessary when threatened, and this is within the context of her telling us that she feels "paranoid." However, the patient also tells us that she is having no thoughts currently of causing physical harm to anyone and that she will let us know if she begins to feel unsafe or threatened on the unit. --continue medically necessary private room due to lability. 06/08--elopement precautions and MNPR 06/09--continue private room and elopement precautions. Start medications over objection as above. Excuse from groups until she is in better behavioral control. 06/10--will continue MNPR for now, though patient has demonstrated a rather significant improvement in behavior today 06/12 --the patient's behavior is now pleasant and appropriate. There is been no further aggressive behaviors. 06/14-- although patient is not overtly aggressive, she continues to be labile and demonstrates episodes of considerable irritability. Will maintain MNPR for now (3) Bipolar disorder: 06/06 -Both the patient and her mother report that she has a history of responding favorably to lamotrigine as a mood stabilizer, as well as to aripiprazole, also has a mood stabilizer and is an antipsychotic. The issue, as noted above has been that the patient is often nonadherent with her outpatient medications and other forms of treatment. -Lamotrigine 25 mg daily has been ordered. Material risks and anticipated benefits of lamotrigine have been reviewed with the patient. Specific risks reviewed with the patient included, but were not limited to, risk of Nicolas-Ismael syndrome and a rash. The patient tells us that she has no history of having any difficulty or side effects associated with lamotrigine in the past. The plan will be to titrate lamotrigine at the standard rate. -Aripiprazole 10 mg daily has been ordered and will be titrated as indicated. The patient reports that she has previously taken aripiprazole. Material risks and anticipated benefits of aripiprazole reviewed with the patient, and she indicates that she has had no problem or side effects with aripiprazole in the past. -Patient reports that she has difficulty sleeping, possibly as the result of her bipolar disorder or as a result of her anxiety. In the past, she has responded favorably to trazodone 50 mg at bedtime as needed for sleep, and this medication at this dose has been ordered. 06/09 -Patient has been unwilling to sign releases to get previous records. -Family meeting once she is in better behavioral control. -She will need referrals for outpatient treatment. 06/10 - 06/11 - Treatment as above - pt reports identifying with the diagnosis of bipolar disorder as it relates to her mood patterns in the past - Continue olanzapine 5mg qAM and 10mg qHS at this time - Continue to offer education on the diagnosis and need for ongoing outpatient treatment 06/12 -The patient's considerable improvement in mood stabilization is noted. Because of the patient's history of frequent psychiatric and drug relapses, with a co-occurring history of multiple psychiatric hospitalizations, we are placing special effort in coordinating aftercare with the patient, her parents (her primary support persons), and her outpatient providers in order to help assure that the patient is able to tolerate the stress of community reentry and is able to enjoy continued and sustained progress towards full recovery. -A meeting to coordinate care with the patient's parents has been scheduled for tomorrow. 06/13 - Continue treatment plan as outlined above - prn olanzapine 5mg remains available, patient declining to increase her scheduled dose of the medication - Family meeting scheduled for this morning with parents - will need to discuss housing plans, treatment compliance, and proximity to baseline 06/14 - Continue current treatment regimen - olanzapine 5mg qAM and 10mg qHS in combination with lamotrigine 25mg qHS - Pt continues to demonstrate episodes of extreme lability and irritability - While some of this irritability may be related to stressors within the hospital setting, she is not considered stable for discharge at this time (4) Dehydration: 06/06-Patient acknowledges that her oral intake has been poor recently. We will encourage fluids and adequate nutrition during the stay. --resolved. (5) Hypokalemia: 06/06 -We will encourage adequate nutrition during the stay. -Potassium chloride supplement 20 mEq has been ordered, and her serum potassium will be rechecked on 06/07/2019. -The patient is not exhibiting any symptoms of hypokalemia at present. - resolved (6) Cannabis abuse: 06/09 -as patient psychosis improves, provide psychoeducation regarding the risks of hallucinogen use, including destabilization of bipolar illness and worsening of psychotic symptoms. -Avoid prescription of controlled substances given the high risk of abuse/misuse/negative outcomes. -Refer for outpatient dual diagnosis treatment. 06/11 -Brief intervention was offered and accepted. Intervention was greater than 5 min in length. - Pt is agreeable to outpatient D&A counseling, but unwilling to consider inpatient rehab or an IOP Brief interventions include: 1. Assess Readiness to Quit, 2. Advise: Help Patient to Reduce or Abstain from abusable substances, 3. Agree: Set Specific, Feasible Goals, 4. Assist: Anticipate barriers, Problem-Solving Solutions. Social work to 5. Arrange: Referrals to appropriate treatment. Summary of intervention: The patient is in contemplation stage with regards to transtheoretical model of change. The patient is advised to decrease substance abuse due to mood altering effects and risk of interactions with prescription medications. The patient was advised of recommendations for abstinence from abusable substance and to attend substance abuse treatment at discharge, and will be provided with recovery materials to continue to education self on how to cope with their condition without drinking. 06/14 - Will refer to [facility] Sunday for outpatient D&A counseling (7) Methamphetamine abuse: 06/09 -as above, continue to provide education and review recommendations for abstinence from controlled substances and dual diagnosis treatment after discharge from the hospital. 06/11 - Substance abuse intervention using motivational interviewing as above - Pt is interested in D&A counseling on an outpatient basis 06/12 -As above, today we focused primarily on considering the patient's various relapse triggers and in further developing and reinforcing her plan for maintaining abstinence from all drugs in the community. 06/14 - Will refer to [facility] on Sunday for outpatient D&A counseling Inventory Assets Strengths: Supportive family. Willing to accept treatment. Able to correctly state her given diagnoses. History of favorable response to psychiatric medications and other forms of treatment Needs: Improved adherence with medications. Improved mood regulation. Resolution of paranoia. Avoidance of dyscontrolled, agitated behaviors. Risk Factors Assessment Male: No : No Do You Have Access To A Gun?: No Mental Health Diagnoses: Yes Substance Use Disorders: Yes Previous Attempt: No (The patient tells us that she does not have any history of previous suicide attempts, but she does acknowledge a history of intentional self-injurious behaviors in the form of cutting, and cut both wrists prior to presentation.) Previous Psychiatric Hospitalization: Yes Hopelessness: No Smoker: Yes Protective Factors Assessment : No (The patient tells us that she is technically still , but is and in the process of filing for divorce. She lives alone.) Responsible for Young Children: No (The patient reports that she has never had madeleine li.) Employed: No (fired from job at [employer] yesterday) Stable Relationships: Yes Supportive Family: Yes Good Rapport with Provider: No Absence of Any Risk Factors Above: No Interval History Identifying Information GARY YANES is a 24-year-old F who currently lives in alone in [place]. She reports that she has a history of bipolar disorder, ADHD, and OCD. There is also history of stimulant abuse. She was admitted on 06/06/19 12:59 on a 302 involuntary commitment because of agitated, dyscontrolled, and physically aggressive behavior coupled with reports of severe depression and paranoia. Chief Complaint "I'm just, so irritated!" Review of Systems Notes Constitutional: denied Cardiovascular: denied Respiratory: denied Gastrointestinal: denied Neurological: denied Psychiatric: denies symptoms other than stated above Total of at least 10 systems reviewed, pertinent positives as above and in HPI. Sleep Information Total Hours of Sleep: 7 Meal Information Percent Meal Consumed - Breakfast: 100 Percent Meal Consumed - Lunch: 75 Percent Meal Consumed - Dinner: 60 Nutrition Comment: allowed to rest Subjective Subjective Patient was seen & assessed and interval progress reviewed with nursing and so cial work. Staff report the patient has continued to be more irritable. She continues to demonstrate a low tolerance for stress, but has been appropriately managing her irritability by retreating to her room or performing distraction techniques. Pt was seen today to assess progress since admission. Pt presented to the nurse's station demanding explanation as to why she was not given prn olanzapine when she asked last evening. Pt became tearful and left the nurse's station before response could be provided. This provider followed up with the patient after a few minutes to discuss further. Pt remained tearful and irritable, stating "I'm so annoyed. I'm just going to stay in my room and work on what I need to do." Pt states she is upset that she was not provided with a prn dose of olanzapine last evening, stating "you told me I could use it when I'm feeling some sort of way, and I was feeling some sort of way..." This provider explained that the time she asked for a prn dose was rather close to the time she was to receive her normal bedtime dose of the medication. Pt did report understanding of this, though still reports irritability. Pt stated she wanted to be left alone and denied other needs or concerns prior to this provider leaving the room. Pt was observed later in the day to be processing her thoughts with staff, continuing to demonstrate ability to appropriate seek help for the irritability and lability on the unit. Physical Exam Psychiatric Orientation: alert and oriented x 3 Apperance: appropriately dressed and appropriately groomed Eye Contact: + poor eye contact (avoiding direct eye contact) Motor Behavior: no abnormal motor movements Speech: + loud speech (irritable tone) Affect: + labile affect and + irritable affect Mood: + angry mood ("I'm so annoyed" and "I'm just so irritated") Thought Process: goal directed thought process, clear/coherent thought process and thought association intact Thought Content: reality based without delusions; no hopelessness Suicidal Thoughts: denies suicidal thoughts and denies suicidal intent Homicidal Thoughts: denies homicidal thoughts Hallucinations: no auditory hallucinations and no visual hallucinations Cognition: attention grossly intact and language grossly intact Insight: + impaired insight Judgement: + impaired judgement Vital Signs (Past 24 Hours) Last Vital Signs Temp 36.8 C 06/15/19 06:54 Pulse 58 L 06/15/19 06:54 Resp 16 06/15/19 06:54 BP 106/65 06/15/19 06:54 Pulse Ox 99 06/06/19 13:29 Results & Data ([facility]) Current Inpatient Medications Current Inpatient Medications: Current Inpatient Medications Acetaminophen (Tylenol) 650 mg PO Q4H PRN PRN Reason: Headache or Minor Fever Stop: 07/06/19 17:01 Last Admin: 06/14/19 09:09 Dose: 650 mg Documented by: Al Hydrox/Mg Hydrox/Simethicone (Maalox) 30 ml PO Q4H PRN PRN Reason: GI Upset Stop: 07/06/19 17:01 Benztropine Mesylate (Cogentin) 0.5 mg PO Q4 PRN PRN Reason: Muscle Spasm Stop: 07/07/19 16:06 Last Admin: 06/12/19 08:58 Dose: 0.5 mg Documented by: Bismuth Subsalicylate (Kaopectate) 15 ml PO PRN PRN PRN Reason: Loose Stool Stop: 07/06/19 17:01 Last Admin: 06/13/19 10:08 Dose: 15 ml Documented by: Hydroxyzine HCl (Vistaril) 25 mg PO Q6H PRN PRN Reason: Anxiety Stop: 07/10/19 12:28 Last Admin: 06/12/19 19:22 Dose: 25 mg Documented by: Lamotrigine (Lamictal) 25 mg PO HS [facility] Stop: 07/14/19 21:59 Last Admin: 06/14/19 19:58 Dose: 25 mg Documented by: Magnesium Hydroxide (Milk Of Magnesia) 30 ml PO DAILY PRN PRN Reason: Constipation Stop: 07/06/19 17:01 Nicotine Polacrilex (Nicorette 2mg) 1 piece MT PRN PRN PRN Reason: Nicotine Withdrawal Stop: 07/06/19 17:01 Olanzapine (Zyprexa Zydis Od) 5 mg PO Q6 PRN PRN Reason: Anxiety/Agitation Stop: 07/07/19 16:07 Last Admin: 06/12/19 17:24 Dose: 5 mg Documented by: Olanzapine (Zyprexa) 10 mg IM Q6 PRN PRN Reason: psychosis or refusal of PO med Stop: 07/09/19 17:59 Olanzapine (Zyprexa Zydis Od) 5 mg PO QAM [facility] Stop: 07/12/19 08:59 Last Admin: 06/14/19 07:44 Dose: 5 mg Documented by: Olanzapine (Zyprexa Zydis Od) 10 mg PO HS [facility] Stop: 07/11/19 21:59 Last Admin: 06/14/19 19:57 Dose: 10 mg Documented by: Quetiapine Fumarate (Seroquel) 50 mg PO Q4H PRN PRN Reason: psychosis Stop: 07/10/19 12:27 Last Admin: 06/10/19 12:44 Dose: 50 mg Documented by: Sodium Chloride ([place] Nasal) 1 - 2 sprays NA PRN PRN PRN Reason: Nasal Dryness/Congestion Stop: 07/06/19 17:01 Mental Health & Subst Abuse Tx Psychiatrist Name of Psychiatrist: Bryson Ray Psychiatrist's Date of Appointment with Psychiatrist: 07/04/19 Time of Appointment with Psychiatrist: 1:00 p.m. Psychiatric Appointment Comment: [id number] [facility] [place] [address] Therapist Name of Therapist: [facility] - Lashonda Ramirez LCSW Therapist's Date of Therapist Appointment: 06/18/19 Time of Therapist Appointment: 12:00 p.m. Therapy Appointment Comment: [phone], [address], [place] Assembly Technician Name of Assembly Technician: Choco Lopez Phone Number for Assembly Technician: [phone] Case Management Appointment Comment: Pablo will call you Sunday to touch base Post Discharge Appointments Primary Care Physician Name Of Family Doctor: [facility] Time of Appointment with PCP: Please follow up as needed Provider Appointment Comment: [id number], [address], [place] Contact Information Discharge Discharge [address]: [address] [place] [address], [address] [place] [address] (1) Psychosis Psychosis type: unspecified psychosis type Qualified Code(s): F29 - Unspecified psychosis not due to a substance or known physiological condition
[2019-06-15] MEDS: OLANZAPINE ZYDIS 5 MG ORALLY DIS. TAB PO SCH (08:55)
[2019-06-15] MEDS: ACETAMINOPHEN 325 MG TAB PO PRN (09:25)
[2019-06-15] MEDS: OLANZAPINE ZYDIS 5 MG ORALLY DIS. TAB PO PRN (13:35)
[2019-06-15] MEDS: QUETIAPINE FUMARATE 25 MG TABLET PO PRN (19:31)
[2019-06-15] MEDS: OLANZAPINE ZYDIS 10 MG ORALLY DIS. TAB PO SCH (20:25)
[2019-06-15] MEDS: lamoTRIgine 25 MG TAB PO SCH (20:25)
[2019-06-16] MEDS: OLANZAPINE ZYDIS 5 MG ORALLY DIS. TAB PO SCH (08:01)
[2019-06-16] MEDS: ACETAMINOPHEN 325 MG TAB PO PRN (10:01)
[2019-06-16] MEDS: OLANZAPINE ZYDIS 5 MG ORALLY DIS. TAB PO PRN (13:24)
--- NOTE | 2019-06-16 14:59 | Psychiatric Progress Note ---
Date of Service June 16, 2019 Impression / Recommendations Impression 24-year-old single female with a history of bipolar disorder, borderline personality disorder, substance abuse (methamphetamine and cannabis), treatment noncompliance, and remote history of ODD, IED, and ADHD who was brought to the emergency room by her mother for paranoid and disorganized behavior and self injury, having cut both wrists on the day of presentation. She eloped from the ER, was running in the parking lot naked, and was so agitated that she required restraints and IM medications. She is disorganized, paranoid, and hallucinating, has been extremely restless and unable to tolerate groups or assessments, and although she initially agreed to retrial of Abilify (hx of Maintena) and Lamictal, she only accepted 2 doses before refusing to continue, then agreed to a Seroquel trial 06/07, but refused titration of the medication to appropriate doses. 303 was granted on 06/10/2019 and patient was started on olanzapine. 2-physician opinions for medications over objection were rendered, due to the severity of her symptoms and inability to maintain behavioral control or participate in treatment - though patient has been compliant with scheduled oral medications. (1) Paranoia: 06/06/19 -The patient describes herself as being "paranoid." Although she has difficulty explaining what she means by the use of the word "paranoia," and while she does not reveal any tracie delusional believes, she does say that she has difficulty trusting other people, and often doubts the veracity and intentions of other people. -The patient adds that she feels that her paranoia is brought on by a chronic feeling of anxiety, which she describes as a sense that "something bad is about to happen," even though she is unable to recognize what that might be. -Because the patient has reported that her paranoia has responded favorably to aripiprazole in the past, we will begin the aripiprazole 10 mg daily and titrate as indicated. -The patient is also been referred for individual, group and activity therapies and will be encouraged to attend as a way of developing improved individual coping strategies. 06/07/19--continue Abilify 10 mg today, may require additional Haldol prn. Consider MCCLAIN. 06/07--d/c Abilify, Seroquel 50 mg po qhs with plan to titrate, Zyprexa prn as ordered in interim. 06/08--Seroquel to 100 mg this hs, currently states she will refuse, Zyprexa d issolvable PO prn as ordered. Given level of agitation this am feel elopement precautions are warranted and will order Zyprexa 10 mg IM in case of emergency restraint and ultimately this may need to be given in place of PO meds if starts refusing consistently. Given presentation to ED and hospital course thus far, it is my medical opinion that she will fail to show improvement without forced antipsychotic medication for mood stabilization. She is unable to care for basic needs and has exhibited significant level of impulsivity that or serious physical disability would likely occur within 30 days without these interventions. Case discussed with unit secretary Dr. Murray who will do second opinion as needed. (2) Aggressive behavior: 06/06 -The patient's behavior in the emergency room was extremely agitated and largely [id number]. At one point she required mechanical restraints in order to preserve her safety and the safety of others around her. She also acknowledges that, in the past, she has "defended herself" [physically] when necessary when threatened, and this is within the context of her telling us that she feels "paranoid." However, the patient also tells us that she is having no thoughts currently of causing physical harm to anyone and that she will let us know if she begins to feel unsafe or threatened on the unit. --continue medically necessary private room due to lability. 06/08--elopement precautions and MNPR (3) Dehydration: 06/06 -Patient acknowledges that her oral intake has been poor recently. We will encourage fluids and adequate nutrition during the stay. --resolved. (4) Hypokalemia: 06/06 -We will encourage adequate nutrition during the stay. -Potassium chloride supplement 20 mEq has been ordered, and her serum potassium will be rechecked on 06/07/2019. -The patient is not exhibiting any symptoms of hypokalemia at present. resolved (5) Bipolar disorder: 06/06 -Both the patient and her mother report that she has a history of responding favorably to lamotrigine as a mood stabilizer, as well as to aripiprazole, also has a mood stabilizer and is an antipsychotic. The issue, as noted above has been that the patient is often nonadherent with her outpatient medications and other forms of treatment. -Lamotrigine 25 mg daily has been ordered. Material risks and anticipated benefits of lamotrigine have been reviewed with the patient. Specific risks re viewed with the patient included, but were not limited to, risk of Nicolas- Ismael syndrome and a rash. The patient tells us that she has no history of having any difficulty or side effects associated with lamotrigine in the past. The plan will be to titrate lamotrigine at the standard rate. -Aripiprazole 10 mg daily has been ordered and will be titrated as indicated. The patient reports that she has previously taken aripiprazole. Material risks and anticipated benefits of aripiprazole reviewed with the patient, and she indicates that she has had no problem or side effects with aripiprazole in the past. -Patient reports that she has difficulty sleeping, possibly as the result of her bipolar disorder or as a result of her anxiety. In the past, she has responded favorably to trazodone 50 mg at bedtime as needed for sleep, and this medication at this dose has been ordered. Inventory Assets Strengths: Supportive family. Willing to accept treatment. Able to correctly state her given diagnoses. History of favorable response to psychiatric medications and other forms of treatment Needs: Improved adherence with medications. Improved mood regulation. Resolution of paranoia. Avoidance of dyscontrolled, agitated behaviors. Risk Factors Assessment Male: No : No Do You Have Access To A Gun?: No Mental Health Diagnoses: Yes Substance Use Disorders: Yes Previous Attempt: No (The patient tells us that she does not have any history of previous suicide attempts, but she does acknowledge a history of intentional self-injurious behaviors in the form of cutting, and cut both wrists prior to presentation.) Previous Psychiatric Hospitalization: Yes Hopelessness: No Smoker: Yes Protective Factors Assessment : No (The patient tells us that she is technically still , but is and in the process of filing for divorce. She lives alone.) Responsible for Young Children: No (The patient reports that she has never had children.) Employed: No (fired from job at [employer] yesterday) Stable Relationships: Yes Supportive Family: Yes Good Rapport with Provider: No Absence of Any Risk Factors Above: No Interval History Identifying Information GARY YANES is a 24-year-old F who currently lives in alone in [place]. She reports that she has a history of bipolar disorder, ADHD, and OCD. There is also history of stimulant abuse. She was admitted on 06/06/19 12:59 on a 302 involuntary commitment because of agitated, dyscontrolled, and physically aggressive behavior coupled with reports of severe depression and paranoia. Chief Complaint "I'm good, know that meth isn't good for me, I need an employment law attorney". Review of Systems Sleep Information Total Hours of Sleep: 9 Meal Information Percent Meal Consumed - Breakfast: 90 Percent Meal Consumed - Lunch: 100 Percent Meal Consumed - Dinner: 75 Nutrition Comment: allowed to rest Subjective Subjective Patient was seen & assessed and interval progress reviewed with treatment team. Patient required 2 prns last pm after a period of sobbing, she cannot identify a cause of her emotional lability. Elevated this am and pacing in hallways but redirectible. Had misplaced her bra and staff found in the trash. Reviewed outpatient plan and her weekend family sessions as will be staying with parents for emotional support for at least a few days upon transition from the hospital so she can change her phone numbers, etc. Mother states apartment is still is disarray, they plan to pay to have some carpet replaced. Mother travelling today to assist aunt. Reviewed patient's progress with mother by phone, reviewed inpatient and involuntary commitment criteria as patient is hoping to be discharged soon and we are nearing end of her stay. Physical Exam Psychiatric Orientation: alert Apperance: + disheveled Eye Contact: + fair eye contact Motor Behavior: no abnormal motor movements restless hyperverbal Affect: + elated affect Mood: no depressed mood Thought Process: linear/logical thought process and + concrete thought process Thought Content: reality based without delusions Suicidal Thoughts: denies suicidal thoughts Homicidal Thoughts: denies homicidal thoughts Hallucinations: no auditory hallucinations and no visual hallucinations Cognition: + attention not intact Estimated Intelligence: consistent with education level Insight: + limited insight (improved) Judgement: + limited judgement Vital Signs (Past 24 Hours) Last Vital Signs Temp 36.7 C 06/16/19 06:59 Pulse 61 06/16/19 06:59 Resp 16 06/16/19 06:59 BP 97/49 L 06/16/19 06:59 Pulse Ox 99 06/06/19 13:29 Results & Data ([facility]) Current Inpatient Medications Current Inpatient Medications: Current Inpatient Medications Acetaminophen (Tylenol) 650 mg PO Q4H PRN PRN Reason: Headache or Minor Fever Stop: 07/06/19 17:01 Last Admin: 06/16/19 10:01 Dose: 650 mg Documented by: Al Hydrox/Mg Hydrox/Simethicone (Maalox) 30 ml PO Q4H PRN PRN Reason: GI Upset Stop: 07/06/19 17:01 Benztropine Mesylate (Cogentin) 0.5 mg PO Q4 PRN PRN Reason: Muscle Spasm Stop: 07/07/19 16:06 Last Admin: 06/12/19 08:58 Dose: 0.5 mg Documented by: Bismuth Subsalicylate (Kaopectate) 15 ml PO PRN PRN PRN Reason: Loose Stool Stop: 07/06/19 17:01 Last Admin: 06/13/19 10:08 Dose: 15 ml Documented by: Hydroxyzine HCl (Vistaril) 25 mg PO Q6H PRN PRN Reason: Anxiety Stop: 07/10/19 12:28 Last Admin: 06/12/19 19:22 Dose: 25 mg Documented by: Lamotrigine (Lamictal) 25 mg PO HS JENNIFER Stop: 07/14/19 21:59 Last Admin: 06/15/19 20:25 Dose: 25 mg Documented by: Magnesium Hydroxide (Milk Of Magnesia) 30 ml PO DAILY PRN PRN Reason: Constipation Stop: 07/06/19 17:01 Nicotine Polacrilex (Nicorette 2mg) 1 piece MT PRN PRN PRN Reason: Nicotine Withdrawal Stop: 07/06/19 17:01 Olanzapine (Zyprexa Zydis Od) 5 mg PO Q6 PRN PRN Reason: Anxiety/Agitation Stop: 07/07/19 16:07 Last Admin: 06/16/19 13:24 Dose: 5 mg Documented by: Olanzapine (Zyprexa) 10 mg IM Q6 PRN PRN Reason: psychosis or refusal of PO med Stop: 07/09/19 17:59 Olanzapine (Zyprexa Zydis Od) 5 mg PO QAM JENNIFER Stop: 07/12/19 08:59 Last Admin: 06/16/19 08:01 Dose: 5 mg Documented by: Olanzapine (Zyprexa Zydis Od) 10 mg PO HS JENNIFER Stop: 07/11/19 21:59 Last Admin: 06/15/19 20:25 Dose: 10 mg Documented by: Quetiapine Fumarate (Seroquel) 50 mg PO Q4H PRN PRN Reason: psychosis Stop: 07/10/19 12:27 Last Admin: 06/15/19 19:31 Dose: 50 mg Documented by: Sodium Chloride ([employer] Nasal) 1 - 2 sprays NA PRN PRN PRN Reason: Nasal Dryness/Congestion Stop: 07/06/19 17:01 Mental Health & Subst Abuse Tx Psychiatrist Name of Psychiatrist: Bryson Ray Psychiatrist's Date of Appointment with Psychiatrist: 07/04/19 Time of Appointment with Psychiatrist: 1:00 p.m. Psychiatric Appointment Comment: [id number] [facility] [place] [address] Therapist Name of Therapist: [facility] - Lashonda Ramirez LCSW Therapist's Date of Therapist Appointment: 06/18/19 Time of Therapist Appointment: 12:00 p.m. Therapy Appointment Comment: [address] [facility] [address], [place] Sound Art Instructor Name of Sound Art Instructor: Choco Lopez Phone Number for Sound Art Instructor: [phone] Case Management Appointment Comment: A female case supervisor will follow up with you Post Discharge Appointments Primary Care Physician Name Of Family Doctor: [facility] Time of Appointment with PCP: Please follow up as needed Provider Appointment Comment: [phone], [address], [place] Contact Information Discharge Discharge Address: [address] [place] [address], [address] [place] [address]
[2019-06-16] MEDS: lamoTRIgine 25 MG TAB PO SCH (20:32)
[2019-06-16] MEDS: OLANZAPINE ZYDIS 10 MG ORALLY DIS. TAB PO SCH (20:32)
[2019-06-17] MEDS: OLANZAPINE ZYDIS 5 MG ORALLY DIS. TAB PO SCH (08:09)
[2019-06-17] MEDS: ACETAMINOPHEN 325 MG TAB PO PRN (08:27)
--- NOTE | 2019-06-17 08:55 | Discharge Summary ---
Date of Service June 17, 2019 History of Present Illness The patient is a 24 year old female who presented to the Emergency Room for a mental health evaluation for episodes of paranoia occurring for the past week. 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 The patient was brought to the emergency department, but eloped prior to be seen. Reportedly, was running without clothing through the parking lot in below freezing temperatures. The [place] police department was called and the patient was returned to the emergency department. Information provided by the patient's mother includes a report the patient has had mental health problems including bipolar disorder since she was a child. The mother states the patient has been hospitalized numerous times, most recently and most often at [place]. The patient mother also notes that the patient has been on a variety of medications, and, of these, lamotrigine seemed to be the most effective, although adherence with medications reportedly has always been an issue. The patient, herself, says that she feels that lamotrigine was helpful, and that she also feels that aripiprazole was helpful in stabilizing her mood and addressing what she refers to as her "paranoia." The patient also acknowledges that she does stop taking her psychiatric medications and further acknowledges that she had been off her psychiatric medications for some time. She notes that she had been taking Depakote, but felt that it did not help and she would prefer not to go back on that medication. The patient acknowledges that she is not currently seeing a mental health professional has not been in treatment recently. She also acknowledges that she has been using, and is using both marijuana and methamphetamines. She has variously reported her last use of methamphetamine is being 2 days ago, 4 days ago, and during her psychiatric admission assessment she said it had been 3 days ago. She has trouble estimating the use amount, and says that she usually uses it "when someone gives it to me or when I can afford it." The patient's mother adds that she went to a crisis center with the patient at the beginning of this week, but the patient refused to sign the patient not only refused to sign the necessary papers, she went on to rip them up and walked out. The patient's mom states the patient has a history of cutting, and the patient acknowledges that she sometimes superficially cuts herself with a sharp object in order to relieve stress. Very superficial abrasions on the patient's forearm are noted.. She states she went to the patient's apartment [facility] to bring her her TV back which the patient had been paranoid about the previous night. She states there was blood all over the patient's sheets. Physical Exam Mental Examination see admission H&P and day of discharge summary Vital Signs (Past 24 Hours) Last Vital Signs Temp 36.5 C 06/17/19 06:39 Pulse 62 06/17/19 06:39 Resp 18 06/17/19 06:39 BP 120/74 06/17/19 06:39 Pulse Ox 99 06/06/19 13:29 Principal Diagnosis bipolar I disorder, most recent episode manic Psychiatric Data see daily summary, in short she was restarted on lamictal with acute stabilization with Zyprexa which she tolerated well. She had a successful family meeting prior to discharge and was amenable to D&A treatment. Day of Discharge Assessment Pamela reports readiness for discharge and is expressing increase insight into her condition. She remains active with at times reactive mood but this does not appear to be related to ongoing christin or psychosis. Her paranoid delusions have been resolved for multiple days. She denies suicidal or homicidal ideation and no longer meets criteria for involuntary hospitalization. She does not want to sign in for additional treatment and at this point is stable for discharge to outpatient level of care, ie no longer meeting acute inpatient criteria. She is tolerating medication well, no EPS or akathisia is noted. Re-reviewed longer term risks associated with her medication and she verbalized understanding of the need for monitoring of metabolic side effects and TD. Agrees to hold Lamictal for rash and is aware of need to titrate slowly given risk of Juan's Ismael reaction. Reviewed that lamictal can have interactions with certain oral contraceptives should she resume them in the future. Transition of Care Transition Of Care Record: was reviewed with the patient Advance Directives Advance Directives Information Provided: Yes Advance Directives: No Mental Health Advance Directive: No Advance Directives on File: No Living Will: No Power of Preschool Disability Teacher: No Advance Directives Reason:: Declines as Mental Health Visit. Risk Factors Assessment Male: No : No Do You Have Access To A Gun?: No Mental Health Diagnoses: Yes Substance Use Disorders: Yes Previous Attempt: No (The patient tells us that she does not have any history of previous suicide attempts, but she does acknowledge a history of intentional self-injurious behaviors in the form of cutting, and cut both wrists prior to presentation.) Previous Psychiatric Hospitalization: Yes Hopelessness: No Smoker: Yes Protective Factors Assessment : No (The patient tells us that she is technically still , but is and in the process of filing for divorce. She lives alone.) Responsible for Young Children: No (The patient reports that she has never had children.) Employed: No (fired from job at [employer] yesterday) Stable Relationships: Yes Supportive Family: Yes Good Rapport with Provider: No Absence of Any Risk Factors Above: No Tobacco Cessation at Discharge Tobacco Cessation Medication Prescribed at Discharge: Offered & Pt Refused Total Time Total Time Spent: Greater Than 30 Minutes Total Time Includes: Examination of the patient, Discharge Planning and Medication Reconciliation Discharge Data Lab Results 06/05/19 06/05/19 06/05/19 20:53 20:53 20:53 WBC 10.48 RBC 4.32 Hgb 14.2 Hct 41.6 MCV 96.3 MCH 32.9 MCHC 34.1 RDW Std Deviation 44.0 RDW Coeff of Conner 12.6 Plt Count 296 MPV 10.4 Immature Gran % (Auto) 0.2 Neut % (Auto) 81.5 Lymph % (Auto) 10.9 Beadle % (Auto) 7.1 Eos % (Auto) 0.1 Baso % (Auto) 0.2 Immature Gran # (Auto) 0.02 Neut # (Auto) 8.55 H Lymph # (Auto) 1.14 L Beadle # (Auto) 0.74 H Eos # (Auto) 0.01 Baso # (Auto) 0.02 Sodium 140 Potassium 3.1 L Chloride 108 H Carbon Dioxide 18 L Anion Gap 14.0 H BUN 8 Creatinine 1.14 Est Cr Clr Drug Dosing 62.4 Est GFR ( Amer) 77.4 Est GFR (Non-Af Amer) 66.8 BUN/Creatinine Ratio 7.1 L Glucose 146 H Fasting Glucose Calcium 9.8 Total Bilirubin 0.4 AST 16 ALT 20 Alkaline Phosphatase 80 Total Protein 7.8 Albumin 4.3 Globulin 3.5 Albumin/Globulin Ratio 1.2 Triglycerides Cholesterol LDL Cholesterol, Calc VLDL Cholesterol, Calc HDL Cholesterol Cholesterol/HDL Ratio TSH 0.515 HCG, Qual Urine Color Urine Appearance Urine pH Ur Specific [place] Urine Protein Urine Glucose (UA) Urine Ketones Urine Blood Urine Nitrite Urine Bilirubin Urine Urobilinogen Ur Leukocyte Esterase Urine WBC (Auto) Urine RBC (Auto) U Hyaline Cast (Auto) U Epithel Cells (Auto) Urine Bacteria (Auto) Salicylates 5.0 Urine Opiates Screen Ur Methadone, Qual Acetaminophen 17 Urine Barbiturates Ur Phencyclidine (PCP) U Amphetamin/Meth Scrn MDMA (Ecstasy) Screen U Benzodiazepines Scrn Ur Cocaine Metabolite U Marijuana (THC) Screen U Marijuana THC Carboxy Drug Screen Comment Ethyl Alcohol mg/dL 06/05/19 06/05/19 06/05/19 20:53 20:53 22:55 WBC RBC Hgb Hct MCV MCH MCHC RDW Std Deviation RDW Coeff of Conner Plt Count MPV Immature Gran % (Auto) Neut % (Auto) Lymph % (Auto) Beadle % (Auto) Eos % (Auto) Baso % (Auto) Immature Gran # (Auto) Neut # (Auto) Lymph # (Auto) Beadle # (Auto) Eos # (Auto) Baso # (Auto) Sodium Potassium Chloride Carbon Dioxide Anion Gap BUN Creatinine Est Cr Clr Drug Dosing Est GFR ( Amer) Est GFR (Non-Af Amer) BUN/Creatinine Ratio Glucose Fasting Glucose Calcium Total Bilirubin AST ALT Alkaline Phosphatase Total Protein Albumin Globulin Albumin/Globulin Ratio Triglycerides Cholesterol LDL Cholesterol, Calc VLDL Cholesterol, Calc HDL Cholesterol Cholesterol/HDL Ratio TSH HCG, Qual Negative Urine Color Urine Appearance Urine pH Ur Specific [place] Urine Protein Urine Glucose (UA) Urine Ketones Urine Blood Urine Nitrite Urine Bilirubin Urine Urobilinogen Ur Leukocyte Esterase Urine WBC (Auto) Urine RBC (Auto) U Hyaline Cast (Auto) U Epithel Cells (Auto) Urine Bacteria (Auto) Salicylates Urine Opiates Screen Neg Ur Methadone, Qual Neg Acetaminophen Urine Barbiturates Neg Ur Phencyclidine (PCP) Neg U Amphetamin/Meth Scrn Neg MDMA (Ecstasy) Screen Neg U Benzodiazepines Scrn Neg Ur Cocaine Metabolite Neg U Marijuana (THC) Screen Pos H U Marijuana THC Carboxy Drug Screen Comment Ethyl Alcohol mg/dL < 3.0 06/05/19 06/05/19 06/07/19 22:55 22:55 07:00 WBC RBC Hgb Hct MCV MCH MCHC RDW Std Deviation RDW Coeff of Conner Plt Count MPV Immature Gran % (Auto) Neut % (Auto) Lymph % (Auto) Beadle % (Auto) Eos % (Auto) Baso % (Auto) Immature Gran # (Auto) Neut # (Auto) Lymph # (Auto) Beadle # (Auto) Eos # (Auto) Baso # (Auto) Sodium Potassium 3.6 D Chloride Carbon Dioxide Anion Gap BUN Creatinine Est Cr Clr Drug Dosing Est GFR ( Amer) Est GFR (Non-Af Amer) BUN/Creatinine Ratio Glucose Fasting Glucose Calcium Total Bilirubin AST ALT Alkaline Phosphatase Total Protein Albumin Globulin Albumin/Globulin Ratio Triglycerides Cholesterol LDL Cholesterol, Calc VLDL Cholesterol, Calc HDL Cholesterol Cholesterol/HDL Ratio TSH HCG, Qual Urine Color Yellow Urine Appearance Clear Urine pH 5.5 Ur Specific [place] 1.012 Urine Protein Negative Urine Glucose (UA) Negative Urine Ketones Trace H Urine Blood Trace H Urine Nitrite Negative Urine Bilirubin Negative Urine Urobilinogen Negative Ur Leukocyte Esterase Trace H Urine WBC (Auto) 1-5 Urine RBC (Auto) 0-4 U Hyaline Cast (Auto) 1-5 U Epithel Cells (Auto) >30 H Urine Bacteria (Auto) 1+ H Salicylates Urine Opiates Screen Ur Methadone, Qual Acetaminophen Urine Barbiturates Ur Phencyclidine (PCP) U Amphetamin/Meth Scrn MDMA (Ecstasy) Screen U Benzodiazepines Scrn Ur Cocaine Metabolite U Marijuana (THC) Screen U Marijuana THC Carboxy 448 H Drug Screen Comment SEE NOTE Ethyl Alcohol mg/dL 06/10/19 05:23 WBC RBC Hgb Hct MCV MCH MCHC RDW Std Deviation RDW Coeff of Conner Plt Count MPV Immature Gran % (Auto) Neut % (Auto) Lymph % (Auto) Beadle % (Auto) Eos % (Auto) Baso % (Auto) Immature Gran # (Auto) Neut # (Auto) Lymph # (Auto) Beadle # (Auto) Eos # (Auto) Baso # (Auto) Sodium Potassium Chloride Carbon Dioxide Anion Gap BUN Creatinine Est Cr Clr Drug Dosing Est GFR ( Amer) Est GFR (Non-Af Amer) BUN/Creatinine Ratio Glucose Fasting Glucose 91 Calcium Total Bilirubin AST ALT Alkaline Phosphatase Total Protein Albumin Globulin Albumin/Globulin Ratio Triglycerides 72 Cholesterol 144 LDL Cholesterol, Calc 63 VLDL Cholesterol, Calc 14 HDL Cholesterol 67 Cholesterol/HDL Ratio 2 TSH HCG, Qual Urine Color Urine Appearance Urine pH Ur Specific [place] Urine Protein Urine Glucose (UA) Urine Ketones Urine Blood Urine Nitrite Urine Bilirubin Urine Urobilinogen Ur Leukocyte Esterase Urine WBC (Auto) Urine RBC (Auto) U Hyaline Cast (Auto) U Epithel Cells (Auto) Urine Bacteria (Auto) Salicylates Urine Opiates Screen Ur Methadone, Qual Acetaminophen Urine Barbiturates Ur Phencyclidine (PCP) U Amphetamin/Meth Scrn MDMA (Ecstasy) Screen U Benzodiazepines Scrn Ur Cocaine Metabolite U Marijuana (THC) Screen U Marijuana THC Carboxy Drug Screen Comment Ethyl Alcohol mg/dL Hospital Course (1) Paranoia: 06/06/19 -The patient describes herself as being "paranoid." Although she has difficulty explaining what she means by the use of the word "paranoia," and while she does not reveal any tracie delusional believes, she does say that she has difficulty trusting other people, and often doubts the veracity and intentions of other people. -The patient adds that she feels that her paranoia is brought on by a chronic feeling of anxiety, which she describes as a sense that "something bad is about to happen," even though she is unable to recognize what that might be. -Because the patient has reported that her paranoia has responded favorably to aripiprazole in the past, we will begin the aripiprazole 10 mg daily and titrate as indicated. -The patient is also been referred for individual, group and activity therapies and will be encouraged to attend as a way of developing improved individual coping strategies. 06/07/19--continue Abilify 10 mg today, may require additional Haldol prn. Consider MCCLAIN. 06/07--d/c Abilify, Seroquel 50 mg po qhs with plan to titrate, Zyprexa prn as ordered in interim. 06/08--Seroquel to 100 mg this hs, currently states she will refuse, Zyprexa dissolvable PO prn as ordered. Given level of agitation this am feel elopement precautions are warranted and will order Zyprexa 10 mg IM in case of emergency restraint and ultimately this may need to be given in place of PO meds if starts refusing consistently. Given presentation to ED and hospital course thus far, it is my medical opinion that she will fail to show improvement without forced antipsychotic medication for mood stabilization. She is unable to care for basic needs and has exhibited significant level of impulsivity that or serious physical disability would likely occur within 30 days without these interventions. Case discussed with assistant community director Dr. Murray who will do second opinion as needed. (2) Aggressive behavior: 06/06 -The patient's behavior in the emergency room was extremely agitated and largely [id number]. At one point she required mechanical restraints in order to preserve her safety and the safety of others around her. She also acknowledges that, in the past, she has "defended herself" [physically] when necessary when threatened, and this is within the context of her telling us that she feels "paranoid." However, the patient also tells us that she is having no thoughts currently of causing physical harm to anyone and that she will let us know if she begins to feel unsafe or threatened on the unit. --continue medically necessary private room due to lability. 06/08--elopement precautions and MNPR (3) Dehydration: 06/06 -Patient acknowledges that her oral intake has been poor recently. We will encourage fluids and adequate nutrition during the stay. --resolved. (4) Hypokalemia: 06/06 -We will encourage adequate nutrition during the stay. -Potassium chloride supplement 20 mEq has been ordered, and her serum potassium will be rechecked on 06/07/2019. -The patient is not exhibiting any symptoms of hypokalemia at present. resolved (5) Bipolar disorder: 06/06 -Both the patient and her mother report that she has a history of responding favorably to lamotrigine as a mood stabilizer, as well as to aripiprazole, also has a mood stabilizer and is an antipsychotic. The issue, as noted above has been that the patient is often nonadherent with her outpatient medications and other forms of treatment. -Lamotrigine 25 mg daily has been ordered. Material risks and anticipated benefits of lamotrigine have been reviewed with the patient. Specific risks reviewed with the patient included, but were not limited to, risk of Nicolas- Ismael syndrome and a rash. The patient tells us that she has no history of having any difficulty or side effects associated with lamotrigine in the past. The plan will be to titrate lamotrigine at the standard rate. -Aripiprazole 10 mg daily has been ordered and will be titrated as indicated. The patient reports that she has previously taken aripiprazole. Material risks and anticipated benefits of aripiprazole reviewed with the patient, and she indicates that she has had no problem or side effects with aripiprazole in the past. -Patient reports that she has difficulty sleeping, possibly as the result of her bipolar disorder or as a result of her anxiety. In the past, she has responded favorably to trazodone 50 mg at bedtime as needed for sleep, and this medication at this dose has been ordered. Mental Health & Subst Abuse Tx Psychiatrist [facility] Date of Appointment with Psychiatrist: 07/04/19 Time of Appointment with Psychiatrist: 1:00 p.m. Psychiatric Appointment Comment: [phone] [place] [address] Therapist Name of Therapist: [facility] Alisa Ramirez LCSW Therapist's Date of Therapist Appointment: 06/18/19 Time of Therapist Appointment: 12:00 p.m. Therapy Appointment Comment: [phone] [place] [address] Maintenance Technician 3Rd Shift Name of Maintenance Technician 3Rd Shift: Choco Lopez Phone Number for Maintenance Technician 3Rd Shift: [phone] Case Management Appointment Comment: A female pillowcase sewer will follow up with you Post Discharge Appointments Primary Care Physician Name Of Family Doctor: DEJAN Pruett [facility] Time of Appointment with PCP: Please follow up as needed Provider Appointment Comment: [phone] [facility] Smoking Cessation Counseling Tobacco Cessation Medication Prescribed at Discharge: Offered & Pt Refused Contact Information Discharge Discharge [address]: [address] [place] [address], [place] [address] Discharge Plan Discharge Items Patient Disposition: Home - Self-Care Reason For Visit: BIPOLAR, BORDERLINE PERSONALITY Discharge Diagnosis: bipolar I disorder, most recent episode manic Activity: Resume your previous activity Non-emergency contact: Primary Care Provider, Psychiatrist and Therapist Call non-emergency contact if: you have any medication questions and your symptoms worsen Follow-up/Referrals: Jesse Pruett III, CRNP [Primary Care Provider] - Diet: Regular Addtl Attending Provider Instructions: SPECIAL CARE INSTRUCTIONS: 1. Follow through with your scheduled aftercare appointments. If unable to keep an appointment, please call to reschedule. 2. Take your medication only as prescribed. Medication should not be changed or stopped without the approval of your doctor. In the event of worsening symptoms or concerns about side effects, contact your doctor immediately. 3. Utilize new healthy coping skills, anger management skills, and stress management skills learned during your hospitalization. Journal feelings and process them with a support person. Identify stressors or situations that may result in relapse, deterioration or inappropriate behaviors and develop a plan to deal with those issues. 4. If your coping skills are ineffective and you are in crisis, contact your outpatient providers for direction. If unable to reach your providers, please call the CAN HELP LINE AT or go to the closest Emergency Room. 5. Avoid alcohol and un-prescribed drugs. 6. You have been provided with the Mental Health Advance Directives Pamphlet for your review. AFTERCARE APPOINTMENTS: * Please call your insurance company prior to your scheduled appointment to confirm your aftercare providers are covered. Take your insurance information to your appointments. WHO TO CALL AND WHEN: Medical Emergencies: For questions or emergencies related to your hospital stay, please contact the Inpatient Behavioral Health Unit at [phone]. A care clinician is on-call 30/10 for the Behavioral Health Unit for emergencies At any time you feel your situation is an emergency, you may also call 911 immediately. Your Doctors Instructions noted above were prepared by provider Laurence Quiroz MD. Pending Studies at Discharge: No Stand-Alone Forms: [facility], Smoking Cessation, Suicide Prevention Resources Medications and DC Order Prescriptions: New lamotrigine [Lamictal] 25 mg Tablet 25 mg PO HS Qty: 37 RF: 0 olanzapine [Zyprexa] 5 mg tablet 5 mg PO DAILY Qty: 30 RF: 0 olanzapine [Zyprexa] 10 mg tablet 10 mg PO HS Qty: 30 RF: 0 Discontinued trazodone 50 mg tablet 50 mg PO DAILY Qty: 30 RF: 5 Discharge Orders: Discharge Order (Routine); Ordered 06/17/19 Ordered By: Laurence Quiroz Admission Data Admit Date/Time: 06/06/19 12:59 Attending Provider: Helsel,Jesse S. Admit Provider: Jesse Bailey Primary Care Provider: Jesse Pruett III Other Interventions: PSY Interdisciplinary Discharge Planning Last Done: 06/16/19 11:03 Coding Level of Care Code 45366 D/C day mgmt > 30 min Diagnoses Paranoia F22 Aggressive behavior R46.89 Dehydration E86.0 Hypokalemia E87.6 Bipolar disorder F31.9
== END 2019-06-17 10:40 | disposition home or self-care (01) | DRG 885 ==
LOC: ED 19:20 → SUATTDRO 06-06 12:59 → 3S 06-06 12:59